=== PATIENT | male | born 1945 | race Caucasian/White ===

== ENCOUNTER → 2020-03-04 09:50 | Outpatient (BNV) | payer MEDICARE, OTHER, SELFPAY | PROVIDERS: PCP Physician Assistant; Visit Provider Internal Medicine | DX: C91.10 Chronic lymphocytic leukemia of B-cell type not having achieved remission (principal) | CPT/HCPCS: 99213; 99214; G2211 ==

== ENCOUNTER 2020-06-24 13:57 | Outpatient (REF) | payer MEDICARE, OTHER, SELFPAY ==
[2020-06-24 15:28] LABS: Alanine Aminotransferase 19 U/L (0-40); Alkaline Phosphatase 50 U/L (39-117); Anion Gap 10 (12-20); Aspartate Amino Transferase 25 U/L (5-37); Bilirubin Total 0.6 mg/dL (0.0-1.0); Blood Urea Nitrogen 15 mg/dL (9-16); Calcium 8.6 mg/dL (8.4-10.2); Carbon Dioxide 29 mmol/L (22-29); Chloride 104 mmol/L (96-108); Cholesterol 147 mg/dL; Estimated Glomerular Filt Rate > 60; Glucose Random 87 mg/dL (60-115); HDL Cholesterol 54 mg/dL; LDL Cholesterol Calculated 80 mg/dl; Potassium 4.4 mmol/L (3.3-5.1); Sodium 139 mmol/L (135-145); Total Protein 6.2 g/dL (6.5-8.0); Triglycerides 65 mg/dL
== END 2020-06-24 13:58 | disposition home or self-care (01) ==
LOC: HO.LAB 13:57
PROVIDERS: PCP Physician Assistant; Visit Provider Internal Medicine Cardiovascular Disease
DX: I10 Essential (primary) hypertension (principal)
CPT/HCPCS: 36415; 80053; 80061

== ENCOUNTER 2020-09-19 18:44 | Emergency (ER) | payer MEDICARE, OTHER, SELFPAY ==
--- NOTE | ~2020-09-19 | XR_ITS ---
EXAMINATION: RIGHT FOREARM AND RIGHT ELBOW. CLINICAL INFORMATION: Hit in the right arm with disc. Pain and laceration. COMPARISON: None TECHNIQUE: 3 views right elbow. 2 views right forearm FINDINGS: RIGHT FOREARM: There is no visible acute fracture or bony abnormality. The soft tissues are normal. RIGHT ELBOW: There is no visible acute fracture, dislocation or subluxation. The soft tissues are normal. XR/XR forearm RT 2V IMPRESSION: Unremarkable right forearm exam. Unremarkable right elbow exam.
--- NOTE | ~2020-09-19 | XR_ITS ---
EXAMINATION: RIGHT FOREARM AND RIGHT ELBOW. CLINICAL INFORMATION: Hit in the right arm with disc. Pain and laceration. COMPARISON: None TECHNIQUE: 3 views right elbow. 2 views right forearm FINDINGS: RIGHT FOREARM: There is no visible acute fracture or bony abnormality. The soft tissues are normal. RIGHT ELBOW: There is no visible acute fracture, dislocation or subluxation. The soft tissues are normal. XR/XR elbow RT min 3V IMPRESSION: Unremarkable right forearm exam. Unremarkable right elbow exam.
[2020-09-19 18:50] VITALS: BP 121/80; PULSE 65; RESP 16; TEMP 36.6; O2SAT 100; BMI 25.0
--- NOTE | 2020-09-19 19:54 | ED_ITS ---
HPI - Wound/Laceration General Chief Complaint: Wound/Laceration Stated Complaint: fish line in arm Time Seen by Provider: 09/19/20 19:30 Source: patient Mode of arrival: ambulatory Limitations: no limitations History of Present Illness HPI narrative: 75 y/o male with history of CLL, BPH, CAD on baby ASA, hypothyroidism, HTN presents to the ER with right forearm pain after he was hit with a discus today. He was playing a field, tripped over a tuft of grass when he was running and the discus grazed his right forehead and then hit his right inner forearm. He had an immediate bruise to his forearm and slight one to his upper right eye. No headache, dizziness, LOC or neck pain. He tightly wrapped his forearm and came to the ER for evaluation. He states his hand started to feel cold. No numbness or tingling. Onset (ago): hour(s) (2) Location: face Extremity Location: right: forearm Place: park Patient tetanus UTD: Yes Context: accidental Associated symptoms: pain Treatments prior to arrival: bandage Related Data Home Medications Medication Instructions Recorded Confirmed finasteride 5 mg tablet 5 mg PO DAILY 03/03/20 06/30/20 isosorbide mononitrate 30 mg 30 mg PO DAILY tab 03/03/20 06/30/20 tablet,extended release 24 hr lisinopril 2.5 mg tablet 2.5 mg PO DAILY 03/03/20 06/30/20 mexiletine 200 mg capsule 200 mg PO BID 03/03/20 06/30/20 ranolazine 500 mg tablet,extended 500 mg PO BID 03/03/20 06/30/20 release,12 hr tamsulosin 0.4 mg capsule 0.4 mg PO DAILY 03/03/20 06/30/20 alpha lipoic acid 200 mg PO 3XW 03/04/20 06/30/20 ascorbic acid (vitamin C) [Vitamin 1 g PO 3XW 03/04/20 06/30/20 C] aspirin 162 mg PO DAILY 03/04/20 06/30/20 cholecalciferol (vitamin D3) 50 mcg PO 3XW 03/04/20 06/30/20 [Vitamin D3] coenzyme Q10 [CoQ-10] 200 mg PO DAILY 03/04/20 06/30/20 ginkgo biloba 120 mg PO BID 03/04/20 06/30/20 hawthorn 100 mg PO DAILY 03/04/20 06/30/20 iron 10 mg PO 3XW 03/04/20 06/30/20 magnesium oxide,aspartate,citr 400 mg PO 3XW 03/04/20 06/30/20 rosuvastatin 20 mg tablet 20 mg PO BEDTIME 06/30/20 09/03/20 Previous Rx's Medication Instructions Recorded levothyroxine 112 mcg tablet 112 mcg PO QAM #90 tab 05/01/20 docusate sodium 100 mg capsule 100 mg PO DAILY 60 Days #60 cap 05/06/20 Allergies Allergy/AdvReac Type Severity Reaction Status Date / Time Penicillins [PENICILLINS] Allergy Mild HIVES Verified 06/30/20 11:26 Review of Systems 2 Review of Systems: Constitutional: No Fever, No Chills Eyes: + Eye Pain, No Swelling, No Redness Cardiovascular: No Chest Pain, No SOB Gastrointestinal: No Nausea, No Vomiting Musculoskeletal:+o joint pain, + Myalgias Skin: + Skin Lesions, No rash Neuro: No Weakness, No Numbness, No Dizziness, No Headache Heme/Lymph: + Bruising, No Lymphadenopathy PMFSH Past Medical History Medical History (Updated 09/19/20 @ 19:56 by RL Wall) CAD (coronary artery disease) CLL (chronic lymphocytic leukemia) Hx of cardiac arrest Hypercholesterolemia Hypothyroidism Skin cancer, basal cell Surgical History (Updated 09/03/20 @ 10:03 by Libra Wagner MD) History of bilateral knee arthroplasty Hx of colonoscopy Hx of thyroidectomy Family History Family History (Updated 09/03/20 @ 07:25 by Lora Sanchez) Mother Breast cancer Father Aneurysm Sister Pancreatic cancer Daughter Thyroid cancer Social History Social History (Updated 09/03/20 @ 09:54 by Lora Sanchez) Alcohol intake: current Alcohol intake frequency: 0-2 drinks per day Alcohol type: beer Smoking Status: Never smoker Advance Directives: No Advance Directives Information Provided: Yes Physical Exam Vital Signs: Vital Signs: Last Vital Signs Temp 97.8 F 09/19/20 18:50 Pulse 65 09/19/20 18:50 Resp 16 09/19/20 18:50 BP 121/80 09/19/20 18:50 Pulse Ox 100 09/19/20 18:50 Body Mass Index 25.0 Appearance: Alert. Oriented X3. No acute distress. HEENT: small ecchymosis to right upper orbit, mild tenderness. PERRLA, EOMI, no nystagmus CVS: Normal heart rate and rhythm. Pulses normal. Respiratory: No respiratory distress. Skin: Skin warm and dry. Normal skin color. Normal skin turgor. No rashes. Extremities: right ventral forearm with 4 cm superficial ecchymosis with de leon perficial abrasion. No active bleeding. NV intact distally. Neuro: Oriented X 3. No motor deficit. No sensory deficit. Course Course Course Narrative: 75 y/o male presenting with right forearm pain after he got hit with a discus. XR's are negative. Small bruise above right eye. No loss of consciousness. Not on blood thinners. Dressing applied to forearm. He was counseled on management of contusions and warning signs to return. He is stable for discharge. Discharge Plan Discharge Clinical Impression: Contusion Qualifiers: Encounter type: initial encounter Contusion area: forearm Laterality: right Qualified Code(s): S50.11XA - Contusion of right forearm, initial encounter Patient Disposition: Home, Self-Care Instructions: Contusion in Adults (ED) Additional Instructions: Your x-rays today were normal. Use ice to the area several times per day. Elevate when possible. Use bacitracin to the wound to help healing and prevent infection. Wear the DARRIN wrap as needed for comfort. Follow up with your doctor next week. Prescriptions: No Action levothyroxine 112 mcg tablet 112 mcg PO QAM Qty: 90 RF: 1 docusate sodium [Colace] 100 mg capsule 100 mg PO DAILY 60 Days Qty: 60 RF: 1 ginkgo biloba 120 mg Tablet 120 mg PO BID RF: 0 aspirin 162 mg Tablet,Delayed Release (Dr/Ec) 162 mg PO DAILY RF: 0 iron 18 mg Tablet 10 mg PO 3XW RF: 0 coenzyme Q10 [CoQ-10] 100 mg Capsule 200 mg PO DAILY RF: 0 ascorbic acid (vitamin C) [Vitamin C] 1,000 mg Tablet 1 g PO 3XW RF: 0 cholecalciferol (vitamin D3) [Vitamin D3] 50 mcg (2,000 unit) Tablet 50 mcg PO 3XW RF: 0 alpha lipoic acid 200 mg Tablet 200 mg PO 3XW RF: 0 hawthorn 250 mg Capsule 100 mg PO DAILY RF: 0 magnesium oxide,aspartate,citr 400 mg magnesium Capsule 400 mg PO 3XW RF: 0 finasteride 5 mg tablet 5 mg PO DAILY RF: 0 mexiletine 200 mg capsule 200 mg PO BID RF: 0 ranolazine 500 mg tablet extended release 12 hr 500 mg PO BID RF: 0 tamsulosin 0.4 mg capsule 0.4 mg PO DAILY RF: 0 lisinopril 2.5 mg tablet 2.5 mg PO DAILY RF: 0 isosorbide mononitrate 30 mg tablet extended release 24 hr 30 mg PO DAILY RF: 0 rosuvastatin 20 mg tablet 20 mg PO BEDTIME RF: 0
== END 2020-09-19 20:22 | disposition home or self-care (01) ==
PROVIDERS: Emergency Provider Emergency Medicine; PCP Physician Assistant
DX: S50.11XA Contusion of right forearm, initial encounter (principal); M79.631 Pain in right forearm; W01.0XXA Fall on same level from slipping, tripping and stumbling without subsequent striking against object, initial encounter; Y93.02 Activity, running; Y92.821 Forest as the place of occurrence of the external cause; Y99.9 Unspecified external cause status; Z79.899 Other long term (current) drug therapy
CPT/HCPCS: 73080; 73090; 99283

== ENCOUNTER 2020-11-14 10:12 | Emergency (ER) | payer MEDICARE, OTHER, SELFPAY ==
--- NOTE | ~2020-11-14 | XR_ITS ---
EXAMINATION: XR SHOULDER, LEFT CLINICAL INFORMATION: Pain. COMPARISON: None TECHNIQUE: Three views of the left shoulder. FINDINGS: There is mild reduction in the glenohumeral joint space with inferior periarticular spurring. The AC joint space is maintained.. There are 2 dense loose body seen in the subscapularis bursa measuring 2 cm and 1 cm. The soft tissues are normal. XR/XR shoulder LT min 2V IMPRESSION: Mild degenerative changes left glenohumeral joint space. 2 loose bodies in the subscapularis bursa.
--- NOTE | ~2020-11-14 | XR_ITS ---
EXAMINATION: LUMBAR SPINE AND PELVIS AND LEFT HIP X-RAY CLINICAL INFORMATION: Fall. Pain. COMPARISON: None TECHNIQUE: 3 views of the lumbar spine, one view of the pelvis and 2 views of the left hip FINDINGS: Lumbar spine: There is mild 5 mm anterior subluxation of L4 with respect L5. Bone alignment is otherwise normal. No fracture or dislocation is seen. Disc spaces are normal. There is lower lumbar spine facet arthritis. There is evidence of atherosclerotic disease. There is a pacemaker defibrillator device projecting over the heart. Pelvis and left hip: Bone alignment is normal. No fracture or dislocation is seen. There is left hip arthritis with joint space narrowing, osteophyte formation and some subchondral cyst formation. Bones of the pelvis are unremarkable. Soft tissues are unremarkable. XR/XR lumbar spine 2-3V IMPRESSION: Lumbar spine: No fracture or dislocation. Mild anterior subluxation of L4 with respect L5 probably related to facet arthritis. Pelvis and left hip x-ray: No fracture or dislocation. Left hip arthritis.
--- NOTE | ~2020-11-14 | XR_ITS ---
EXAMINATION: LUMBAR SPINE AND PELVIS AND LEFT HIP X-RAY CLINICAL INFORMATION: Fall. Pain. COMPARISON: None TECHNIQUE: 3 views of the lumbar spine, one view of the pelvis and 2 views of the left hip FINDINGS: Lumbar spine: There is mild 5 mm anterior subluxation of L4 with respect L5. Bone alignment is otherwise normal. No fracture or dislocation is seen. Disc spaces are normal. There is lower lumbar spine facet arthritis. There is evidence of atherosclerotic disease. There is a pacemaker defibrillator device projecting over the heart. Pelvis and left hip: Bone alignment is normal. No fracture or dislocation is seen. There is left hip arthritis with joint space narrowing, osteophyte formation and some subchondral cyst formation. Bones of the pelvis are unremarkable. Soft tissues are unremarkable. XR/XR hip LT w PEL1V IMPRESSION: Lumbar spine: No fracture or dislocation. Mild anterior subluxation of L4 with respect L5 probably related to facet arthritis. Pelvis and left hip x-ray: No fracture or dislocation. Left hip arthritis.
[2020-11-14 10:14] VITALS: BP 112/69; PULSE 65; RESP 16; TEMP 36.1; O2SAT 98; BMI 24.3
--- NOTE | 2020-11-14 12:37 | ED.FALL ---
HPI - Fall General Chief Complaint: Fall Stated Complaint: SHOULDER PAIN Time Seen by Provider: 11/14/20 10:54 Source: patient Mode of arrival: ambulatory Limitations: no limitations History of Present Illness HPI Narrative: 75-year-old male with a past medical history of coronary artery disease, CLL, high cholesterol, hypothyroidism here with complaints of fall last evening. Patient tells me that he slipped on 1 stair falling backwards hitting his left lower back and left shoulder. He denies head injury or loss of consciousness. He is not on any anticoagulation. He is ambulatory. Related Data Home Medications Medication Instructions Recorded Confirmed lisinopril 2.5 mg tablet 2.5 mg PO DAILY 03/03/20 10/28/20 mexiletine 200 mg capsule 200 mg PO BID 03/03/20 10/28/20 ranolazine 500 mg tablet,extended 500 mg PO BID 03/03/20 10/28/20 release,12 hr alpha lipoic acid 200 mg PO 3XW 03/04/20 10/28/20 ascorbic acid (vitamin C) [Vitamin 1 g PO 3XW 03/04/20 10/28/20 C] aspirin 162 mg PO DAILY 03/04/20 10/28/20 cholecalciferol (vitamin D3) 50 mcg PO 3XW 03/04/20 10/28/20 [Vitamin D3] coenzyme Q10 [CoQ-10] 200 mg PO DAILY 03/04/20 10/28/20 ginkgo biloba 120 mg PO BID 03/04/20 10/28/20 hawthorn 100 mg PO DAILY 03/04/20 10/28/20 iron 10 mg PO 3XW 03/04/20 10/28/20 magnesium oxide,aspartate,citr 400 mg PO 3XW 03/04/20 10/28/20 rosuvastatin 20 mg tablet 20 mg PO BEDTIME 06/30/20 10/28/20 Previous Rx's Medication Instructions Recorded levothyroxine 112 mcg tablet 112 mcg PO QAM #90 tab 05/01/20 tamsulosin 0.4 mg capsule 0.4 mg PO DAILY #90 cap 09/23/20 docusate sodium 100 mg capsule 100 mg PO DAILY 60 Days #60 cap 09/29/20 finasteride 5 mg tablet 5 mg PO DAILY #90 tab 10/28/20 isosorbide mononitrate 30 mg 30 mg PO DAILY 30 Days #30 tab 11/12/20 tablet,extended release 24 hr Allergies Allergy/AdvReac Type Severity Reaction Status Date / Time Penicillins [PENICILLINS] Allergy Mild HIVES Verified 10/28/20 13:54 Review of Systems Review of Systems: Yes all other systems are reviewed and are negative Constitutional: Constitutional: Reports no additional constitutional complaints, Denies body ache(s), Denies chills, Denies fever(s), Denies headache(s) and Denies weakness Eyes: Eyes: Reports no additional eye complaints and Denies change in vision ENT: Reports system reviewed and no additional complaints, except as documented, Denies dizziness, Denies headache(s), Denies nasal congestion, Denies nasal discharge and Denies neck pain Cardiovascular: Cardiovascular: Reports no additional cardiovascular complaints, Denies chest pain, Denies leg edema and Denies dyspnea Respiratory: Respiratory: Reports no additional respiratory complaints, Denies cough and Denies dyspnea Gastrointestinal: Gastrointestinal: Reports no additional gastrointestinal complaints, Denies abdominal pain, Denies diarrhea, Denies nausea and Denies vomiting Genitourinary: Genitourinary: Denies urinary incontinence Musculoskeletal: Musculoskeletal: Reports no additional musculoskeletal complaints, Reports back pain, Reports arthralgias, Denies joint swelling, Denies neck pain, Denies numbness and Denies tingling Integumentary/Breasts: Skin/Breast: Reports system reviewed and no additional complaints, except as docu and Denies rash Neurologic: Reports system reviewed and no additional complaints, except as documented, Denies Abnormal speech present, Denies dizziness, Denies headache(s), Denies numbness, Denies tingling and Denies weakness [facility] Past Medical History Attestation statement: The following information was validated with the patient. Source: old records reviewed and nursing notes reviewed Medical History CAD (coronary artery disease) CLL (chronic lymphocytic leukemia) Hx of cardiac arrest Hypercholesterolemia Hypothyroidism Skin cancer, basal cell Surgical History History of bilateral knee arthroplasty Hx of colonoscopy Hx of thyroidectomy Family History Family History Mother Breast cancer Father Aneurysm Sister Pancreatic cancer Daughter Thyroid cancer Social History Social History Housing: House Alcohol intake: current Alcohol intake frequency: 0-2 drinks per day Alcohol type: beer Patient Tobacco Use Status: Never used Tobacco Second Hand Smoke Exposure: No Advance Directives: Yes Advance Directives Information Provided: Yes Advance Directives on File: No service: No Current occupational status: retired Physical Exam Vital Signs: Vital Signs: Last Vital Signs Temp 96.9 F 11/14/20 10:14 Pulse 65 11/14/20 10:14 Resp 16 11/14/20 10:14 BP 112/69 11/14/20 10:14 Pulse Ox 98 11/14/20 10:14 Body Mass Index 24.3 Const: General: cooperative, healthy appearing, comfortable and no acute distress Orientation/consciousness: patient oriented x3 Limitations: no limitations HENMT: Head: Yes normal to inspection Ears: hearing grossly normal bilaterally General nose exam: Normal external nose present Face and sinus: Yes normal facial exam Mouth: Normal oral and palatal mucosa present Throat: Yes posterior oropharynx normal Eyes: General: appearance normal, both eyes and all related structures Pupils: Equal, round and reactive pupils present Neck: Other: no midline tenderness, step-offs or deformities. Full range of motion Neck: Yes normal visual inspection Chest: Chest palpation & inspection: normal inspection of the chest Resp: Effort & Inspection: normal respiratory effort Auscultation: clear to auscultation bilaterally Cardio: Rate: regular rate Rhythm: regular rhythm Peripheral pulses: Peripheral pulses 2+ throughout GI: Inspection: Yes normal to inspection Palpation (GI): Soft to palpation and nontender Auscultation: normal bowel sounds Back/Spine/Pelvis: Other: no lumbar midline tenderness. There is tenderness over the left SI joint and left lumbar soft tissue area as well as over the left posterior hip and pelvis. The patient has full range of motion. He is ambulatory in the room. No ecchymosis, swelling or deformity Thoracic/Lumbar Spine: thoracic and lumbar spine normal to inspection Skin: General skin exam: no rashes or lesions noted Neuro: General: patient oriented x3, no focal motor deficits and normal sensation to monofilament Cranial nerves: Yes CN's II-XII intact bilaterally, Yes Equal, round and reactive pupils present, Yes Bilaterally intact EOM present, Yes Nystagmus not present, Yes Normal facial strength present and Yes Midline tongue present Cognition (Neuro): normal cognition Speech: No Abnormal speech present Gait exam (Neuro): Normal gait present Motor exam (neuro): 5/5 motor strength present throughout Sensory Exam: Normal double simultaneous stimulation for sensation Coordination: [id number] test normal, [id number] test normal and tandem gait normal Extrem: Other: tenderness to left posterior shoulder with full range of motion and no obvious ecchymosis, deformity or swelling. General: Yes normal to inspection Course Course Course Narrative: Mechanical fall with several MS complaints. no head injury or loss of consciousness. Normal neurological exam. Hemodynamically stable. Patient not on anticoagulation. Will check imaging. - x-ray show no bony abnormality. Likely some degenerative changes in the left shoulder but no acute fracture. Reviewed findings with the patient. Again he is ambulatory without assistance. Recommended supportive care at home. Reviewed worrisome signs and symptoms of when to return to the emergency department. Comfortable discharge home. MDM - Fall Medical Records Attestation: I reviewed the patient's medical records. Lab Data Attestation: I reviewed the patient's lab results. Imaging Data shoulder x-ray: Attestation: I personally reviewed and interpreted this imaging study as follows: Radiologist's impression: EXAMINATION: XR SHOULDER, LEFT CLINICAL INFORMATION: Pain. COMPARISON: None TECHNIQUE: Three views of the left shoulder. FINDINGS: There is mild reduction in the glenohumeral joint space with inferior periarticular spurring. The AC joint space is maintained.. There are 2 dense loose body seen in the subscapularis bursa measuring 2 cm and 1 cm. The soft tissues are normal. XR/XR shoulder LT min 2V IMPRESSION: Mild degenerative changes left glenohumeral joint space. 2 loose bodies in the subscapularis bursa. hip/pelvis/lumbar xray: Attestation: I personally reviewed and interpreted this imaging study as follows: Radiologist's impression: t hip FINDINGS: Lumbar spine: There is mild 5 mm anterior subluxation of L4 with respect L5. Bone alignment is otherwise normal. No fracture or dislocation is seen. Disc spaces are normal. There is lower lumbar spine facet arthritis. There is evidence of atherosclerotic disease. There is a pacemaker defibrillator device projecting over the heart. Pelvis and left hip: Bone alignment is normal. No fracture or dislocation is seen. There is left hip arthritis with joint space narrowing, osteophyte formation and some subchondral cyst formation. Bones of the pelvis are unremarkable. Soft tissues are unremarkable. XR/XR lumbar spine 2-3V IMPRESSION: Lumbar spine: No fracture or dislocation. Mild anterior subluxation of L4 with respect L5 probably related to facet arthritis. Pelvis and left hip x-ray: No fracture or dislocation. Left hip arthritis. Discharge Plan Discharge Clinical Impression: Contusion of shoulder, Contusion of hip Patient Disposition: Home, Self-Care Instructions: Contusion in Adults (ED) Additional Instructions: ice at 1st then transition to heat gentle stretching Tylenol for pain follow-up with primary care if continuing to have pain after several days Prescriptions: No Action levothyroxine 112 mcg tablet 112 mcg PO QAM Qty: 90 RF: 1 tamsulosin 0.4 mg capsule 0.4 mg PO DAILY Qty: 90 RF: 0 docusate sodium [Colace] 100 mg capsule 100 mg PO DAILY 60 Days Qty: 60 RF: 3 finasteride 5 mg tablet 5 mg PO DAILY Qty: 90 RF: 0 isosorbide mononitrate 30 mg tablet extended release 24 hr 30 mg PO DAILY 30 Days Qty: 30 RF: 2 ginkgo biloba 120 mg Tablet 120 mg PO BID RF: 0 aspirin 162 mg Tablet,Delayed Release (Dr/Ec) 162 mg PO DAILY RF: 0 iron 18 mg Tablet 10 mg PO 3XW RF: 0 coenzyme Q10 [CoQ-10] 100 mg Capsule 200 mg PO DAILY RF: 0 ascorbic acid (vitamin C) [Vitamin C] 1,000 mg Tablet 1 g PO 3XW RF: 0 cholecalciferol (vitamin D3) [Vitamin D3] 50 mcg (2,000 unit) Tablet 50 mcg PO 3XW RF: 0 alpha lipoic acid 200 mg Tablet 200 mg PO 3XW RF: 0 hawthorn 250 mg Capsule 100 mg PO DAILY RF: 0 magnesium oxide,aspartate,citr 400 mg magnesium Capsule 400 mg PO 3XW RF: 0 mexiletine 200 mg capsule 200 mg PO BID RF: 0 ranolazine 500 mg tablet extended release 12 hr 500 mg PO BID RF: 0 lisinopril 2.5 mg tablet 2.5 mg PO DAILY RF: 0 rosuvastatin 20 mg tablet 20 mg PO BEDTIME RF: 0 Referrals: Eitan Ocampo PA-C [Primary Care Provider] - 2 days Interventions: ED Discharge Assessment Last Done: 11/14/20 12:30 Discharge Date/Time: 11/14/20 12:31
== END 2020-11-14 12:31 | disposition home or self-care (01) ==
PROVIDERS: Emergency Provider Emergency Medicine Emergency Medical Services; PCP Physician Assistant
DX: S40.012A Contusion of left shoulder, initial encounter (principal); S70.02XA Contusion of left hip, initial encounter; I25.10 Atherosclerotic heart disease of native coronary artery without angina pectoris; Z79.82 Long term (current) use of aspirin; W01.0XXA Fall on same level from slipping, tripping and stumbling without subsequent striking against object, initial encounter; Y93.9 Activity, unspecified; Y92.9 Unspecified place or not applicable; Y99.9 Unspecified external cause status; Z86.74 Personal history of sudden cardiac arrest
CPT/HCPCS: 72100; 73030; 73502; 99283

== ENCOUNTER 2021-01-30 08:18 | Outpatient (REF) | payer MEDICARE, OTHER, SELFPAY | END 2021-01-30 08:19 | disposition home or self-care (01) | LOC: HO.LAB 08:18 | PROVIDERS: PCP Physician Assistant; Visit Provider Physician Assistant | DX: Z20.822 Contact with and (suspected) exposure to COVID-19 (principal) | CPT/HCPCS: U0003; U0005 ==

== ENCOUNTER 2021-02-19 13:12 | Outpatient (REF) | payer MEDICARE, OTHER, SELFPAY ==
[2021-02-19 13:37] LABS: Hematocrit 38.8 % (42-52); Mean Corpuscular HGB Conc 33.5 g/dl (31.0-36.0); Mean Corpuscular Hemoglobin 31.6 pg (27.0-33.0); Mean Corpuscular Volume 94.2 fL (80-98); Platelet Count 152 X10*3/uL (160-400); Red Blood Count 4.12 X10*6/uL (4.60-5.80); Red Cell Distribution Width 12.4 % (11.0-16.0); White Blood Count 8.9 X10*3/uL (4.8-10.8)
[2021-02-19 13:55] LABS: Alanine Aminotransferase 13 U/L (0-40); Alkaline Phosphatase 45 U/L (39-117); Anion Gap 9 (12-20); Aspartate Amino Transferase 20 U/L (5-37); Bilirubin Total 0.6 mg/dL (0.0-1.0); Blood Urea Nitrogen 14 mg/dL (9-16); Calcium 9.1 mg/dL (8.4-10.2); Carbon Dioxide 29 mmol/L (22-29); Chloride 106 mmol/L (96-108); Cholesterol 135 mg/dL; Estimated Glomerular Filt Rate > 60; Glucose Fasting 93 mg/dL (60-99); HDL Cholesterol 57 mg/dL; LDL Cholesterol Calculated 71 mg/dl; Potassium 4.1 mmol/L (3.3-5.1); Sodium 140 mmol/L (135-145); Total Protein 6.1 g/dL (6.5-8.0); Triglycerides 35 mg/dL
[2021-02-19 14:15] LABS: TSH reflex Free T4 2.45 uIU/mL (0.32-4.0)
== END 2021-02-19 13:13 | disposition home or self-care (01) ==
LOC: HO.LAB 13:12
PROVIDERS: PCP Physician Assistant; Visit Provider Physician Assistant
DX: I10 Essential (primary) hypertension (principal)
CPT/HCPCS: 36415; 80053; 80061; 84443; 85027

== ENCOUNTER 2021-09-19 11:24 | Outpatient (REF) | payer MEDICARE, OTHER, SELFPAY ==
--- NOTE | ~2021-09-19 | XR_ITS ---
EXAMINATION: XR elbow RT min 3V CLINICAL INFORMATION: Elbow sprain COMPARISON: None TECHNIQUE: 4 views of the elbow XR/XR elbow RT min 3V FINDINGS/IMPRESSION: Soft tissue swelling is noted along the dorsal aspect of the elbow, without findings to suggest acute fracture or dislocation. Mild enthesopathy along the insertion of the triceps tendon.
[2021-09-19 13:30] LABS: Estimated Average Glucose 100 mg/dL; Hemoglobin A1c % 5.1 %
[2021-09-19 13:31] LABS: Hematocrit 37.8 % (42.0-52.0); Hemoglobin 12.6 g/dl (14.0-18.0); Mean Corpuscular HGB Conc 33.3 g/dl (31.0-36.0); Mean Corpuscular Hemoglobin 31.7 pg (27.0-33.0); Mean Corpuscular Volume 95.2 fL (80.0-98.0); Mean Platelet Volume 10.2 fL (9.4-12.4); Platelet Count 167 X10*3/uL (160-400); Red Blood Count 3.97 X10*6/uL (4.60-5.80); Red Cell Distribution Width 12.7 % (11.0-16.0); White Blood Count 8.7 X10*3/uL (4.8-10.8)
[2021-09-19 13:38] LABS: Creatinine Urine 86.34 mg/dL; Microalbumin Urine < 5.0 mg/L
[2021-09-19 13:39] LABS: Alanine Aminotransferase 17 U/L (0-40); Albumin Level 3.9 g/dL (3.5-5.0); Alkaline Phosphatase 45 U/L (39-117); Anion Gap 11 (12-20); Aspartate Amino Transferase 20 U/L (5-37); Bilirubin Total 0.6 mg/dL (0.0-1.0); Blood Urea Nitrogen 13 mg/dL (9-16); Calcium 9.2 mg/dL (8.4-10.2); Carbon Dioxide 25 mmol/L (22-29); Chloride 107 mmol/L (96-108); Cholesterol 128 mg/dL; Estimated Glomerular Filt Rate > 60; Glucose Fasting 101 mg/dL (60-99); HDL Cholesterol 58 mg/dL; LDL Cholesterol Calculated 63 mg/dl; Potassium 4.2 mmol/L (3.3-5.1); Sodium 139 mmol/L (135-145); Total Protein 6.2 g/dL (6.5-8.0); Triglycerides 36 mg/dL
[2021-09-19 13:58] LABS: Prostate Specific Antigen Scr 0.62 ng/mL (<0.05-4.0); TSH reflex Free T4 3.87 uIU/mL (0.32-4.0)
== END 2021-09-19 11:25 | disposition home or self-care (01) ==
LOC: HO.HMGCX 11:24
PROVIDERS: Absent Provider Physician Assistant; PCP Physician Assistant; Visit Provider Internal Medicine
DX: Z12.5 Encounter for screening for malignant neoplasm of prostate (principal); S53.401A Unspecified sprain of right elbow, initial encounter; I10 Essential (primary) hypertension; E03.9 Hypothyroidism, unspecified
CPT/HCPCS: 36415; 73080; 80053; 80061; 82043; 83036; 84153; 84443; 85027

== ENCOUNTER 2021-11-30 12:17 | Outpatient (REF) | payer MEDICARE, OTHER, SELFPAY ==
[2021-11-30 13:04] LABS: Urine Cytology See Pathology rpt
[2021-11-30 13:13] LABS: Appearance Urine CLEAR; Color Urine YELLOW; Glucose Urine UA NEG (NEG); Leukocyte Esterase Urine NEG (NEG); Nitrite Urine NEG (NEG); Urine Blood NEG (NEG); Urine Ketones NEG (NEG); Urine Protein NEG (NEG-TRACE)
[2021-11-30 13:29] LABS: Creatinine Urine 53.16 mg/dL; Microalbumin Urine < 5.0 mg/L
== END 2021-11-30 12:18 | disposition home or self-care (01) ==
LOC: HO.LAB 12:17
PROVIDERS: Visit Provider Physician Assistant
DX: I10 Essential (primary) hypertension (principal); R30.0 Dysuria
CPT/HCPCS: 81003; 82043; 88112

== ENCOUNTER 2022-01-12 13:47 | Outpatient (REF) | payer MEDICARE, OTHER, SELFPAY ==
[2022-01-14 05:37] LABS: Lyme Abs Screen <0.90 index
== END 2022-01-12 13:48 | disposition home or self-care (01) ==
LOC: HO.LAB 13:47
PROVIDERS: PCP Physician Assistant; Visit Provider Physician Assistant
DX: M25.50 Pain in unspecified joint (principal)
CPT/HCPCS: 36415; 86617; 86618

== ENCOUNTER 2022-01-27 14:46 | Outpatient (REF) | payer MEDICARE, OTHER, SELFPAY ==
--- NOTE | ~2022-01-27 | XR_ITS ---
EXAMINATION: XR HIP, RIGHT CLINICAL INFORMATION: Pain COMPARISON: Radiographs 11/14/2020 TECHNIQUE: Two views of the right hip. FINDINGS: No acute fracture or dislocation. Joint spaces are maintained. Calcified phleboliths in the pelvis. XR/XR hip RT min 2V IMPRESSION: Unremarkable right hip radiographs.
== END 2022-01-27 14:47 | disposition home or self-care (01) ==
LOC: HO.XRAY 14:46
PROVIDERS: PCP Physician Assistant; Visit Provider Physician Assistant
DX: M25.551 Pain in right hip (principal)
CPT/HCPCS: 73502

== ENCOUNTER → 2022-10-19 14:18 | Outpatient (REF) | payer MEDICARE, OTHER, SELFPAY ==
--- NOTE | 2022-10-19 14:24 | ECG_ITS ---
Test Reason : preop Blood Pressure : / mmHG Vent. Rate : 067 BPM Atrial Rate : 067 BPM P-R Int : 220 ms QRS Dur : 122 ms QT Int : 424 ms P-R-T Axes : 062 005 081 degrees QTc Int : 448 ms Atrial paced V sensed rhythm Non-specific intra-ventricular conduction delay Nonspecific T wave abnormality Abnormal ECG When compared with ECG of 27-JUN-2019 19:25, No significant changes seen Referred By: Lise Alvarado Electronically Signed By:Juan M Galvez
== END ==
LOC: HO.CARD 14:18
PROVIDERS: PCP Physician Assistant; Visit Provider Nurse Practitioner Family
DX: Z01.818 Encounter for other preprocedural examination (principal)
CPT/HCPCS: 93005

== ENCOUNTER 2022-11-08 17:56 | Emergency (ER) | payer MEDICARE, OTHER, SELFPAY ==
--- NOTE | ~2022-11-08 | XR_ITS ---
EXAMINATION: XR CHEST CLINICAL INFORMATION: Chest pain COMPARISON: Previous chest x-ray most recent June 2019 TECHNIQUE: 2 views of the chest were obtained. FINDINGS: The cardiac silhouette does not appear enlarged. Left subclavian chamber pacemaker AICD device. The thoracic aorta is tortuous. Hilar and mediastinal contours are otherwise unremarkable. The lungs are clear. No pleural effusion or pneumothorax. Mild degenerative changes of the spine. XR/XR chest 2V IMPRESSION: No evidence for acute disease in the chest.
--- NOTE | 2022-11-08 17:58 | ECG_ITS ---
Test Reason : arrythmia Blood Pressure : / mmHG Vent. Rate : 065 BPM Atrial Rate : 065 BPM P-R Int : 250 ms QRS Dur : 112 ms QT Int : 446 ms P-R-T Axes : 000 -10 086 degrees QTc Int : 463 ms Atrial-paced rhythm with prolonged AV conduction Incomplete right bundle branch block Nonspecific T wave abnormality Prolonged QT Abnormal ECG When compared with ECG of 19-OCT-2022 14:24, No significant changes seen Referred By: Lise Welch Electronically Signed By:Juan M Galvez
[2022-11-08 18:15] VITALS: BP 143/93; PULSE 64; RESP 16; TEMP 36.4; O2SAT 97; BMI 25.2
--- NOTE | 2022-11-08 18:15 | ED_ITS ---
HPI - General Adult General Chief complaint: General Medical Stated complaint: pacemaker issues/ ekg Time Seen by Provider: 11/08/22 21:12 Source: patient Mode of arrival: ambulatory Limitations: no limitations History of Present Illness HPI narrative: Patient is 77 years old with history of CLL, BPH, hypothyroidism, hypertension and coronary artery disease history of [place] in the past has AICD [employer] specific, placed for ventricular fibrillation and cardiac arrest while running in 12/2016 Battery supposed to last till 2023 has aannual checkup comes here as earlier today at 11:00 when he was asymptomatic checks his blood pressure monitor shows heart rate of 55. Patient asymptomatic call the front end manager office this at to see him this week patient does have a monitor at home did not get any alert no shock was given on arrival patient's heart rate is in the 80s with stable blood pressure Related Data Home Medications Medication Instructions Recorded Confirmed mexiletine 200 mg capsule 200 mg PO BID 03/03/20 09/07/22 ranolazine 500 mg tablet,extended 500 mg PO BID 03/03/20 09/07/22 release,12 hr alpha lipoic acid 200 mg tablet 200 mg PO 3XW 03/04/20 09/07/22 ascorbic acid (vitamin C) 1,000 mg 1 g PO 3XW 03/04/20 09/07/22 tablet (Vitamin C) aspirin 162 mg tablet,delayed 162 mg PO DAILY 03/04/20 09/07/22 release cholecalciferol (vitamin D3) 50 50 mcg PO 3XW 03/04/20 09/07/22 mcg (2,000 unit) tablet (Vitamin D3) coenzyme Q10 100 mg capsule 200 mg PO DAILY 03/04/20 09/07/22 (CoQ-10) ginkgo biloba 120 mg tablet 120 mg PO BID 03/04/20 09/07/22 hawthorn 250 mg capsule 100 mg PO DAILY 03/04/20 09/07/22 iron 18 mg tablet 10 mg PO 3XW 03/04/20 09/07/22 magnesium oxide,aspartate,citr 400 mg PO 3XW 03/04/20 09/07/22 Previous Rx's Medication Instructions Recorded isosorbide mononitrate 30 mg 15 mg PO DAILY #90 tabs 05/21/22 tablet,extended release 24 hr levothyroxine 112 mcg tablet 112 mcg PO QAM #90 tabs 06/29/22 rosuvastatin 20 mg tablet 20 mg PO BEDTIME 90 days #90 tabs 07/08/22 finasteride 5 mg tablet 5 mg PO DAILY #90 tabs 07/19/22 nitroglycerin 0.4 mg sublingual 0.4 mg sublingual Q5M PRN chest 08/10/22 tablet pain 15 days #30 tabs tamsulosin 0.4 mg capsule 0.4 mg PO DAILY #90 caps 09/14/22 blood pressure test kit-medium #1 ea 10/19/22 docusate sodium 100 mg capsule 100 mg PO DAILY 60 days #60 caps 11/02/22 (Colace) lactulose 10 gram/15 mL (15 mL) 10 g (15 mL) PO DAILY PRN laxative 11/02/22 oral solution effect 30 days #600 mL lisinopril 2.5 mg tablet 2.5 mg PO DAILY #30 tabs 11/05/22 Allergies Allergy/AdvReac Type Severity Reaction Status Date / Time Penicillins [PENICILLINS] Allergy Mild HIVES Verified 11/08/22 18:22 Review of Systems Review of Systems: Yes all other systems are reviewed and are negative [facility] Past Medical History Medical History CAD (coronary artery disease) CLL (chronic lymphocytic leukemia) Hx of cardiac arrest Hypercholesterolemia Hypothyroidism Skin cancer, basal cell Surgical History History of bilateral knee arthroplasty Hx of colonoscopy Hx of thyroidectomy Family History Family History Mother Breast cancer Father Aneurysm Sister Pancreatic cancer Daughter Thyroid cancer Social History Social History Household Members: Family Housing: House Alcohol intake: current Alcohol intake frequency: a few times a week Alcohol type: beer Patient Tobacco Use Status: Never used Tobacco Smoked in Last 30 Days: No e-Cigarette/Vaping Use: Never Used Second Hand Smoke Exposure: No Use of substances other than those prescribed or required for medical reasons: No Advance Directives: No Advance Directives Information Provided: No service: No Current occupational status: retired Current occupational exposures/hazards: No Cognitive needs: No Hearing needs: Yes Vision needs: Yes Physical Exam ED Vital Signs: Vital Signs - 24 hr 11/08/22 18:15 11/08/22 18:42 11/08/22 20:30 Temperature 97.6 F 97.9 F Pulse Rate 64 65 63 Respiratory Rate 16 18 17 Blood Pressure 143/93 H 156/86 H 150/94 H Pulse Oximetry 97 99 97 Oxygen Delivery Method Room Air Room Air Room Air 11/08/22 22:57 Temperature Pulse Rate 78 Respiratory Rate 12 Blood Pressure 137/85 Pulse Oximetry 98 Oxygen Delivery Method Room Air BMI result Body Mass Index 25.2 Appearance: Alert. Oriented X3. No acute distress. Eyes: PERRLA, No Nystagmus ENT: Pharynx normal. Oral Mucosa moist Neck: Normal inspection. Neck supple. CVS: Irregularly irregular pulses. No murmur/or rub Respiratory: No respiratory distress. Equal air entry bilateral, no wheezing/rales/rhonchi Abdomen: Soft and nontender. Bowel sounds are present, no mass palpable, no CVA tenderness Skin: Skin warm and dry. Normal skin color. Normal skin turgor. Extremities: No lower extremity edema. No calf tenderness Neuro: Oriented X 3. No motor deficit. No sensory deficit.No cerebellar signs , cranial nerves II-XII intact Course Course Course Narrative: RME - 77 y/o male with history of CAD, HTN, hypothyroidism, hx Vfib arrest s/p [employer] AICD/PPM placed in December 2016 at [facility] who presents to ER for evaluation of possible malfunctioning pacemaker. His HR was 55 over the weekend. He was having mild chest pains, that are usual for him. Plan: EKG, labs, interrogate pacemaker Medical Decision Making Medical Decision Making [facility] Narrative: Case discussed with front end manager Dr. England advised patient to follow-up with his front end manager during stay in the ER patient vitals are stable heart rates above 65 Lab Data [facility] Lab Attestation statement: I reviewed the patient's lab results. 11/08/22 18:57 11/08/22 20:06 Labs: Lab Results 11/08/22 11/08/22 11/08/22 Range/Units 18:57 18:57 20:06 WBC 9.8 (4.8-10.8) X10*3/uL RBC 4.19 L (4.60-5.80) X10*6/uL Hgb 13.5 L (14.0-18.0) g/dl Hct 39.7 L (42.0-52.0) % MCV 94.7 (80.0-98.0) fL MCH 32.2 (27.0-33.0) pg MCHC 34.0 (31.0-36.0) g/dl RDW 12.5 (11.0-16.0) % Plt Count 153 L (160-400) X10*3/uL MPV 9.8 (9.4-12.4) fL Immature Gran % (Auto) 0.1 (0.0-0.4) % Neut % (Auto) 30.6 L (45-73) % Lymph % (Auto) 61.4 H (20-40) % [place] % (Auto) 5.7 (2-11) % Eos % (Auto) 1.6 (0-4) % Baso % (Auto) 0.6 (0-2) % Lymph # (Auto) 6.0 H (1.2-4.9) X10*3/uL [place] # (Auto) 0.6 (0.1-1.2) X10*3/uL Eos # (Auto) 0.2 (0.0-0.4) X10*3/uL Baso # (Auto) 0.1 (0.0-0.2) X10*3/uL Abs Immat Gran (auto) 0.01 (0.00-0.03) X10*3/uL Absolute Neuts (auto) 3.0 (2.0-8.3) x10*3/uL Absolute Nucleated RBC 0.000 (0.0-0.012) X10*3/uL Nucleated RBC % (auto) 0.0 (0.0-0.2) /100WBC Smear Tech's Comments VERIFIED Sodium 139 (135-145) mmol/L Potassium 4.7 (3.3-5.1) mmol/L Chloride 109 H (96-108) mmol/L Carbon Dioxide 22 (22-29) mmol/L Anion Gap 13 (12-20) BUN 10 (9-16) mg/dL Creatinine 0.79 (0.5-1.4) mg/dL Estim Creat Clear Calc 72.0 Estimated GFR > 60 Random Glucose 89 (60-115) mg/dL Calcium 9.0 (8.4-10.2) mg/dL Magnesium 2.3 (1.6-2.6) mg/dL Total Bilirubin 0.6 (0.0-1.0) mg/dL Direct Bilirubin 0.1 (0.0-0.5) mg/dL AST 28 (5-37) U/L ALT 15 (0-40) U/L Alkaline Phosphatase 41 (39-117) U/L Troponin I High Sens < 2.7 (<3.5-35.0) ng/L Total Protein 6.3 L (6.5-8.0) g/dL Albumin 3.9 (3.5-5.0) g/dL Independent Interpretation I performed an independent interpretation of an: EKG Interpretation: Pacemaker beats heart rate 65 beats per minute nonspecific ST T wave changes no acute ischemia Discharge Plan Discharge Clinical Impression: AICD problem Patient Disposition: Home, Self-Care Instructions: Pacemaker (DC) Additional Instructions: Follow-up with your front end manager/PCP if any concerns Report to ER if any shock from your AICD/syncope episode Prescriptions: No Action isosorbide mononitrate 30 mg tablet extended release 24 hr 15 mg PO DAILY Qty: 90 0RF Rx Instructions: 30mg 2-3 times/wk, 15mg 4-5 times/wk levothyroxine 112 mcg tablet 112 mcg PO QAM Qty: 90 1RF rosuvastatin 20 mg tablet 20 mg PO BEDTIME 90 Days Qty: 90 2RF finasteride 5 mg tablet 5 mg PO DAILY Qty: 90 1RF nitroglycerin 0.4 mg tablet, sublingual 0.4 mg sublingual Q5M PRN (Reason: chest pain) 15 Days Qty: 30 0RF Rx Instructions: do not exceed 3 doses per episode tamsulosin 0.4 mg capsule 0.4 mg PO DAILY Qty: 90 2RF docusate sodium [Colace] 100 mg capsule 100 mg PO DAILY 60 Days Qty: 60 3RF lactulose 10 gram/15 mL (15 mL) solution 10 g PO DAILY PRN (Reason: laxative effect) 30 Days Qty: 600 3RF lisinopril 2.5 mg tablet 2.5 mg PO DAILY Qty: 30 0RF ginkgo biloba 120 mg Tablet 120 mg PO BID aspirin 162 mg Tablet,Delayed Release (Dr/Ec) 162 mg PO DAILY iron 18 mg Tablet 10 mg PO 3XW coenzyme Q10 [CoQ-10] 100 mg Capsule 200 mg PO DAILY ascorbic acid (vitamin C) [Vitamin C] 1,000 mg Tablet 1 g PO 3XW cholecalciferol (vitamin D3) [Vitamin D3] 50 mcg (2,000 unit) Tablet 50 mcg PO 3XW alpha lipoic acid 200 mg Tablet 200 mg PO 3XW hawthorn 250 mg Capsule 100 mg PO DAILY magnesium oxide,aspartate,citr 400 mg magnesium Capsule 400 mg PO 3XW mexiletine 200 mg capsule 200 mg PO BID ranolazine 500 mg tablet extended release 12 hr 500 mg PO BID (DME) blood pressure test kit-medium Kit See Rx Instructions .Route Qty: 1 0RF Rx Instructions: As directed Interventions: ED Discharge Assessment Last Done: 11/08/22 22:57 Discharge Date/Time: 11/08/22 22:58
[2022-11-08 18:42] VITALS: BP 156/86; PULSE 65; RESP 18; TEMP 36.6; O2SAT 99
--- NOTE | 2022-11-08 18:44 | PC.NURSE ---
Alert and oriented, arrived from home reporting that his heart rate has been low over the last few days. Denies chest pain or sob. NSR on monitor, pulse 65. VSS
[2022-11-08 19:07] LABS: Basophils Absolute Auto 0.1 X10*3/uL (0.0-0.2); Basophils Percent Auto 0.6 % (0-2); Eosinophils Absolute Auto 0.2 X10*3/uL (0.0-0.4); Eosinophils Percent Auto 1.6 % (0-4); Hematocrit 39.7 % (42.0-52.0); Hemoglobin 13.5 g/dl (14.0-18.0); Imm Gran Abs Auto 0.01 X10*3/uL (0.00-0.03); Imm Gran Pct Auto 0.1 % (0.0-0.4); Lymphocytes Percent Auto 61.4 % (20-40); MANUAL DIFF FLAG SCAN; Mean Corpuscular Hemoglobin 32.2 pg (27.0-33.0); Mean Corpuscular Volume 94.7 fL (80.0-98.0); Mean Platelet Volume 9.8 fL (9.4-12.4); Monocytes Absolute Auto 0.6 X10*3/uL (0.1-1.2); Monocytes Percent Auto 5.7 % (2-11); Neutrophils Percent Auto 30.6 % (45-73); Platelet Count 153 X10*3/uL (160-400); Red Blood Count 4.19 X10*6/uL (4.60-5.80); Red Cell Distribution Width 12.5 % (11.0-16.0); SCAN SMEAR FLAG 1; White Blood Count 9.8 X10*3/uL (4.8-10.8)
[2022-11-08 19:38] LABS: Troponin-I High Sensitivity < 2.7 ng/L (<3.5-35.0)
[2022-11-08 19:47] LABS: SLIDE REVIEW VERIFIED
[2022-11-08 20:24] LABS: Anion Gap 13 (12-20)
[2022-11-08 20:30] VITALS: BP 150/94; PULSE 63; RESP 17; O2SAT 97
[2022-11-08 20:33] LABS: Alanine Aminotransferase 15 U/L (0-40); Albumin Level 3.9 g/dL (3.5-5.0); Alkaline Phosphatase 41 U/L (39-117); Aspartate Amino Transferase 28 U/L (5-37); Bilirubin Direct 0.1 mg/dL (0.0-0.5); Bilirubin Total 0.6 mg/dL (0.0-1.0); Blood Urea Nitrogen 10 mg/dL (9-16); Carbon Dioxide 22 mmol/L (22-29); Chloride 109 mmol/L (96-108); Estimated Glomerular Filt Rate > 60; Glucose Random 89 mg/dL (60-115); Magnesium 2.3 mg/dL (1.6-2.6); Potassium 4.7 mmol/L (3.3-5.1); Sodium 139 mmol/L (135-145); Total Protein 6.3 g/dL (6.5-8.0)
[2022-11-08 22:57] VITALS: BP 137/85; PULSE 78; RESP 12; O2SAT 98
== END 2022-11-08 22:58 | disposition home or self-care (01) ==
PROVIDERS: Physician Assistant; Emergency Provider Internal Medicine; PCP Physician Assistant
DX: Z03.89 Encounter for observation for other suspected diseases and conditions ruled out (principal); Z95.0 Presence of cardiac pacemaker; I10 Essential (primary) hypertension
CPT/HCPCS: 36415; 71046; 80048; 80076; 83735; 84484; 85025; 93005; 99283; 99284

== ENCOUNTER 2022-11-26 19:14 | Emergency (ER) | payer MEDICARE, OTHER, SELFPAY ==
[2022-11-26 19:37] VITALS: BP 116/73; PULSE 65; RESP 19; TEMP 36.8; O2SAT 97; BMI 25.1
--- NOTE | 2022-11-26 19:38 | ED_ITS ---
HPI - Skin/Abscess/Foreign Bdy General Chief complaint: Wound/Laceration Stated complaint: finger lac Related Data Home Medications Medication Instructions Recorded Confirmed mexiletine 200 mg capsule 200 mg PO BID 03/03/20 11/27/22 ranolazine 500 mg tablet,extended 500 mg PO BID 03/03/20 11/27/22 release,12 hr alpha lipoic acid 200 mg tablet 200 mg PO 3XW 03/04/20 11/27/22 ascorbic acid (vitamin C) 1,000 mg 1 g PO 3XW 03/04/20 11/27/22 tablet (Vitamin C) aspirin 162 mg tablet,delayed 162 mg PO DAILY 03/04/20 11/27/22 release cholecalciferol (vitamin D3) 50 50 mcg PO 3XW 03/04/20 11/27/22 mcg (2,000 unit) tablet (Vitamin D3) coenzyme Q10 100 mg capsule 200 mg PO DAILY 03/04/20 11/27/22 (CoQ-10) ginkgo biloba 120 mg tablet 120 mg PO BID 03/04/20 11/27/22 hawthorn 250 mg capsule 100 mg PO DAILY 03/04/20 11/27/22 iron 18 mg tablet 10 mg PO 3XW 03/04/20 11/27/22 magnesium oxide,aspartate,citr 400 mg PO 3XW 03/04/20 11/27/22 Previous Rx's Medication Instructions Recorded levothyroxine 112 mcg tablet 112 mcg PO QAM #90 tabs 06/29/22 rosuvastatin 20 mg tablet 20 mg PO BEDTIME 90 days #90 tabs 07/08/22 finasteride 5 mg tablet 5 mg PO DAILY #90 tabs 07/19/22 tamsulosin 0.4 mg capsule 0.4 mg PO DAILY #90 caps 09/14/22 blood pressure test kit-medium #1 ea 10/19/22 docusate sodium 100 mg capsule 100 mg PO DAILY 60 days #60 caps 11/02/22 (Colace) lactulose 10 gram/15 mL (15 mL) 10 g (15 mL) PO DAILY PRN laxative 11/02/22 oral solution effect 30 days #600 mL nitroglycerin 0.4 mg sublingual 0.4 mg sublingual Q5M PRN chest 11/14/22 tablet pain 15 days #30 tabs isosorbide mononitrate 30 mg 15 mg PO DAILY 90 days #45 tabs 11/27/22 tablet,extended release 24 hr lisinopril 2.5 mg tablet 2.5 mg PO DAILY #30 tabs 12/02/22 Allergies Allergy/AdvReac Type Severity Reaction Status Date / Time Penicillins [PENICILLINS] Allergy Mild HIVES Verified 11/27/22 14:33 [facility] Past Medical History Medical History CAD (coronary artery disease) CLL (chronic lymphocytic leukemia) Hx of cardiac arrest Hypercholesterolemia Hypothyroidism Skin cancer, basal cell Surgical History History of bilateral knee arthroplasty Hx of colonoscopy Hx of thyroidectomy Family History Family History Mother Breast cancer Father Aneurysm Sister Pancreatic cancer Daughter Thyroid cancer Social History Social History Household Members: Family Housing: House Alcohol intake: current Alcohol intake frequency: a few times a week Alcohol type: beer Patient Tobacco Use Status: Never used Tobacco e-Cigarette/Vaping Use: Never Used Second Hand Smoke Exposure: No service: No Current occupational status: retired Current occupational exposures/hazards: No Cognitive needs: No Hearing needs: Yes Vision needs: Yes Physical Exam Vital Signs: Vital Signs: Last Vital Signs Temp 98.3 F 11/26/22 19:37 Pulse 65 11/26/22 19:37 Resp 19 11/26/22 19:37 BP 116/73 11/26/22 19:37 Pulse Ox 97 11/26/22 19:37 O2 Del Method Room Air 11/26/22 19:37 BMI result Body Mass Index 25.1 Course Course Course Narrative: RME: 77-year-old male with a past medical history of bradycardia, hypertension, hypothyroid, CLL, CAD, presenting to the ED complaining of laceration to left index finger s/p using garden jacob [employer]. Last tetanus unknown [place] laceration noted to left distal index finger, ? Involving under nail. NV intact. Bleeding controlled Will need suture repair Tdap, lidocaine ordered Full HPI, ROS and PE to be performed by primary ED provider. Discharge Plan Discharge Clinical Impression: Laceration of finger Patient Disposition: Elopement Prescriptions: No Action levothyroxine 112 mcg tablet 112 mcg PO QAM Qty: 90 1RF rosuvastatin 20 mg tablet 20 mg PO BEDTIME 90 Days Qty: 90 2RF finasteride 5 mg tablet 5 mg PO DAILY Qty: 90 1RF tamsulosin 0.4 mg capsule 0.4 mg PO DAILY Qty: 90 2RF docusate sodium [Colace] 100 mg capsule 100 mg PO DAILY 60 Days Qty: 60 3RF lactulose 10 gram/15 mL (15 mL) solution 10 g PO DAILY PRN (Reason: laxative effect) 30 Days Qty: 600 3RF nitroglycerin 0.4 mg tablet, sublingual 0.4 mg sublingual Q5M PRN (Reason: chest pain) 15 Days Qty: 30 0RF Rx Instructions: do not exceed 3 doses per episode lisinopril 2.5 mg tablet 2.5 mg PO DAILY Qty: 30 0RF ginkgo biloba 120 mg Tablet 120 mg PO BID aspirin 162 mg Tablet,Delayed Release (Dr/Ec) 162 mg PO DAILY iron 18 mg Tablet 10 mg PO 3XW coenzyme Q10 [CoQ-10] 100 mg Capsule 200 mg PO DAILY ascorbic acid (vitamin C) [Vitamin C] 1,000 mg Tablet 1 g PO 3XW cholecalciferol (vitamin D3) [Vitamin D3] 50 mcg (2,000 unit) Tablet 50 mcg PO 3XW alpha lipoic acid 200 mg Tablet 200 mg PO 3XW hawthorn 250 mg Capsule 100 mg PO DAILY magnesium oxide,aspartate,citr 400 mg magnesium Capsule 400 mg PO 3XW mexiletine 200 mg capsule 200 mg PO BID ranolazine 500 mg tablet extended release 12 hr 500 mg PO BID (DME) blood pressure test kit-medium Kit See Rx Instructions .Route Qty: 1 0RF Rx Instructions: As directed isosorbide mononitrate 30 mg tablet extended release 24 hr 15 mg PO DAILY 90 Days Qty: 45 2RF Interventions: ED Discharge Assessment Last Done: 11/26/22 22:28 Discharge Date/Time: 11/26/22 22:51
== END 2022-11-26 22:51 | disposition left against medical advice (07) ==
LOC: HO.ED 22:34
PROVIDERS: Emergency Provider Emergency Medicine; PCP Physician Assistant
DX: S61.211A Laceration without foreign body of left index finger without damage to nail, initial encounter (principal); R00.1 Bradycardia, unspecified; I25.10 Atherosclerotic heart disease of native coronary artery without angina pectoris; W45.8XXA Other foreign body or object entering through skin, initial encounter; Y93.9 Activity, unspecified; Y92.9 Unspecified place or not applicable; Y99.9 Unspecified external cause status; Z79.899 Other long term (current) drug therapy
CPT/HCPCS: 12001; 99282

== ENCOUNTER 2022-11-27 14:09 | Outpatient (AMB) | payer MEDICARE, OTHER, SELFPAY ==
--- NOTE | 2022-11-27 14:11 | AM.OFFWIN_ITS ---
Intake Vital Signs 11/27/22 14:13 Height 5 ft 7 in BP 110/64 Blood Pressure Location Rt brachial Position Sitting Pulse 66 Pulse Source Pulse Oximeter Temp 98.0 F Temp Source Oral Pulse Oximetry (%) 97 Oxygen Delivery Method Room Air Intake Visit Reasons: EP RT index finger cut, stitches?? Intake Note: pt is here for c/o cut on left index finger, cut with garden clippers Patient Tobacco Use Status: Never used Tobacco Allergies Penicillins [PENICILLINS] Allergy (Mild, Verified 11/27/22 14:33) HIVES Medication List - Last Reconciled 11/27/22 by Eitan Ocampo PA-C alpha lipoic acid 200 mg PO 3XW ascorbic acid (vitamin C) (Vitamin C) 1 g PO 3XW aspirin 162 mg PO DAILY blood pressure test kit-medium As directed cholecalciferol (vitamin D3) (Vitamin D3) 50 mcg PO 3XW coenzyme Q10 (CoQ-10) 200 mg PO DAILY docusate sodium (Colace) 100 mg PO DAILY 60 days finasteride 5 mg PO DAILY ginkgo biloba 120 mg PO BID hawthorn 100 mg PO DAILY iron 10 mg PO 3XW isosorbide mononitrate ER 15 mg (1/2 x 30 mg) PO DAILY 90 days lactulose 10 grams (15 mL) PO DAILY PRN 30 days levothyroxine 112 mcg PO QAM lisinopril 2.5 mg PO DAILY magnesium oxide,aspartate,citr 400 mg PO 3XW mexiletine 200 mg PO BID nitroglycerin 0.4 mg sublingual Q5M PRN 15 days ranolazine ER 500 mg PO BID rosuvastatin 20 mg PO BEDTIME 90 days tamsulosin 0.4 mg PO DAILY Do you need a note to return to daycare/school/sports/work: No HPI EP RT index finger cut, stitches?? HPI Details Patient is a 77-year-old male here today for a laceration of his right index finger. He reports he was doing some gardening and accidentally cut his right index finger. Was seen at the [place] ER though only seen in triage given bandages. Hemorrhaging has been controlled with dry bandages. [facility] Medical History CAD (coronary artery disease) CLL (chronic lymphocytic leukemia) Hx of cardiac arrest Hypercholesterolemia Hypothyroidism Skin cancer, basal cell Surgical History History of bilateral knee arthroplasty Hx of colonoscopy Hx of thyroidectomy Family History Mother Breast cancer Father Aneurysm Sister Pancreatic cancer Daughter Thyroid cancer Social History Household Members: Family Housing: House Alcohol intake: current Alcohol intake frequency: a few times a week Alcohol type: beer Patient Tobacco Use Status: Never used Tobacco e-Cigarette/Vaping Use: Never Used Second Hand Smoke Exposure: No service: No Current occupational status: retired Current occupational exposures/hazards: No Cognitive needs: No Hearing needs: Yes Vision needs: Yes Review of Systems Const Denies headache(s) Eyes Denies loss of vision ENT Denies vertigo, Denies dizziness, Denies headache(s) and Denies sore throat Card Denies chest pain, Denies leg edema and Denies lightheadedness Resp Denies cough, Denies hemoptysis and Denies wheezing GI Denies abdominal pain, Denies melena, Denies constipation, Denies diarrhea and Denies vomiting Denies dysuria, Denies urinary frequency and Denies urinary urgency Musc Denies arthralgias, Denies joint swelling, Denies numbness and Denies tingling Neuro Denies Abnormal speech present, Denies behavioral changes, Denies vertigo, Denies dizziness, Denies headache(s), Denies loss of vision, Denies memory loss, Denies numbness and Denies tingling Psych Denies anxiety, Denies behavioral changes, Denies depression, Denies memory loss and Denies panic attacks Lorenzo/Lymph Denies easy bleeding and Denies easy bruising Aller/Immun Denies wheezing Physical Exam Vital Signs: Last Vital Signs Temp 98.0 F 11/27/22 14:13 Pulse 66 11/27/22 14:13 BP 110/64 11/27/22 14:13 Pulse Ox 97 11/27/22 14:13 Oxygen Delivery Method Room Air 11/27/22 14:13 Const General: healthy appearing, no acute distress, alert and awake Nutritional Appearance: well nourished Orientation/consciousness: oriented to person, oriented to place and oriented to time HEENT Ears: TM's normal bilaterally General nose exam: Normal nasal mucous membranes and turbinates present Eyes Conjunctivae: conjunctivae normal Sclerae: sclerae normal Pupils: Equal, round and reactive pupils present Neck Neck: Yes no lymphadenopathy and Yes no JVD Thyroid: Thyroid normal Carotids: no bruits Resp Effort & Inspection: normal respiratory effort and not tachypneic Auscultation: no crackles, no rales, no rhonchi and no wheezes Cardio Rate: regular rate Rhythm: regular rhythm Heart sounds: no murmurs and normal S1 and S2 GI Palpation (GI): Soft to palpation, nontender, no hepatomegaly and no splenomegaly Auscultation: normal bowel sounds Skin General skin exam: no rashes or lesions noted and dry skin Neuro General: oriented to person, oriented to place and oriented to time Cranial nerves: Yes Equal, round and reactive pupils present Speech: No Abnormal speech present Gait exam (Neuro): Normal gait present Motor exam (neuro): no tremor noted Extrem Right upper extremity: full ROM Left upper extremity: full ROM Hand/finger images: 1. SMALL C-SHAPED LACERATION RIGHT INDEX FINGER, ALREADY WELL APPROXIMATED, NO ACTIVE HEMORRHAGING Right lower extremity: full ROM; no edema Left lower extremity: full ROM; no edema Psych Mental Status: mental status grossly normal Speech and movement: Normal speech and movement present Affect: normal affect Attitude: cooperative Thought process: Normal thought process present Assessment & Plan Assessment & Plan (1) Laceration of right index finger w/o foreign body w/o damage to nail: Code(s): S61.210A - Laceration without foreign body of right index finger without damage to nail, initial encounter Qualifiers: Encounter type: initial encounter Qualified Code(s): S61.210A - Laceration without foreign body of right index finger without damage to nail, initial encounter Plan: Small laceration at the tip of the rightindex finger, wound already approximated and bleeding stopped. No need for sutures at this time. Will use dry bandages and keep injury dry and clean. Already up-to-date with tetanus vaccine Medications: Changed From isosorbide mononitrate ER 30mg 2-3 times/wk, 15mg 4-5 times/wk 15 mg (1/2 x 30 mg) PO DAILY 90 tabs 0RF I25.10 - Atherosclerotic heart disease of [place] coronary artery without angina pectoris To isosorbide mononitrate ER 15 mg (1/2 x 30 mg) PO DAILY 45 tabs 2RF 90 days I25.10 - Atherosclerotic heart disease of [place] coronary artery without angina pectoris Coding Level of Care Code Est Pt Level 3 (44449) Diagnoses Laceration of right index finger w/o foreign body w/o damage to nail S61.210A Encounter type: initial encounter
[2022-11-27 14:13] VITALS: BP 110/64; PULSE 66; TEMP 36.7; O2SAT 97
== END 2022-11-27 14:50 | disposition home or self-care (01) ==
PROVIDERS: PCP Physician Assistant; Visit Provider Physician Assistant
DX: S61.210A Laceration without foreign body of right index finger without damage to nail, initial encounter (principal)
CPT/HCPCS: 99213

== ENCOUNTER 2023-01-18 14:03 | Outpatient (AMB) | payer MEDICARE, OTHER, SELFPAY ==
[2023-01-18 14:04] VITALS: BP 88/58; PULSE 48; O2SAT 95; BMI 25.2
--- NOTE | 2023-01-18 14:04 | A.OFFVIS_ITS ---
Intake Vital Signs 01/18/23 14:04 01/18/23 14:27 Height 5 ft 7 in Weight 161 lb BMI 25.2 BP 88/58 L 98/58 L Blood Pressure Location Lt brachial Lt brachial Position Sitting Sitting Pulse 48 L 62 Pulse Source Pulse Oximeter Palpation Temp Source Skin Pulse Oximetry (%) 95 Oxygen Delivery Method Room Air Intake Visit Reasons: [facility] G0439 Discuss/Bill ACP Intake Note: Patient is here for an Annual Wellness Visit. [place] [employer] Required: No Allergies Penicillins [PENICILLINS] Allergy (Mild, Verified 01/18/23 14:16) HIVES Medication List - Last Reconciled 01/18/23 by AUTUMN Vazquez alpha lipoic acid 200 mg PO 3XW ascorbic acid (vitamin C) (Vitamin C) 1 g PO 3XW aspirin 162 mg PO DAILY blood pressure test kit-medium As directed cholecalciferol (vitamin D3) (Vitamin D3) 50 mcg PO 3XW coenzyme Q10 (CoQ-10) 200 mg PO DAILY docusate sodium (Colace) 100 mg PO DAILY 60 days finasteride 5 mg PO DAILY ginkgo biloba 120 mg PO BID hawthorn 100 mg PO DAILY iron 10 mg PO 3XW isosorbide mononitrate ER 15 mg (1/2 x 30 mg) PO DAILY 90 days lactulose 10 grams (15 mL) PO DAILY PRN 30 days levothyroxine 112 mcg PO QAM lisinopril 2.5 mg PO DAILY magnesium oxide,aspartate,citr 400 mg PO 3XW mexiletine 200 mg PO BID nitroglycerin 0.4 mg sublingual Q5M PRN 15 days ranolazine ER 500 mg PO BID rosuvastatin 20 mg PO BEDTIME 90 days tamsulosin 0.4 mg PO DAILY HPI [facility] G0439 Discuss/Bill ACP HPI Details Patient is a 77-year-old male who presents today for subsequent wellness visit. Patient of RL Ocampo. Patient is up-to-date with his health preventative screenings and immunizations. Colonoscopy 10/[address] Chand - no biopsy records-will request. [place] of care was reviewed with the patient and he was provided with a screening schedule. MOLST form is on file and patient was provided with a healthcare proxy form. [facility] Medical History (Updated 01/18/23 @ 15:43 by AUTUMN Vazquez) CAD (coronary artery disease) CLL (chronic lymphocytic leukemia) Hx of cardiac arrest Hypercholesterolemia Hypothyroidism Laceration of right index finger w/o foreign body w/o damage to nail Medicare annual wellness visit, initial Medicare annual wellness visit, initial Skin cancer, basal cell Surgical History (Updated 01/18/23 @ 15:48 by AUTUMN Vazquez) History of bilateral knee arthroplasty Hx of colonoscopy Hx of thyroidectomy Family History Mother Breast cancer Father Aneurysm Sister Pancreatic cancer Daughter Thyroid cancer Social History Household Members: Family Housing: House Alcohol intake: current Alcohol intake frequency: a few times a week Alcohol type: beer Patient Tobacco Use Status: Never used Tobacco e-Cigarette/Vaping Use: Never Used Second Hand Smoke Exposure: No service: No Current occupational status: retired Current occupational exposures/hazards: No Cognitive needs: No Hearing needs: Yes Vision needs: Yes Questionnaire Medicare Wellness Checkup [age] What gender do you identify with?: male During the past 4 weeks, how much have you been bothered by emotional problems such as feeling anxious, depressed, irritable, sad or downhearted, and blue?: slightly During the past 4 weeks, has your physical & emotional health limited your social activities with family, friends, neighbors, or groups?: not at all During the past 4 weeks, how much bodily pain have you generally had?: no pain During the past 4 weeks, was someone available to help you if you needed & wanted help?: yes, some During the past 4 weeks, what was the hardest physical activity you could do for at least 2 minutes?: moderate Can you get to places out of walking distance without help? (For eg., can you travel alone on buses, taxis or drive your car?): Yes Can you go shopping for groceries or clothes without someone's help?: Yes Can you prepare your own meals?: Yes Can you do your housework without help?: Yes Because of any health problems, do you need the help of another person with your personal care needs such as eating, bathing, dressing or getting around the house?: No Can you handle your own money without help?: Yes During the past 4 weeks, how would you rate your health in general?: very good During the past 4 weeks how have things been going for you?: pretty well Are you having difficulties driving your car?: no Do you always fasten your seat belt when you are in a car?: yes, usually During past 4 weeks, have you been bothered by the following: never: Falling or dizzy when standing up, Sexual problems?, Trouble eating well?, Teeth or denture problems?, Problems using the telephone? and Tiredness or fatigue? Have you fallen 2 or more times in the past year?: Yes Are you afraid of falling?: No Are you a smoker?: no During the past 4 weeks, how many drinks of wine, beer, or other alcoholic beverages did you have?: 2-5 drinks per week Do you exercise for about 20 minutes 3 or more times a week?: yes, most of the time Have you been given information to help with the following?: no: Hazards in your house that might hurt you? and no: Keeping track of your medications? How often do you have trouble taking medicines the way you have been told to take them?: I do not have to take medicine How confident are you that you can control & manage most of your health pr oblems?: very confident What is your race?: White Mini Mental State Exam (MMSE) Orientation What is the (year) (season) (date) (day) (month)?: year, season, date, day and month Score Score: 5 Activity of Daily Living Bathing - sponge bath, tub bath or shower: receives no assistance (gets in/out by self, if usual bathing means Dressing - getting clothes from closets & drawers, including inner/outer garments & fasteners.: gets clothes & gets completely dressed without help Toileting - going to the 'toilet room' for urine/bowel elimination & cleaning self/arranging clothes: goes to toilet room, cleans self, arranges clothes without help Transfer: moves in & out of bed and chair without help (may use support object) Continence: controls urination/bowel movements completely by self Feeding: feeds self without help Total Score: 0 Information obtained from: patient Using telephone: independent Traveling: independent Shopping: independent Preparing meals: independent Housework: independent Taking medicine: independent Managing money: independent PHQ-9 Over the last 2 weeks, how often have you been bothered by any of the following problems? 1. Little interest or pleasure in doing things: not at all 2. Feeling down, depressed, or hopeless: not at all 3. Trouble falling or staying asleep, or sleeping too much: not at all 4. Feeling tired or having little energy: not at all 5. Poor appetite or overeating: not at all 6. Feeling bad about yourself - or that you are a failure or have let yourself or your family down: not at all 7. Trouble concentrating on things, such as reading the newspaper or watching television: not at all 8. Moving or speaking so slowly that other people could have noticed. Or the opposite - being so fidgety or restless that you have been moving around a lot more than usual: several days 9. Thoughts that you would be better off or of hurting yourself in some way: not at all Total score: 1 Depression Screening Interpretation: Negative [id number] - PHQ-9 Billing: Yes Source: Developed by Drs. Ted Davis, Isabella Hill, Mk Rawls and colleagues, with an educational david from [employer]. Physical Exam Vital Signs: Last Vital Signs Pulse 62 01/18/23 14:27 BP 98/58 L 01/18/23 14:27 Pulse Ox 95 01/18/23 14:04 Oxygen Delivery Method Room Air 01/18/23 14:04 BMI result Body Mass Index 25.2 Const General: cooperative and no acute distress Orientation/consciousness: patient oriented x3 HEENT Other: Whisper test: fail Neuro Other: Balance: Normal Get up and walk: unable to [place]berg: negative Tandem gait: unable to General: patient oriented x3 Assessment & Plan Assessment & Plan (1) Medicare annual wellness visit, subsequent: Code(s): Z00.00 - Encounter for general adult medical examination without abnormal findings (2) HTN (hypertension): Code(s): I10 - Essential (primary) hypertension Qualifiers: Hypertension type: essential hypertension Qualified Code(s): I10 - Essential (primary) hypertension Plan: Goal BP equal or less than 140/90 Blood pressure low in the office today, patient denies acute symptoms Patient is to hold lisinopril if systolic blood pressure less than 110 (3) Hypothyroidism: Code(s): E03.9 - Hypothyroidism, unspecified Qualifiers: Hypothyroidism type: unspecified Qualified Code(s): E03.9 - Hypothyroidism, unspecified Plan: Continue levothyroxine (4) CAD (coronary artery disease): Code(s): I25.10 - Atherosclerotic heart disease of [place] coronary artery without angina pectoris Qualifiers: Coronary Disease-Associated Artery/Lesion type: [place] artery [place] vs. transplanted heart: st[place]bins heart Associated angina: with stable angina Qualified Code(s): I25.118 - Atherosclerotic heart disease of [place] coronary artery with other forms of angina pectoris Plan: Continue to follow-up with cardiology (5) BPH (benign prostatic hyperplasia): Code(s): N40.0 - Benign prostatic hyperplasia without lower urinary tract symptoms Qualifiers: Lower urinary tract symptom presence: symptoms absent Qualified Code(s): N40.0 - Benign prostatic hyperplasia without lower urinary tract symptoms Plan: Continue current treatment Continue to follow-up with urology Dr. Hammonds (6) CLL (chronic lymphocytic leukemia): Code(s): C91.10 - Chronic lymphocytic leukemia of B-cell type not having achieved remission Plan: Continue to follow-up with Dr. Wanger (7) Paroxysmal atrial fibrillation: Code(s): I48.0 - Paroxysmal atrial fibrillation Plan: Continue to follow-up with cardiology Quality Reporting (2019) Depression/Bipolar (159/160/161/177) PHQ-9: Total score: 1 Coding Level of Care Code Medicare Subsequent (G0439) Diagnoses Medicare annual wellness visit, subsequent Z00.00 HTN (hypertension) I10 Hypertension type: essential hypertension Hypothyroidism E03.9 Hypothyroidism type: unspecified CAD (coronary artery disease) I25.118 Coronary Disease-Associated Artery/Lesion type: [place] artery [place] vs. 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
[2023-01-18 14:27] VITALS: BP 98/58; PULSE 62
== END 2023-01-18 14:35 | disposition home or self-care (01) ==
PROVIDERS: PCP Physician Assistant; Visit Provider Nurse Practitioner Family
DX: Z00.00 Encounter for general adult medical examination without abnormal findings (principal); I10 Essential (primary) hypertension; E03.9 Hypothyroidism, unspecified; I25.118 Atherosclerotic heart disease of native coronary artery with other forms of angina pectoris; C91.10 Chronic lymphocytic leukemia of B-cell type not having achieved remission; I48.0 Paroxysmal atrial fibrillation; N40.0 Benign prostatic hyperplasia without lower urinary tract symptoms
CPT/HCPCS: 1123F; G0439

== ENCOUNTER 2023-05-23 14:16 | Outpatient (AMB) | payer MEDICARE, OTHER, SELFPAY ==
[2023-05-23 14:17] VITALS: BP 98/58; PULSE 62; RESP 17; BMI 26.5
--- NOTE | 2023-05-23 14:17 | A.OFFPC_ITS ---
Vital Signs 05/23/23 14:17 05/23/23 14:52 Height 5 ft 7 in Weight 169 lb 6 oz BMI 26.5 BP 98/58 L 90/60 Blood Pressure Location Lt brachial Position Sitting Respiration 17 Pulse 62 Pulse Source Palpation Intake Visit Reasons: HTN Erp Engineer Required: No Accompanied by: Self / Same As Patient Allergies Penicillins [PENICILLINS] Allergy (Mild, Verified 05/23/23 14:45) HIVES Medication List - Last Reconciled 05/23/23 by Eitan Ocampo PA-C alpha lipoic acid 200 mg PO 3XW ascorbic acid (vitamin C) (Vitamin C) 1 g PO 3XW aspirin 162 mg PO DAILY blood pressure test kit-medium As directed cholecalciferol (vitamin D3) (Vitamin D3) 50 mcg PO 3XW coenzyme Q10 (CoQ-10) 200 mg PO DAILY docusate sodium (Colace) 100 mg PO ONCE PRN finasteride 5 mg PO DAILY ginkgo biloba 120 mg PO BID haw[place]orn 100 mg PO DAILY iron 10 mg PO 3XW isosorbide mononitrate ER 15 mg (1/2 x 30 mg) PO DAILY 90 days lactulose 10 grams (15 mL) PO DAILY PRN 30 days levothyroxine 112 mcg PO QAM lisinopril 2.5 mg PO DAILY magnesium oxide,aspartate,citr 400 mg PO 3XW mexiletine 200 mg PO BID nitroglycerin 0.4 mg sublingual Q5M PRN 15 days ranolazine ER 500 mg PO BID rosuvastatin 20 mg PO BEDTIME 90 days tamsulosin 0.4 mg PO DAILY vitamin B complex ER (Complex B-100 tablet,extended release) 1 tab PO DAILY Tobacco use date assessed: 10/19/22 Fall risk assessment: No Falls in past year Last assessed Fall Risk: 05/23/23 Dental Screening Dental Screen Date: 05/23/23 Did you have a dental visit in the last 12 months?: Yes Did you have a dental problem in the last 6 months where you did not have access to dental care?: No Was dental information given to patient?: Patient has dentist HPI HTN HPI Details Mckinley is a 78 year-old male here today for a follow-up visit. Patient's past medical history significant for hypertension, coronary artery disease, hyperlipidemia, chronic lymphocytic leukemia. ?concerns--> blood pressure- reports that home blood pressures have been 110s to 120 systolic. Today in office blood pressures running low 90/60. Fortunately patient asymptomatic without any dizziness, presyncopal episodes ect.. PLAN: Will hold lisinopril 2.5 mg. Will have patient back for nurse visit to evaluate blood pressure with his home cuff ? .. ? Chronic medical conditions--> ?? Lukemia : IS followed by hematology.has been dx with CLL and will be followed by Oncology. He had some concerns about weight loss the reports his diet has changed since his daughter has left his home whom usually grouped elaborate meals. ? ... ? CAD -patient recently seen his solutions architect consultant Dr. Chin.? Most recent lipid panel much improved and LDL at optimal goal.? He reports most recent visit with his solutions architect consultant recommendations have been made for nuclear stress test. He is apprehensive on any nuclear test and still considering. Laboratory Tests 03/14/23 11:49 Hgb 13.2 L PFSH Medical History Laceration of right index finger w/o foreign body w/o damage to nail Medicare annual wellness visit, initial Medicare annual wellness visit, initial Skin cancer, basal cell Hypothyroidism Hypercholesterolemia Hx of cardiac arrest CAD (coronary artery disease) CLL (chronic lymphocytic leukemia) Surgical History Hx of colonoscopy History of bilateral knee arthroplasty Hx of thyroidectomy Family History Mother Breast cancer Father Aneurysm Sister Pancreatic cancer Daughter Thyroid cancer Social History Household Members: Family Housing: House Alcohol intake: current Alcohol intake frequency: a few times a week Alcohol type: beer Patient Tobacco Use Status: Never used Tobacco e-Cigarette/Vaping Use: Never Used Second Hand Smoke Exposure: No service: No Current occupational status: retired Current occupational exposures/hazards: No Cognitive needs: No Hearing needs: Yes Vision needs: Yes Questionnaire PHQ-9 Over the last 2 weeks, how often have you been bothered by any of the following problems? 1. Little interest or pleasure in doing things: not at all 2. Feeling down, depressed, or hopeless: not at all 3. Trouble falling or staying asleep, or sleeping too much: not at all 4. Feeling tired or having little energy: not at all 5. Poor appetite or overeating: not at all 6. Feeling bad about yourself - or that you are a failure or have let yourself or your family down: not at all 7. Trouble concentrating on things, such as reading the newspaper or watching television: not at all 8. Moving or speaking so slowly that other people could have noticed. Or the opposite - being so fidgety or restless that you have been moving around a lot more than usual: not at all 9. Thoughts that you would be better off or of hurting yourself in some way: not at all Total score: 0 Depression Screening Interpretation: Negative Depression Screening Done: Yes 81335 - PHQ-9 Billing: Yes Source: Developed by Drs. Ted Davis, Isabella Hill, Mk Rawls and colleagues, with an educational david from [employer]. Thrive Questionnaire Date Thrive assessed: 05/23/23 I am a: Patient What is your living situation today?: I have a steady place to live Within the past 12 months, did the food you bought not last and you didn't have the money to get more?: Never true Within the past 12 months, did you worry whether your food would run out before you got money to buy more?: Never true Do you have trouble paying for medicines?: No Do you have trouble getting transportation to medical appointments?: No Do you have trouble paying your heating and electricity bill?: No Do you have trouble taking care of your child, family member or friend?: No Do you have trouble with day-to-day activities such as bathing, preparing meals, shopping, managing finances, etc.?: No Are you currently unemployed and looking for a job?: No Are you interested in more education?: No Please select the resources that you would like help with: None Currently or been in a relationship where the following occur: no concerns repor ann AUDIT C Alcohol Use Questionnaire (AUDIT-C) 1. How often do you have a drink containing alcohol?: Never 3. How often do you have six or more drinks on one occasion?: Never Total Score: 0 KANNAN-7 AMB Questionnaire KANNAN-7 Date KANNAN - 7 assessed: 05/23/23 Feeling nervous, anxious, or on edge: 0 = Not at all Not being able to stop or control worryin = Not at all Worrying too much about different things: 0 = Not at all Trouble relaxin = Not at all Being so restless that it is hard to sit still: 0 = Not at all Becoming easily annoyed or irritable: 0 = Not at all Feeling afraid as if something awful might happen: 0 = Not at all Total KANNAN-7 score (0-4 normal; 5-9 mild; 10-14 moderate; 15-21 severe): 0 Source: Developed by Drs. Ted Davis, Isabella Hill, Mk Rawls and colleagues, with an educational david from [employer]. KANNAN-7 Assessment Billing KANNAN-7 Assessment Tool: KANNAN-7 Assessment 55768 Review of Systems Const Denies headache(s) Eyes Denies loss of vision ENT Denies vertigo, Denies dizziness, Denies headache(s) and Denies sore throat Card Denies chest pain, Denies leg edema and Denies lightheadedness Resp Denies cough, Denies hemoptysis and Denies wheezing GI Denies abdominal pain, Denies melena, Denies constipation, Denies diarrhea and Denies vomiting Denies dysuria, Denies urinary frequency and Denies urinary urgency Musc Denies arthralgias, Denies joint swelling, Denies numbness and Denies tingling Neuro Denies Abnormal speech present, Denies behavioral changes, Denies vertigo, Denies dizziness, Denies headache(s), Denies loss of vision, Denies memory loss, Denies numbness and Denies tingling Psych Denies anxiety, Denies behavioral changes, Denies depression, Denies memory loss and Denies panic attacks Lorenzo/Lymph Denies easy bleeding and Denies easy bruising Aller/Immun Denies wheezing Physical exam (Primary Care) Vital Signs: Last Vital Signs Pulse 62 05/23/23 14:17 Resp 17 05/23/23 14:17 BP 90/60 05/23/23 14:52 BMI result Body Mass Index 26.5 Tobacco/Smoking Status: Tobacco use Status Tobacco use date assessed 10/19/22 05/23/23 14:18 Patient Tobacco Use Status Never used Tobacco 05/23/23 14:18 e-Cigarette/Vaping Use Never Used 05/23/23 14:18 PHQ-9: PHQ-9 Score PHQ-9: Total score 0 05/23/23 14:44 Depression Screening Interpretation: Negative Thrive Assessment: Date of Thrive Assessment Date Thrive assessed 05/23/23 05/23/23 14:18 Currently or been in a relationship where the following occur: no concerns reported Const General: healthy appearing, no acute distress, alert and awake Nutritional Appearance: well nourished Orientation/consciousness: oriented to person, oriented to place and oriented to time HENMT Ears: TM's normal bilaterally General nose exam: Normal nasal mucous membranes and turbinates present Eyes Conjunctivae: conjunctivae normal Sclerae: sclerae normal Pupils: Equal, round and reactive pupils present Neck Neck: Yes no lymphadenopathy and Yes no JVD Thyroid: Thyroid normal Carotids: no bruits Resp Effort & Inspection: normal respiratory effort and not tachypneic Auscultation: no crackles, no rales, no rhonchi and no wheezes Cardio Rate: regular rate Rhythm: regular rhythm Heart sounds: no murmurs and normal S1 and S2 GI Palpation (GI): Soft to palpation, nontender, no hepatomegaly and no splenomegaly Auscultation: normal bowel sounds Skin General skin exam: no rashes or lesions noted and dry skin Neuro General: oriented to person, oriented to place and oriented to time Cranial nerves: Yes Equal, round and reactive pupils present Speech: No Abnormal speech present Gait exam (Neuro): Normal gait present Motor exam (neuro): no tremor noted Extrem Right upper extremity: full ROM Left upper extremity: full ROM Right lower extremity: full ROM; no edema Left lower extremity: full ROM; no edema Psych Mental Status: mental status grossly normal Speech and movement: Normal speech and movement present Affect: normal affect Attitude: cooperative Thought process: Normal thought process present Assessment and Plan Assessment & Plan (1) HTN (hypertension): Code(s): I10 - Essential (primary) hypertension Qualifiers: Hypertension type: essential hypertension Qualified Code(s): I10 - Essential (primary) hypertension Plan: Blood pressure low today in office. Will hold his lisinopril 2.5 for now and continue monitoring blood pressure at home. Will have him back in the office to do nurse visit to evaluate blood pressure with his home cuff. goal blood pressure to be below 140/90 (2) CAD (coronary artery disease): Code(s): I25.10 - Atherosclerotic heart disease of [place] coronary artery without angina pectoris Qualifiers: Associated angina: with stable angina Coronary Disease-Associated Artery/Lesion type: [place] artery [place] vs. transplanted heart: [place] heart Qualified Code(s): I25.118 - Atherosclerotic heart disease of [place] coronary artery with other forms of angina pectoris Plan: Followed by Cardiology. Patient continues on statin therapy without reported side effect. Continues on aspirin therapy. Goal LDL to be optimally below 70 (3) Paroxysmal atrial fibrillation: Code(s): I48.0 - Paroxysmal atrial fibrillation Plan: Noted to have paroxysmal AFib in the past. Patient followed by Cardiology. Currently in normal sinus rhythm. Patient continues on aspirin. (4) CLL (chronic lymphocytic leukemia): Code(s): C91.10 - Chronic lymphocytic leukemia of B-cell type not having achieved remission Plan: Patient followed by Hematology. CLL Currently under surveillance. Orders: Orders Lipid Panel 05/23/23 I25.118 - Atherosclerotic heart disease of [place] coronary artery with other forms of angina pectoris Comprehensive [place]. Panel Fast 05/23/23 I10 - Essential (primary) hypertension Prostate Specific Antigen Scr 05/23/23 I10 - Essential (primary) hypertension, Z12.5 - Encounter for screening for malignant neoplasm of prostate Microalbumin, Random (w Creat) 05/23/23 I10 - Essential (primary) hypertension Complete Blood Count no Diff 05/23/23 C91.10 - Chronic lymphocytic leukemia of B-cell type not having achieved remission Medications: Changed From docusate sodium (Colace) 100 mg PO DAILY 60 days 60 caps 3RF K59.00 - Constipation, unspecified To docusate sodium (Colace) 100 mg PO ONCE PRN K59.00 - Constipation, unspecified Refilled isosorbide mononitrate ER 15 mg (1/2 x 30 mg) PO DAILY 90 days 45 tabs 2RF I25.10 - Atherosclerotic heart disease of [place] coronary artery without angina pectoris On Hold lisinopril Hold Comment: Doctor's Order 2.5 mg PO DAILY 30 tabs 6RF I10 - Essential (primary) hypertension Coding Level of Care Code Est Pt Level 4 (36862) Diagnoses Essential hypertension I10 Hypertension type: essential hypertension Coronary artery disease of [place] artery [place] heart with stable angina pectoris I25.118 Associated angina: with stable angina Coronary Disease-Associated Artery/Lesion type: [place] artery [place] vs. transplanted heart: [place] heart Paroxysmal atrial fibrillation I48.0 CLL (chronic lymphocytic leukemia) C91.10 Additional Codes KANNAN-7 Assessment Billing - KANNAN-7 Assessment Tool: KANNAN-7 Assessment 51304 ([id number])
[2023-05-23 14:52] VITALS: BP 90/60
== END 2023-05-23 15:06 | disposition home or self-care (01) ==
PROVIDERS: PCP Physician Assistant; Visit Provider Physician Assistant
DX: I10 Essential (primary) hypertension (principal); I25.118 Atherosclerotic heart disease of native coronary artery with other forms of angina pectoris; I48.0 Paroxysmal atrial fibrillation; C91.10 Chronic lymphocytic leukemia of B-cell type not having achieved remission
CPT/HCPCS: 99214

== ENCOUNTER 2023-06-15 11:50 | Outpatient (AMB) | payer MEDICARE, OTHER, SELFPAY ==
[2023-06-15 12:30] VITALS: BP 120/74; PULSE 72; TEMP 36.3; O2SAT 98; BMI 26.8
--- NOTE | 2023-06-15 12:30 | MHC.OFFWIV ---
Intake Vital Signs 06/15/23 12:30 Height 5 ft 7 in Weight 171 lb BMI 26.8 BP 120/74 Blood Pressure Location Rt brachial Position Sitting Pulse 72 Pulse Source Pulse Oximeter Temp 97.4 F Temp Source Temporal Artery Scan Pulse Oximetry (%) 98 Oxygen Delivery Method Room Air Intake Visit Reasons: EP LFT arm scrape not healing Intake Note: Pt is here c/o left arm scrape 16 days ago. Pt states it has not healed. Patient Tobacco Use Status: Never used Tobacco Allergies Penicillins [PENICILLINS] Allergy (Mild, Verified 06/15/23 12:31) HIVES Do you need a note to return to daycare/school/sports/work: No HPI HPI Comments History of Present Illness Details This is a 78-year-old male with a past medical history of BPH and coronary artery disease presenting for evaluation of a nonhealing wound on his left upper extremity. Patient states that 16 days ago when he had COVID-19 he felt weak and fell on his carpet. Patient denies any head injury or loss of consciousness but states that he had a laceration to his left upper extremity. Patient has kept it clean with soap and water and use antibiotic ointment daily. Patient has not used anything over the past 2 days and is concerned that he may have diabetes because the lesion has not healed completely. Patient denies having any history of hyperglycemia and denies any polyuria or polydipsia. [facility] Medical History Laceration of right index finger w/o foreign body w/o damage to nail Medicare annual wellness visit, initial Medicare annual wellness visit, initial Skin cancer, basal cell Hypothyroidism Hypercholesterolemia Hx of cardiac arrest CAD (coronary artery disease) CLL (chronic lymphocytic leukemia) Surgical History Hx of colonoscopy History of bilateral knee arthroplasty Hx of thyroidectomy Family History Mother Breast cancer Father Aneurysm Sister Pancreatic cancer Daughter Thyroid cancer Social History Household Members: Family Housing: House Alcohol intake: current Alcohol intake frequency: a few times a week Alcohol type: beer Patient Tobacco Use Status: Never used Tobacco e-Cigarette/Vaping Use: Never Used Second Hand Smoke Exposure: No service: No Current occupational status: retired Current occupational exposures/hazards: No Cognitive needs: No Hearing needs: Yes Vision needs: Yes Review of Systems Const All systems reviewed & are unremarkable except as noted in HPI and below Reports no additional complaints Eyes Reports no additional complaints ENT Reports no additional complaints Card Reports no additional complaints Resp Reports no additional complaints Skin/Breast Reports system reviewed and no additional complaints, except as documented, Reports change in pigmentation and Reports wounds Psych Reports no additional complaints Physical Exam Vital Signs: Last Vital Signs Temp 97.4 F 06/15/23 12:30 Pulse 72 06/15/23 12:30 BP 120/74 06/15/23 12:30 Pulse Ox 98 06/15/23 12:30 Oxygen Delivery Method Room Air 06/15/23 12:30 BMI result Body Mass Index 26.8 Const General: cooperative, healthy appearing, comfortable, no acute distress and well developed Nutritional Appearance: average body habitus Orientation/consciousness: patient oriented x3 Limitations: no limitations Skin Other: there is a 2.5cm x 1.5cm abrasion located on the distal humerus, radial aspect. Lesion is erythematous with epitheliazation, no surrounding erythema or tenderness, no drainage and no evidence of a secondary cellulitis. Neuro General: patient oriented x3 Psych Appearance: grossly normal Mental Status: mental status grossly normal Insight: Good insight present (Psych) Judgement: Good judgement present (Psych) Results Reviewed Results Reviewed: Glucose 101 Assessment & Plan Assessment & Plan (1) Abrasion of arm, left: Comment: No evidence of a secondary cellulitis upon examination and blood glucose is 101; patient is reassured and instructed to keep the patient clean with soap and water daily. Code(s): S40.812A - Abrasion of left upper arm, initial encounter Qualifiers: Encounter type: initial encounter Qualified Code(s): S40.812A - Abrasion of left upper arm, initial encounter Plan: Soap and water daily; no need to keep bandaged any longer. Lesion is healing well. Coding Level of Care Code Est Pt Level 3 (93062) Diagnoses Abrasion of left upper extremity, initial encounter S40.812A Encounter type: initial encounter Time Spent (min) 20
== END 2023-06-15 13:18 | disposition home or self-care (01) ==
PROVIDERS: PCP Physician Assistant; Visit Provider Physician Assistant
DX: S40.812A Abrasion of left upper arm, initial encounter (principal)
CPT/HCPCS: 99213

== ENCOUNTER 2023-07-17 10:25 | Emergency (ER) | payer MEDICARE, OTHER, SELFPAY ==
[2023-07-17 10:36] VITALS: BP 100/61; BP 73/49; PULSE 64; PULSE 65; RESP 16; TEMP 36.6; O2SAT 98; BMI 27.4
--- NOTE | 2023-07-17 10:38 | ECG_ITS ---
Test Reason : DIZINESS Blood Pressure : / mmHG Vent. Rate : 065 BPM Atrial Rate : 065 BPM P-R Int : 256 ms QRS Dur : 108 ms QT Int : 448 ms P-R-T Axes : 065 -29 090 degrees QTc Int : 465 ms Atrial-paced rhythm with prolonged AV conduction Inferior infarct , age undetermined Abnormal ECG When compared with ECG of 08-NOV-2022 18:45, No significant change was found Referred By: Micki Sen Electronically Signed By:Juan M Galvez
[2023-07-17 10:48] LABS: MANUAL DIFF FLAG NO
--- NOTE | 2023-07-17 10:50 | ED_ITS ---
HPI - Dizziness General Chief Complaint: Dizziness Stated Complaint: BLURRY VISION DIZZY HX PACEMAKER Time Seen by Provider: 07/17/23 10:37 Source: patient Mode of arrival: EMS History of Present Illness HPI Narrative: 78-year-old male is brought in by EMS from [facility] and states that he was in the middle of singing when he began experiencing visual changes of thickening snow flakes and denies any associated diaphoresis/being cold/nausea/shortness of breath or chest pain. He did not fall and instead sat down and was concerned and took a nitroglycerin. Patient denies any further symptoms at this time and states that he feels better but also reports that he had bilateral lower extremity cramping last night that completely resolved. Related Data Home Medications Medication Instructions Recorded Confirmed mexiletine 200 mg capsule 200 mg PO BID 03/03/20 05/23/23 ranolazine 500 mg tablet,extended 500 mg PO BID 03/03/20 05/23/23 release,12 hr alpha lipoic acid 200 mg tablet 200 mg PO 3XW 03/04/20 05/23/23 ascorbic acid (vitamin C) 1,000 mg 1 g PO 3XW 03/04/20 05/23/23 tablet (Vitamin C) aspirin 162 mg tablet,delayed 162 mg PO DAILY 03/04/20 05/23/23 release cholecalciferol (vitamin D3) 50 50 mcg PO 3XW 03/04/20 05/23/23 mcg (2,000 unit) tablet (Vitamin D3) coenzyme Q10 100 mg capsule 200 mg PO DAILY 03/04/20 05/23/23 (CoQ-10) ginkgo biloba 120 mg tablet 120 mg PO BID 03/04/20 05/23/23 hawthorn 250 mg capsule 100 mg PO DAILY 03/04/20 05/23/23 iron 18 mg tablet 10 mg PO 3XW 03/04/20 05/23/23 magnesium oxide,aspartate,citr 400 mg PO 3XW 03/04/20 05/23/23 docusate sodium 100 mg capsule 100 mg PO ONCE PRN 05/23/23 05/23/23 (Colace) vitamin B complex (Complex B-100 1 tab PO DAILY 05/23/23 05/23/23 tablet,extended release) Previous Rx's Medication Instructions Recorded levothyroxine 112 mcg tablet 112 mcg PO QAM #90 tabs 06/29/22 nitroglycerin 0.4 mg sublingual 0.4 mg sublingual Q5M PRN chest 11/14/22 tablet pain 15 days #30 tabs finasteride 5 mg tablet 5 mg PO DAILY #90 tabs 02/23/23 lisinopril 2.5 mg tablet 2.5 mg PO DAILY #30 tabs 02/23/23 rosuvastatin 20 mg tablet 20 mg PO BEDTIME 90 days #90 tabs 02/23/23 blood pressure test kit-medium #1 ea 04/18/23 lactulose 10 gram/15 mL (15 mL) 10 g (15 mL) PO DAILY PRN laxative 04/29/23 oral solution effect 30 days #600 mL isosorbide mononitrate 30 mg 15 mg (1/2 x 30 mg) PO DAILY 90 05/23/23 tablet,extended release 24 hr days #45 tabs tamsulosin 0.4 mg capsule 0.4 mg PO DAILY #90 caps 06/01/23 Allergies Allergy/AdvReac Type Severity Reaction Status Date / Time Penicillins [PENICILLINS] Allergy Mild HIVES Verified 07/17/23 10:35 Review of Systems 2 Review of Systems: Pertinent positives and negatives as stated in the HPI [facility] Past Medical History Source: nursing notes reviewed Medical History Laceration of right index finger w/o foreign body w/o damage to nail Medicare annual wellness visit, initial Medicare annual wellness visit, initial Skin cancer, basal cell Hypothyroidism Hypercholesterolemia Hx of cardiac arrest CAD (coronary artery disease) CLL (chronic lymphocytic leukemia) Surgical History Hx of colonoscopy History of bilateral knee arthroplasty Hx of thyroidectomy Family History Family History Mother Breast cancer Father Aneurysm Sister Pancreatic cancer Daughter Thyroid cancer Social History Social History Household Members: Family Housing: House Alcohol intake: current Alcohol intake frequency: a few times a week Alcohol type: beer Patient Tobacco Use Status: Never used Tobacco Smoked in Last 30 Days: No e-Cigarette/Vaping Use: Never Used Second Hand Smoke Exposure: No Use of substances other than those prescribed or required for medical reasons: No Advance Directives: Yes Advance Directives Information Provided: No Advance Directives on File: No service: No Current occupational status: retired Current occupational exposures/hazards: No Cognitive needs: No Hearing needs: Yes Vision needs: Yes Physical Exam 2 Vital Signs: Vital Signs: Last Vital Signs Temp 97.8 F 07/17/23 11:34 Pulse 65 07/17/23 11:34 Resp 14 07/17/23 11:34 BP 96/57 L 07/17/23 11:34 Pulse Ox 100 07/17/23 11:34 O2 Del Method Room Air 07/17/23 11:34 BMI result Body Mass Index 27.4 VITAL SIGNS: Reviewed. GENERAL: Well developed, well nourished, in no acute distress. HEAD: Normocephalic/atraumatic EYES: PERRLA, EOMI EARS: Ext canals without abnormality NOSE: Nares patent bilateral OROPHARYNX: no oral lesions noted, posterior pharynx clear NECK: Supple, no adenopathy LUNGS: Normal breath sounds. No adventitious sounds or accessory muscle use. SpO2<98> CARDIOVASCULAR: Regular rate and rhythm without noted murmurs, no JVD or lower extremity edema. ABDOMEN: Soft, non-tender, non-distended with bowel sounds. MUSCULOSKELETAL: No tenderness, deformities, or effusions noted on gross inspection. EXTREMITIES: No cyanosis, clubbing or edema. SKIN: Inspection of the skin reveals no rashes NEUROLOGIC: Alert and oriented x 4. Strength and sensation to light touch were grossly intact x 4, no facial asymmetry, no pronator drift, cranial nerves 2-12 are grossly intact. Medical Decision Making Medical Decision Making MDM Narrative: 78-year-old male with history and clinical presentation most consistent with vasovagal near syncope and then took nitro which dropped his pressure, blood pressure is stable at this time and patient is otherwise asymptomatic. Will proceed with lab work/EKG, patient is not on chronic anticoagulation and has no focal deficits at this time. I reviewed all investigations and hematologic indices demonstrate and non infectious leukocytosis without left shift, there is a stable normocytic anemia and no thrombocytopenia. PT slightly elevated otherwise INR is within normal limits. Chemistry indices do not demonstrate an GLEN or electrolyte/liver enzyme derangements. Serial troponins are detectable but not elevated and there are no acute EKG changes and patient has no complaints of chest pain. Urinalysis negative for UTI. My interpretation is that patient experienced a vasovagal near syncope potentially secondary to singing without taking deep breaths as is his usual practice. 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 He is otherwise asymptomatic for chest pain and will be discharged to home with instructions to follow-up with his primary care doctor.. Differential Diagnosis Differential Diagnoses: The differential diagnosis associated with the presentation includes Please see the discussion above Admission/Observation Consideration of admission/observation: Escalation of care including admission/observation considered Please see the discussion above Lab Data MDM Lab Attestation statement: I reviewed the patient's lab results. Please see the discussion above 07/17/23 10:44 07/17/23 10:44 Labs: Lab Results 07/17/23 07/17/23 07/17/23 Range/Units 10:44 11:51 12:07 WBC 11.4 H (4.8-10.8) X10*3/uL RBC 3.77 L (4.60-5.80) X10*6/uL Hgb 12.2 L (14.0-18.0) g/dl Hct 35.6 L (42.0-52.0) % MCV 94.4 (80.0-98.0) fL MCH 32.4 (27.0-33.0) pg MCHC 34.3 (31.0-36.0) g/dl RDW 13.1 (11.0-16.0) % Plt Count 164 (160-400) X10*3/uL MPV 9.6 (9.4-12.4) fL Immature Gran % (Auto) 0.3 (0.0-0.4) % Neut % (Auto) 62.4 (45-73) % Lymph % (Auto) 28.9 (20-40) % [place] % (Auto) 7.1 (2-11) % Eos % (Auto) 1.0 (0-4) % Baso % (Auto) 0.3 (0-2) % Lymph # (Auto) 3.3 (1.2-4.9) X10*3/uL [place] # (Auto) 0.8 (0.1-1.2) X10*3/uL Eos # (Auto) 0.1 (0.0-0.4) X10*3/uL Baso # (Auto) 0.0 (0.0-0.2) X10*3/uL Abs Immat Gran (auto) 0.03 (0.00-0.03) X10*3/uL Absolute Neuts (auto) 7.2 (2.0-8.3) x10*3/uL Absolute Nucleated RBC 0.000 (0.0-0.012) X10*3/uL Nucleated RBC % (auto) 0.0 (0.0-0.2) /100WBC PT 13.7 H (11.1-13.3) SEC INR 1.1 (0.9-1.1) Sodium 137 (135-145) mmol/L Potassium 4.1 (3.3-5.1) mmol/L Chloride 107 (96-108) mmol/L Carbon Dioxide 24 (22-29) mmol/L Anion Gap 10 L (12-20) BUN 21 H (9-16) mg/dL Creatinine 0.86 (0.5-1.4) mg/dL Estim Creat Clear Calc 70.3 Estimated GFR > 60 Random Glucose 104 (60-115) mg/dL Calcium 8.8 (8.4-10.2) mg/dL Total Bilirubin 0.6 (0.0-1.0) mg/dL AST 27 (5-37) U/L ALT 20 (0-40) U/L Alkaline Phosphatase 47 (39-117) U/L Troponin I High Sens 7.6 D 6.8 (<3.5-35.0) ng/L Total Protein 5.9 L (6.5-8.0) g/dL Albumin 3.7 (3.5-5.0) g/dL Urine Color Yellow Urine Appearance Turbid Urine pH 8.5 (5.0-9.0) Ur Specific [place] 1.020 (1.005-1.025) Urine Protein Trace (Neg-Trace) mg/dL Urine Glucose (UA) Negative (Negative) mg/dL Urine Ketones Trace (Negative) mg/dL Urine Blood Negative (Negative) Urine Nitrite Negative (Negative) Ur Leukocyte Esterase Small (1+) H (Negative) Urine RBC 0-2 (0-2) /HPF Urine WBC 6-10 H (0-5) /HPF Ur Squamous Epith Cells 0-2 (0-2) /HPF Other Crystals Present Urine Bacteria None Seen (None Seen) Hyaline Casts 3-5 (0-2) /LPF Independent Interpretation I performed an independent interpretation of an: EKG Interpretation: Atrial paced rhythm, HR-65, no STEMI, HI is prolonged at baseline, QRS and QTC are also chronically stable and consistent with patient's underlying rhythm. There are no acute changes when compared to prior on 11/08/2022. External Record Review External record reviewed: Outpatient record and Prior outpatient labs Chronic Conditions Patient?s care impacted by: Hypertension Critical Care Time Critical Care Time Critical Care Time: Yes Total Critical Care Time: 45 Attestation: I personally attest to this time spent taking care of the patient. Discharge Plan Discharge Clinical Impression: Vasovagal near syncope, Medication side effects Patient Disposition: Home, Self-Care Instructions: Near Syncope (ED) Additional Instructions: 1. Resume all home medications as prescribed. There are no findings to better explain the muscle cramps you were having in your legs last night. 2. Recommend that you follow-up with your primary care doctor by calling the office in the morning to set up an appointment for re-evaluation and further outpatient management. 3. Recommend that you follow-up with an eye doctor to evaluate for any visual source for the symptoms that you experienced. Do not take any nitroglycerin pills unless you are having active chest pain or know your blood pressure. This can be very dangerous if you use this medication outside of those parameters. I recommend that you not take any other blood pressure medications for the day. Return to the ER if you experience any worsening or recurrence of symptoms. Prescriptions: No Action levothyroxine 112 mcg tablet 112 mcg PO QAM Qty: 90 1RF nitroglycerin 0.4 mg tablet, sublingual 0.4 mg sublingual Q5M PRN (Reason: chest pain) 15 Days Qty: 30 0RF Rx Instructions: do not exceed 3 doses per episode lisinopril 2.5 mg tablet 2.5 mg PO DAILY Qty: 30 6RF Hold Instructions: Doctor's Order finasteride 5 mg tablet 5 mg PO DAILY Qty: 90 2RF rosuvastatin 20 mg tablet 20 mg PO BEDTIME 90 Days Qty: 90 2RF (DME) blood pressure test kit-medium Kit See Rx Instructions .Route Qty: 1 0RF Rx Instructions: As directed lactulose 10 gram/15 mL (15 mL) solution 10 g PO DAILY PRN (Reason: laxative effect) 30 Days Qty: 600 3RF tamsulosin 0.4 mg capsule 0.4 mg PO DAILY Qty: 90 2RF ginkgo biloba 120 mg Tablet 120 mg PO BID aspirin 162 mg Tablet,Delayed Release (Dr/Ec) 162 mg PO DAILY iron 18 mg Tablet 10 mg PO 3XW coenzyme Q10 [CoQ-10] 100 mg Capsule 200 mg PO DAILY ascorbic acid (vitamin C) [Vitamin C] 1,000 mg Tablet 1 g PO 3XW cholecalciferol (vitamin D3) [Vitamin D3] 50 mcg (2,000 unit) Tablet 50 mcg PO 3XW alpha lipoic acid 200 mg Tablet 200 mg PO 3XW hawthorn 250 mg Capsule 100 mg PO DAILY magnesium oxide,aspartate,citr 400 mg magnesium Capsule 400 mg PO 3XW mexiletine 200 mg capsule 200 mg PO BID ranolazine 500 mg tablet extended release 12 hr 500 mg PO BID docusate sodium [Colace] 100 mg capsule 100 mg PO ONCE PRN Complex B-100 Tablet Extended Release 1 tab PO DAILY isosorbide mononitrate 30 mg tablet extended release 24 hr 15 mg PO DAILY 90 Days Qty: 45 2RF Referrals: Eitan Ocampo PA-C [Primary Care Provider] -
--- NOTE | 2023-07-17 10:51 | PC.NURSE ---
a&ox4. vss and up to date. nsr on the court monitor w/ pacemaker spikes displayed. pt presents to the ED after episode of feeling like he was going to pass out at [employer]. pt verbalizes he participates in choir and was singing a note when he had a sudden onset of extreme dizziness/lightheadedness. pt also verbalizing change in vision - states that it feels like he is looking into a snowstorm. pt states all sx have subsided at this time. despite pt not complaining of chest pain - pt took sublingual nitroglycerin prior to EMS arrival. pt hypotensive upon EMS arrival. 18gIV placed in the left AC by EMS - pt received about 300ml of NS bolus. pt remains hypotensive on ED arrival but BP continues to increase at this time. labs obtained/sent to lab. no sob/wob noted. respirations even and unlabored. plan of care ongoing. call murray placed within reach.
[2023-07-17 10:53] LABS: Basophils Percent Auto 0.3 % (0-2); Eosinophils Absolute Auto 0.1 X10*3/uL (0.0-0.4); Hematocrit 35.6 % (42.0-52.0); Hemoglobin 12.2 g/dl (14.0-18.0); Imm Gran Abs Auto 0.03 X10*3/uL (0.00-0.03); Imm Gran Pct Auto 0.3 % (0.0-0.4); Lymphocytes Absolute Auto 3.3 X10*3/uL (1.2-4.9); Lymphocytes Percent Auto 28.9 % (20-40); Mean Corpuscular HGB Conc 34.3 g/dl (31.0-36.0); Mean Corpuscular Hemoglobin 32.4 pg (27.0-33.0); Mean Corpuscular Volume 94.4 fL (80.0-98.0); Mean Platelet Volume 9.6 fL (9.4-12.4); Monocytes Absolute Auto 0.8 X10*3/uL (0.1-1.2); Monocytes Percent Auto 7.1 % (2-11); Neutrophils Absolute Auto 7.2 x10*3/uL (2.0-8.3); Neutrophils Percent Auto 62.4 % (45-73); Platelet Count 164 X10*3/uL (160-400); Red Blood Count 3.77 X10*6/uL (4.60-5.80); Red Cell Distribution Width 13.1 % (11.0-16.0); White Blood Count 11.4 X10*3/uL (4.8-10.8)
[2023-07-17 10:58] LABS: INTERNATIONAL NORM RATIO 1.1 (0.9-1.1); Prothrombin Time 13.7 SEC (11.1-13.3)
[2023-07-17 11:04] LABS: Alanine Aminotransferase 20 U/L (0-40); Albumin Level 3.7 g/dL (3.5-5.0); Alkaline Phosphatase 47 U/L (39-117); Anion Gap 10 (12-20); Aspartate Amino Transferase 27 U/L (5-37); Bilirubin Total 0.6 mg/dL (0.0-1.0); Blood Urea Nitrogen 21 mg/dL (9-16); Calcium 8.8 mg/dL (8.4-10.2); Carbon Dioxide 24 mmol/L (22-29); Chloride 107 mmol/L (96-108); Creatinine Clr Calc Pharmacy 70.3; Estimated Glomerular Filt Rate > 60; Glucose Random 104 mg/dL (60-115); Potassium 4.1 mmol/L (3.3-5.1); Sodium 137 mmol/L (135-145); Total Protein 5.9 g/dL (6.5-8.0)
[2023-07-17 11:11] LABS: Troponin-I High Sensitivity 7.6 ng/L (<3.5-35.0)
[2023-07-17 11:34] VITALS: BP 96/57; PULSE 65; RESP 14; TEMP 36.6; O2SAT 100
--- NOTE | 2023-07-17 12:08 | PC.NURSE ---
urine obtained/sent to lab.
[2023-07-17 12:19] LABS: Appearance Urine Turbid; Color Urine Yellow; Glucose Urine UA Negative (Negative); Leukocyte Esterase Urine Small (1+) (Negative); Nitrite Urine Negative (Negative); PH 8.5 (5.0-9.0); UMIC TRIGGER UACC YES; Urine Blood Negative (Negative); Urine Ketones Trace mg/dL (Negative); Urine Protein Trace mg/dL (Neg-Trace)
[2023-07-17 12:19] LABS: Troponin-I High Sensitivity 6.8 ng/L (<3.5-35.0)
[2023-07-17 12:33] LABS: Bacteria Urine None Seen (None Seen); Other Crystals Urine Present; RBC Urine 0-2 /HPF (0-2); Squamous Epithelial Cell Urine 0-2 /HPF (0-2); UACC Culture Trigger YES
[2023-07-17 13:08] VITALS: BP 125/64; PULSE 65; RESP 19; TEMP 37.1; O2SAT 98
== END 2023-07-17 13:35 | disposition home or self-care (01) ==
PROVIDERS: Emergency Provider Student in an Organized Health Care Education/Training Program; PCP Physician Assistant
DX: R55 Syncope and collapse (principal); R42 Dizziness and giddiness; H53.8 Other visual disturbances; R94.31 Abnormal electrocardiogram [ECG] [EKG]; Z79.899 Other long term (current) drug therapy
CPT/HCPCS: 36415; 80053; 81001; 84484; 85025; 85610; 87086; 93005; 99284; 99285

== ENCOUNTER → 2023-07-17 10:38 | Outpatient (BNV) | payer MEDICARE, OTHER, SELFPAY | PROVIDERS: Emergency Provider Student in an Organized Health Care Education/Training Program; PCP Physician Assistant; Visit Provider Internal Medicine Cardiovascular Disease | DX: R94.31 Abnormal electrocardiogram [ECG] [EKG] (principal) | CPT/HCPCS: 93010 ==

== ENCOUNTER 2023-11-17 15:46 | Emergency (ER) | payer MEDICARE, OTHER, SELFPAY ==
[2023-11-17 15:55] VITALS: BP 134/87; BP 138/79; PULSE 65; PULSE 75; RESP 18; TEMP 36.5; O2SAT 95; O2SAT 99; BMI 26.1
--- NOTE | 2023-11-17 15:55 | ECG_ITS ---
Test Reason : ARRHYTMIA Blood Pressure : / mmHG Vent. Rate : 065 BPM Atrial Rate : 065 BPM P-R Int : 242 ms QRS Dur : 112 ms QT Int : 424 ms P-R-T Axes : 000 -12 108 degrees QTc Int : 440 ms Atrial-paced rhythm with prolonged AV conduction Inferior infarct (cited on or before 17-JUL-2023) Abnormal ECG When compared with ECG of 17-JUL-2023 10:58, No significant change was found Referred By: Chioma Zaragoza Electronically Signed By:ROSA SAUCEDA
--- NOTE | 2023-11-17 16:03 | ED.GENADULT ---
HPI - General Adult General Chief complaint: General Medical Stated complaint: issues with his pacemaker Time Seen by Provider: 11/17/23 15:54 History of Present Illness ED Provider: Dr. Zaragoza HPI narrative: 78 y/o M patient; PMH hypothyroidism, HLD, hx cardiac arrest with [employer] pacemaker, CAD, CLL; presents from home reporting symptomatic defibrillator firing immediately prior to arrival. The patient states he was sitting at rest opening mail when the defibrillator fired. Immediately before it fired he experienced a near syncopal episode in which he felt his pulse was irregular and fast. He laid down on the ground and then his defibrillator fired. After his defibrillator fired he felt in a normal state of health again. Otherwise he does note that he has recently not been taking his Ranolazine as he forgot it on a 7 day trip to [place]. He otherwise denies: fever or chills, SOB, cough/congestion, chest pain, nausea/vomiting, diarrhea, abdominal pain. Related Data Home Medications ?Medication ?Instructions ?Recorded ?Confirmed mexiletine 200 mg capsule 200 mg PO BID 03/03/20 09/13/23 ranolazine 500 mg tablet,extended 500 mg PO BID 03/03/20 09/13/23 release,12 hr alpha lipoic acid 200 mg tablet 200 mg PO 3XW 03/04/20 09/13/23 ascorbic acid (vitamin C) 1,000 mg 1 g PO 3XW 03/04/20 09/13/23 tablet (Vitamin C) aspirin 162 mg tablet,delayed 162 mg PO DAILY 03/04/20 09/13/23 release cholecalciferol (vitamin D3) 50 50 mcg PO 3XW 03/04/20 09/13/23 mcg (2,000 unit) tablet (Vitamin D3) coenzyme Q10 100 mg capsule 200 mg PO DAILY 03/04/20 09/13/23 (CoQ-10) ginkgo biloba 120 mg tablet 120 mg PO BID 03/04/20 09/13/23 hawthorn 250 mg capsule 100 mg PO DAILY 03/04/20 09/13/23 iron 18 mg tablet 10 mg PO 3XW 03/04/20 09/13/23 magnesium aspart,citrate,oxide 400 mg PO 3XW 03/04/20 09/13/23 docusate sodium 100 mg capsule 100 mg PO ONCE PRN prn 05/23/23 09/13/23 (Colace) vitamin B complex (Complex B-100 1 tab PO DAILY 05/23/23 09/13/23 tablet,extended release) Previous Rx's ?Medication ?Instructions ?Recorded finasteride 5 mg tablet 5 mg PO DAILY #90 tabs 02/23/23 rosuvastatin 20 mg tablet 20 mg PO BEDTIME 90 days #90 tabs 02/23/23 blood pressure test kit-medium #1 ea 04/18/23 lactulose 10 gram/15 mL (15 mL) 10 g (15 mL) PO DAILY PRN laxative 04/29/23 oral solution effect 30 days #600 mL isosorbide mononitrate 30 mg 15 mg (1/2 x 30 mg) PO DAILY 90 05/23/23 tablet,extended release 24 hr days #45 tabs tamsulosin 0.4 mg capsule 0.4 mg PO DAILY #90 caps 06/01/23 levothyroxine 112 mcg tablet 112 mcg PO QAM #90 tabs 07/17/23 nitroglycerin 0.4 mg sublingual 0.4 mg sublingual Q5M PRN chest 07/23/23 tablet pain 15 days #30 tabs Allergies Allergy/AdvReac Type Severity Reaction Status Date / Time Penicillins [PENICILLINS] Allergy Mild HIVES Verified 11/17/23 15:58 Review of Systems Review of Systems: Yes all other systems are reviewed and are negative Neurologic: Denies Sensory deficit (Neuro) [facility] Past Medical History Attestation statement: The following information was validated with the patient. Source: old records reviewed Medical History Laceration of right index finger w/o foreign body w/o damage to nail Medicare annual wellness visit, initial Medicare annual wellness visit, initial Skin cancer, basal cell Hypothyroidism Hypercholesterolemia Hx of cardiac arrest CAD (coronary artery disease) CLL (chronic lymphocytic leukemia) Surgical History Hx of colonoscopy History of bilateral knee arthroplasty Hx of thyroidectomy Family History Family History Mother Breast cancer Father Aneurysm Sister Pancreatic cancer Daughter Thyroid cancer Social History Social History Household Members: Family Housing: House Alcohol intake: current Alcohol intake frequency: a few times a week Alcohol type: beer Patient Tobacco Use Status: Never used Tobacco Smoked in Last 30 Days: No e-Cigarette/Vaping Use: Never Used Second Hand Smoke Exposure: No Use of substances other than those prescribed or required for medical reasons: No Advance Directives: No Advance Directives Information Provided: No Do you have a plan to hurt others: No Plan service: No Current occupational status: retired Current occupational exposures/hazards: No Cognitive needs: No Hearing needs: Yes Vision needs: Yes Physical Exam ED Vital Signs: Vital Signs - 24 hr 11/17/23 15:55 11/17/23 16:07 11/17/23 17:51 Temperature 97.7 F Pulse Rate 65 67 Respiratory Rate 18 18 18 Blood Pressure 138/79 139/89 Pulse Oximetry 95 98 Oxygen Delivery Method Room Air Room Air 11/17/23 18:18 Temperature Pulse Rate 70 Respiratory Rate 16 Blood Pressure 137/81 Pulse Oximetry 98 Oxygen Delivery Method Room Air BMI result Body Mass Index 26.1 Patient is afebrile and hemodynamically stable Const General: cooperative and no acute distress Orientation/consciousness: patient oriented x3 HENMT Head: Yes normal to inspection and Yes atraumatic Eyes General: appearance normal, both eyes and all related structures Pupils: Equal, round and reactive pupils present EOM: EOMs intact bilaterally Neck Neck: Yes normal visual inspection, Yes full ROM, Yes supple and No tender Chest Chest palpation & inspection: normal inspection of the chest and normal palpation of entire chest wall Resp Effort & Inspection: normal respiratory effort, able to speak in complete sentences, no cough and no respiratory distress Auscultation: clear to auscultation bilaterally Cardio Rate: regular rate Rhythm: regular rhythm Peripheral pulses: Peripheral pulses 2+ throughout GI Inspection: Yes normal to inspection, No Abdominal wall edema and No distended Palpation (GI): Soft to palpation, not firm, nontender, no guarding and not rigid Auscultation: normal bowel sounds General: Yes no CVA tenderness Back/Spine/Pelvis Back: no CVA tenderness Neuro General: patient oriented x3 Cranial nerves: Yes Equal, round and reactive pupils present Motor exam (neuro): 5/5 motor strength present throughout Sensory Exam: No Sensory deficit (Neuro) Course Course Course Narrative: Patient is afebrile and hemodynamically stable. EKG with atrial paced 65BPM [employer] device interrogated. Notes one episode of accelerated ventricular arrhythmia episode at 181BPM. Shocked at 41J. Ordered cardiac laboratory studies. Initial troponin 6.8, repeat troponin pending. Remainder of labs unremarkable other than baseline mild anemia. Repeat troponin 22.7. 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 Return precautions given Condition: Stable Medical Decision Making Lab Data 11/17/23 16:41 11/17/23 16:41 Labs: Lab Results 11/17/23 11/17/23 Range/Units 16:41 18:48 WBC 8.1 (4.8-10.8) X10*3/uL RBC 3.85 L (4.60-5.80) X10*6/uL Hgb 12.5 L (14.0-18.0) g/dl Hct 36.1 L (42.0-52.0) % MCV 93.8 (80.0-98.0) fL MCH 32.5 (27.0-33.0) pg MCHC 34.6 (31.0-36.0) g/dl RDW 13.0 (11.0-16.0) % Plt Count 143 L (160-400) X10*3/uL MPV 9.5 (9.4-12.4) fL Immature Gran % (Auto) 0.1 (0.0-0.4) % Neut % (Auto) 40.8 L (45-73) % Lymph % (Auto) 48.0 H (20-40) % [place] % (Auto) 8.6 (2-11) % Eos % (Auto) 2.0 (0-4) % Baso % (Auto) 0.5 (0-2) % Lymph # (Auto) 3.9 (1.2-4.9) X10*3/uL [place] # (Auto) 0.7 (0.1-1.2) X10*3/uL Eos # (Auto) 0.2 (0.0-0.4) X10*3/uL Baso # (Auto) 0.0 (0.0-0.2) X10*3/uL Abs Immat Gran (auto) 0.01 (0.00-0.03) X10*3/uL Absolute Neuts (auto) 3.3 (2.0-8.3) x10*3/uL Absolute Nucleated RBC 0.000 (0.0-0.012) X10*3/uL Nucleated RBC % (auto) 0.0 (0.0-0.2) /100WBC Sodium 142 (135-145) mmol/L Potassium 3.8 (3.3-5.1) mmol/L Chloride 109 H (96-108) mmol/L Carbon Dioxide 28 (22-29) mmol/L Anion Gap 9 L (12-20) BUN 16 (9-16) mg/dL Creatinine 0.83 (0.5-1.4) mg/dL Estim Creat Clear Calc 67.4 Estimated GFR > 60 Random Glucose 106 (60-115) mg/dL Calcium 9.3 (8.4-10.2) mg/dL Magnesium 2.4 (1.6-2.6) mg/dL Total Bilirubin 0.5 (0.0-1.0) mg/dL Direct Bilirubin 0.3 (0.0-0.5) mg/dL AST 22 (5-37) U/L ALT 18 (0-40) U/L Alkaline Phosphatase 46 (39-117) U/L Troponin I High Sens 7.7 22.7 D (<3.5-35.0) ng/L Total Protein 5.7 L (6.5-8.0) g/dL Albumin 3.8 (3.5-5.0) g/dL Discharge Plan Discharge Clinical Impression: Ventricular tachycardia, Defibrillator discharge Patient Disposition: Home, Self-Care Instructions: Implantable Cardioverter Defibrillator (DC), Tachycardia (ED) Additional Instructions: As we discussed, you were seen today for an episode of ventricular tachycardia which caused your defibrillator to fire. Your work up in the emergency department was reassuring. Your heart enzymes were within normal limits. We spoke with your Animal Cop, please call them tomorrow 11/18/2023 to schedule an appointment to follow up in their office. Return immediately to the emergency department for: Any further firing of your pacemaker/defibrillator Chest pain Difficulty breathing Passing out Prescriptions: No Action finasteride 5 mg tablet 5 mg PO DAILY Qty: 90 2RF rosuvastatin 20 mg tablet 20 mg PO BEDTIME 90 Days Qty: 90 2RF (DME) blood pressure test kit-medium Kit See Rx Instructions .Route Qty: 1 0RF Rx Instructions: As directed lactulose 10 gram/15 mL (15 mL) solution 10 g PO DAILY PRN (Reason: laxative effect) 30 Days Qty: 600 3RF tamsulosin 0.4 mg capsule 0.4 mg PO DAILY Qty: 90 2RF levothyroxine 112 mcg tablet 112 mcg PO QAM Qty: 90 1RF nitroglycerin 0.4 mg tablet, sublingual 0.4 mg sublingual Q5M PRN (Reason: chest pain) 15 Days Qty: 30 0RF Rx Instructions: do not exceed 3 doses per episode ginkgo biloba 120 mg Tablet 120 mg PO BID aspirin 162 mg Tablet,Delayed Release (Dr/Ec) 162 mg PO DAILY iron 18 mg Tablet 10 mg PO 3XW coenzyme Q10 [CoQ-10] 100 mg Capsule 200 mg PO DAILY ascorbic acid (vitamin C) [Vitamin C] 1,000 mg Tablet 1 g PO 3XW cholecalciferol (vitamin D3) [Vitamin D3] 50 mcg (2,000 unit) Tablet 50 mcg PO 3XW alpha lipoic acid 200 mg Tablet 200 mg PO 3XW [place] 250 mg Capsule 100 mg PO DAILY magnesium aspart,citrate,oxide 400 mg magnesium Capsule 400 mg PO 3XW mexiletine 200 mg capsule 200 mg PO BID ranolazine 500 mg tablet extended release 12 hr 500 mg PO BID docusate sodium [Colace] 100 mg capsule 100 mg PO ONCE PRN (Reason: prn) Complex B-100 Tablet Extended Release 1 tab PO DAILY isosorbide mononitrate 30 mg tablet extended release 24 hr 15 mg PO DAILY 90 Days Qty: 45 2RF Print Language: Green[place]ic
[2023-11-17 16:07] VITALS: RESP 18
--- NOTE | 2023-11-17 16:09 | PC.NURSE ---
pt is alert and oriented, skin pwd, respirations even and unlabored, ls clear, pt states that while siting down opening his mail his defibrillate fired off x1, currently denies pain/sob, no swelling in the lower extremities, pt thisnks that maybe it might have gone off because for about one we while he was in [place] forgot to bring his cardiac medication with him. vs stable and ns on the monitor
--- NOTE | 2023-11-17 16:30 | PC.NURSE ---
provider at bedside to integrate the defibrillator
[2023-11-17 16:45] LABS: MANUAL DIFF FLAG NO
[2023-11-17 16:49] LABS: Basophils Percent Auto 0.5 % (0-2); Eosinophils Absolute Auto 0.2 X10*3/uL (0.0-0.4); Hematocrit 36.1 % (42.0-52.0); Hemoglobin 12.5 g/dl (14.0-18.0); Imm Gran Abs Auto 0.01 X10*3/uL (0.00-0.03); Imm Gran Pct Auto 0.1 % (0.0-0.4); Lymphocytes Absolute Auto 3.9 X10*3/uL (1.2-4.9); Mean Corpuscular HGB Conc 34.6 g/dl (31.0-36.0); Mean Corpuscular Hemoglobin 32.5 pg (27.0-33.0); Mean Corpuscular Volume 93.8 fL (80.0-98.0); Mean Platelet Volume 9.5 fL (9.4-12.4); Monocytes Absolute Auto 0.7 X10*3/uL (0.1-1.2); Monocytes Percent Auto 8.6 % (2-11); Neutrophils Absolute Auto 3.3 x10*3/uL (2.0-8.3); Neutrophils Percent Auto 40.8 % (45-73); Platelet Count 143 X10*3/uL (160-400); Red Blood Count 3.85 X10*6/uL (4.60-5.80); White Blood Count 8.1 X10*3/uL (4.8-10.8)
[2023-11-17 17:03] LABS: Alanine Aminotransferase 18 U/L (0-40); Albumin Level 3.8 g/dL (3.5-5.0); Alkaline Phosphatase 46 U/L (39-117); Anion Gap 9 (12-20); Aspartate Amino Transferase 22 U/L (5-37); Bilirubin Direct 0.3 mg/dL (0.0-0.5); Bilirubin Total 0.5 mg/dL (0.0-1.0); Blood Urea Nitrogen 16 mg/dL (9-16); Calcium 9.3 mg/dL (8.4-10.2); Carbon Dioxide 28 mmol/L (22-29); Chloride 109 mmol/L (96-108); Creatinine Clr Calc Pharmacy 67.4; Estimated Glomerular Filt Rate > 60; Glucose Random 106 mg/dL (60-115); Magnesium 2.4 mg/dL (1.6-2.6); Potassium 3.8 mmol/L (3.3-5.1); Sodium 142 mmol/L (135-145); Total Protein 5.7 g/dL (6.5-8.0)
[2023-11-17 17:10] LABS: Troponin-I High Sensitivity 7.7 ng/L (<3.5-35.0)
[2023-11-17 17:51] VITALS: BP 139/89; PULSE 67; RESP 18; O2SAT 98
[2023-11-17 18:18] VITALS: BP 137/81; PULSE 70; RESP 16; O2SAT 98
[2023-11-17 19:19] LABS: Troponin-I High Sensitivity 22.7 ng/L (<3.5-35.0)
[2023-11-17 20:00] VITALS: BP 125/77; PULSE 67; RESP 16; O2SAT 100
[2023-11-17 20:18] VITALS: BP 125/77; PULSE 67; RESP 16; TEMP 36.8; O2SAT 100
== END 2023-11-17 20:19 | disposition home or self-care (01) ==
PROVIDERS: Emergency Provider Emergency Medicine; PCP Physician Assistant
DX: I47.20 Ventricular tachycardia, unspecified (principal); I49.9 Cardiac arrhythmia, unspecified; Z79.899 Other long term (current) drug therapy
CPT/HCPCS: 36415; 80048; 80076; 83735; 84484; 85025; 93005; 99283; 99284

== ENCOUNTER → 2023-11-17 15:55 | Outpatient (BNV) | payer MEDICARE, OTHER, SELFPAY | PROVIDERS: Emergency Provider Emergency Medicine; PCP Physician Assistant; Visit Provider Internal Medicine | DX: R94.31 Abnormal electrocardiogram [ECG] [EKG] (principal) | CPT/HCPCS: 93010 ==

== ENCOUNTER 2023-12-05 11:13 | Outpatient (AMB) | payer MEDICARE, OTHER, SELFPAY ==
--- NOTE | 2023-12-05 11:19 | MHC.PC.OV ---
Vital Signs 12/05/23 11:22 Height 5 ft 7 in Weight 163 lb BMI 25.5 BP 114/66 Blood Pressure Location Lt brachial Position Sitting Pulse 67 Pulse Source Pulse Oximeter Pulse Oximetry (%) 97 Oxygen Delivery Method Room Air Intake Visit Reasons: 6 month f/u Time Broker Required: No Accompanied by: Self / Same As Patient Allergies Penicillins [PENICILLINS] Allergy (Mild, Verified 12/05/23 11:37) HIVES Medication List - Last Reconciled 12/05/23 by RL Morrissey-Manuela alpha lipoic acid 200 mg PO 3XW ascorbic acid (vitamin C) (Vitamin C) 1 g PO 3XW aspirin 162 mg PO DAILY blood pressure test kit-medium As directed cholecalciferol (vitamin D3) (Vitamin D3) 50 mcg PO 3XW coenzyme Q10 (CoQ-10) 200 mg PO DAILY docusate sodium (Colace) 100 mg PO ONCE PRN finasteride 5 mg PO DAILY ginkgo biloba 120 mg PO BID hawthorn 100 mg PO DAILY iron 10 mg PO 3XW isosorbide mononitrate ER 15 mg (1/2 x 30 mg) PO DAILY 90 days lactulose 10 grams (15 mL) PO DAILY PRN 30 days levothyroxine 112 mcg PO QAM magnesium aspart,citrate,oxide 400 mg PO 3XW mexiletine 200 mg PO BID nitroglycerin 0.4 mg sublingual Q5M PRN 15 days ranolazine ER 500 mg PO BID rosuvastatin 20 mg PO BEDTIME 90 days tamsulosin 0.4 mg PO DAILY vitamin B complex ER (Complex B-100 tablet,extended release) 1 tab PO DAILY Tobacco use date assessed: 12/05/23 Fall risk assessment: No Falls in past year Last assessed Fall Risk: 12/05/23 Dental Screening Dental Screen Date: 05/23/23 HPI 6 month f/u HPI Details Mckinley is a 78 year-old male here today for a follow-up visit. Patient's past medical history significant for hypertension, coronary artery disease, history of Vfib cardiac arrest, hyperlipidemia, chronic lymphocytic leukemia. ?concerns--> recently vacationing in [place] and got his cardiac meds namely his ranolazine... Unfortunate a had a D fib discharge episode and was evaluated at the ER. Has no urgent cardiology re-evaluate. Will place referral ? .. ? Chronic medical conditions--> ?? Lukemia : Is followed by hematology.has been dx with CLL and will be followed by Oncology. He had some concerns about weight loss the reports his diet has changed since his daughter has left his home whom usually grouped elaborate meals. ? ... ? CAD -patient recently seen his excavator operator Dr. Mckeon (rancho and david) ? Most recent lipid panel acceptable. He reports most recent visit with his excavator operator recommendations have been made for nuclear stress test. He is apprehensive on any nuclear test and still considering. Laboratory Tests 11/17/23 11/17/23 16:41 18:48 Hgb 12.5 L Troponin I High Se ns 7.7 22.7 D PFSH Medical History Laceration of right index finger w/o foreign body w/o damage to nail Medicare annual wellness visit, initial Medicare annual wellness visit, initial Skin cancer, basal cell Hypothyroidism Hypercholesterolemia Hx of cardiac arrest CAD (coronary artery disease) CLL (chronic lymphocytic leukemia) Surgical History Hx of colonoscopy History of bilateral knee arthroplasty Hx of thyroidectomy Family History Mother Breast cancer Father Aneurysm Sister Pancreatic cancer Daughter Thyroid cancer Social History Household Members: Family Housing: House Alcohol intake: current Alcohol intake frequency: a few times a week Alcohol type: beer Patient Tobacco Use Status: Never used Tobacco e-Cigarette/Vaping Use: Never Used Second Hand Smoke Exposure: No service: No Current occupational status: retired Current occupational exposures/hazards: No Cognitive needs: No Hearing needs: Yes Vision needs: Yes Questionnaire Thrive Questionnaire Date Thrive assessed: 05/23/23 KANNAN-7 AMB Questionnaire KANNAN-7 Date KANNAN - 7 assessed: 05/23/23 Source: Developed by Drs. Ted Davis, Isabella Hill, Mk Rawls and colleagues, with an educational david from [employer]. Review of Systems Const Denies headache(s) Eyes Denies loss of vision ENT Denies vertigo, Denies dizziness, Denies headache(s) and Denies sore throat Card Denies chest pain, Denies leg edema and Denies lightheadedness Resp Denies cough, Denies hemoptysis and Denies wheezing GI Denies abdominal pain, Denies melena, Denies constipation, Denies diarrhea and Denies vomiting Denies dysuria, Denies urinary frequency and Denies urinary urgency Musc Denies arthralgias, Denies joint swelling, Denies numbness and Denies tingling Neuro Denies Abnormal speech present, Denies behavioral changes, Denies vertigo, Denies dizziness, Denies headache(s), Denies loss of vision, Denies memory loss, Denies numbness and Denies tingling Psych Denies anxiety, Denies behavioral changes, Denies depression, Denies memory loss and Denies panic attacks Lorenzo/Lymph Denies easy bleeding and Denies easy bruising Aller/Immun Denies wheezing Physical exam (Primary Care) Vital Signs: Last Vital Signs Pulse 67 12/05/23 11:22 BP 114/66 12/05/23 11:22 Pulse Ox 97 12/05/23 11:22 Oxygen Delivery Method Room Air 12/05/23 11:22 BMI result Body Mass Index 25.5 Tobacco/Smoking Status: Tobacco use Status Tobacco use date assessed 12/05/23 12/05/23 11:23 Patient Tobacco Use Status Never used Tobacco 12/05/23 11:21 e-Cigarette/Vaping Use Never Used 12/05/23 11:21 Thrive Assessment: Date of Thrive Assessment Date Thrive assessed 05/23/23 12/05/23 11:21 Const General: healthy appearing, no acute distress, alert and awake Nutritional Appearance: well nourished Orientation/consciousness: oriented to person, oriented to place and oriented to time HENMT Ears: TM's normal bilaterally General nose exam: Normal nasal mucous membranes and turbinates present Eyes Conjunctivae: conjunctivae normal Sclerae: sclerae normal Pupils: Equal, round and reactive pupils present Neck Neck: Yes no lymphadenopathy and Yes no JVD Thyroid: Thyroid normal Carotids: no bruits Resp Effort & Inspection: normal respiratory effort and not tachypneic Auscultation: no crackles, no rales, no rhonchi and no wheezes Cardio Rate: regular rate Rhythm: regular rhythm Heart sounds: no murmurs and normal S1 and S2 GI Palpation (GI): Soft to palpation, nontender, no hepatomegaly and no splenomegaly Auscultation: normal bowel sounds Skin General skin exam: no rashes or lesions noted and dry skin Neuro General: oriented to person, oriented to place and oriented to time Cranial nerves: Yes Equal, round and reactive pupils present Speech: No Abnormal speech present Gait exam (Neuro): Normal gait present Motor exam (neuro): no tremor noted Extrem Right upper extremity: full ROM Left upper extremity: full ROM Right lower extremity: full ROM; no edema Left lower extremity: full ROM; no edema Psych Mental Status: mental status grossly normal Speech and movement: Normal speech and movement present Affect: normal affect Attitude: cooperative Thought process: Normal thought process present Assessment and Plan Assessment & Plan (1) HTN (hypertension): Code(s): I10 - Essential (primary) hypertension Qualifiers: Hypertension type: essential hypertension Qualified Code(s): I10 - Essential (primary) hypertension Plan: Blood pressure acceptable today in office. Not further using lisinopril. Will continue to follow blood pressure with goal blood pressure to remain below 140/90 and above 100/60. (2) CAD (coronary artery disease): Code(s): I25.10 - Atherosclerotic heart disease of [place] coronary artery without angina pectoris Qualifiers: Associated angina: with stable angina Coronary Disease-Associated Artery/Lesion type: [place] artery [place] vs. transplanted heart: [place] heart Qualified Code(s): I25.118 - Atherosclerotic heart disease of [place] coronary artery with other forms of angina pectoris Plan: Followed by Cardiology. Patient continues on statin therapy without reported side effect. Continues on aspirin therapy. Goal LDL to be optimally below 70 (3) Paroxysmal atrial fibrillation: Code(s): I48.0 - Paroxysmal atrial fibrillation Plan: Noted to have paroxysmal AFib in the past. Patient followed by Cardiology. Patient continues on aspirin. (4) CLL (chronic lymphocytic leukemia): Code(s): C91.10 - Chronic lymphocytic leukemia of B-cell type not having achieved remission Plan: Patient followed by Hematology. CLL Currently under surveillance. (5) Defibrillator discharge: Code(s): Z45.02 - Encounter for adjustment and management of automatic implantable cardiac defibrillator Plan: Recent if discharge in the setting of being out of his cardiac medication . will try to get him back set up with Cardiology. He reports currently feeling well though is concerned about any damage that the D fib shock has done on his heart. Orders: Orders TSH reflex Free T4 Today E03.9 - Hypothyroidism, unspecified Referrals Cardiology Referral Z45.02 - Encounter for adjustment and management of automatic implantable cardiac defibrillator Coding Level of Care Code Est Pt Level 4 (25515) Diagnoses Essential hypertension I10 Hypertension type: essential hypertension Coronary artery disease of [place] artery of [place] heart with stable angina pectoris I25.118 Associated angina: with stable angina Coronary Disease-Associated Artery/Lesion type: [place] artery [place] vs. transplanted heart: [place] heart Paroxysmal atrial fibrillation I48.0 CLL (chronic lymphocytic leukemia) C91.10 Defibrillator discharge Z45.02
[2023-12-05 11:22] VITALS: BP 114/66; PULSE 67; O2SAT 97; BMI 25.5
== END 2023-12-05 11:55 | disposition home or self-care (01) ==
PROVIDERS: PCP Physician Assistant; Visit Provider Physician Assistant
DX: I10 Essential (primary) hypertension (principal); I25.118 Atherosclerotic heart disease of native coronary artery with other forms of angina pectoris; I48.0 Paroxysmal atrial fibrillation; C91.10 Chronic lymphocytic leukemia of B-cell type not having achieved remission; Z45.02 Encounter for adjustment and management of automatic implantable cardiac defibrillator
CPT/HCPCS: 99214

== ENCOUNTER 2023-12-07 11:20 | Outpatient (REF) | payer MEDICARE, OTHER, SELFPAY ==
[2023-12-07 12:13] LABS: Hematocrit 39.7 % (42.0-52.0); Hemoglobin 13.2 g/dl (14.0-18.0); Mean Corpuscular HGB Conc 33.2 g/dl (31.0-36.0); Mean Corpuscular Volume 96.1 fL (80.0-98.0); Mean Platelet Volume 9.8 fL (9.4-12.4); Platelet Count 159 X10*3/uL (160-400); Red Blood Count 4.13 X10*6/uL (4.60-5.80); White Blood Count 8.2 X10*3/uL (4.8-10.8)
[2023-12-07 13:29] LABS: Alanine Aminotransferase 16 U/L (0-40); Alkaline Phosphatase 50 U/L (39-117); Anion Gap 12 (12-20); Aspartate Amino Transferase 20 U/L (5-37); Bilirubin Total 0.6 mg/dL (0.0-1.0); Blood Urea Nitrogen 13 mg/dL (9-16); Calcium 9.4 mg/dL (8.4-10.2); Carbon Dioxide 25 mmol/L (22-29); Chloride 108 mmol/L (96-108); Cholesterol 123 mg/dL (<200); Estimated Glomerular Filt Rate > 60; Glucose Fasting 96 mg/dL (60-99); HDL Cholesterol 57 mg/dL (>40); LDL Cholesterol Calculated 61 mg/dL (<100); Sodium 141 mmol/L (135-145); Total Protein 6.2 g/dL (6.5-8.0); Triglycerides 28 mg/dL (<150)
[2023-12-07 13:35] LABS: Prostate Specific Antigen Scr 0.67 ng/mL (<0.05-4.0)
[2023-12-07 13:46] LABS: TSH reflex Free T4 1.23 uIU/mL (0.32-4.0)
[2023-12-07 14:19] LABS: Creatinine Urine 45.23 mg/dL; Microalbumin Urine < 5.0 mg/L
== END 2023-12-07 11:21 | disposition home or self-care (01) ==
LOC: HO.LAB 11:20
PROVIDERS: PCP Physician Assistant; Visit Provider Physician Assistant
DX: C91.10 Chronic lymphocytic leukemia of B-cell type not having achieved remission (principal); I10 Essential (primary) hypertension; E03.9 Hypothyroidism, unspecified; I25.118 Atherosclerotic heart disease of native coronary artery with other forms of angina pectoris; Z12.5 Encounter for screening for malignant neoplasm of prostate
CPT/HCPCS: 36415; 80053; 80061; 82043; 82570; 84153; 84443; 85027

== ENCOUNTER 2023-12-20 12:05 | Outpatient (AMB) | payer MEDICARE, OTHER, SELFPAY ==
[2023-12-20 12:18] VITALS: BP 108/66; PULSE 65; TEMP 36.8; O2SAT 99; BMI 25.4
--- NOTE | 2023-12-20 12:18 | MHC.OFFWIV ---
Intake Vital Signs 12/20/23 12:18 Height 5 ft 7 in Weight 162 lb BMI 25.4 BP 108/66 Blood Pressure Location Rt brachial Position Sitting Pulse 65 Pulse Source Pulse Oximeter Temp 98.3 F Temp Source Oral Pulse Oximetry (%) 99 Oxygen Delivery Method Room Air Intake Visit Reasons: back pain left side- see comm Intake Note: pt c/o LT side back pain. Slipped on steps at house around 11:00 am Patient Tobacco Use Status: Never used Tobacco Allergies Penicillins [PENICILLINS] Allergy (Mild, Verified 12/20/23 12:18) HIVES Do you need a note to return to daycare/school/sports/work: No HPI HPI Comments History of Present Illness Details 78 y/o male patient who presents to the walk in clinic with c/o left sided chest wall and back pain. He fell at home today morning and landed on his chest/back. Reports Pain with moving air in/out. HE took Aspirin at home with some good relief. [facility] Medical History Laceration of right index finger w/o foreign body w/o damage to nail Medicare annual wellness visit, initial Medicare annual wellness visit, initial Skin cancer, basal cell Hypothyroidism Hypercholesterolemia Hx of cardiac arrest CAD (coronary artery disease) CLL (chronic lymphocytic leukemia) Surgical History Hx of colonoscopy History of bilateral knee arthroplasty Hx of thyroidectomy Family History Mother Breast cancer Father Aneurysm Sister Pancreatic cancer Daughter Thyroid cancer Social History Household Members: Family Housing: House Alcohol intake: current Alcohol intake frequency: a few times a week Alcohol type: beer Patient Tobacco Use Status: Never used Tobacco e-Cigarette/Vaping Use: Never Used Second Hand Smoke Exposure: No service: No Current occupational status: retired Current occupational exposures/hazards: No Cognitive needs: No Hearing needs: Yes Vision needs: Yes Review of Systems Const All systems reviewed & are unremarkable except as noted in HPI and below Physical Exam Vital Signs: Last Vital Signs Temp 98.3 F 12/20/23 12:18 Pulse 65 12/20/23 12:18 BP 108/66 12/20/23 12:18 Pulse Ox 99 12/20/23 12:18 Oxygen Delivery Method Room Air 12/20/23 12:18 BMI result Body Mass Index 25.4 Const General: cooperative and no acute distress Orientation/consciousness: patient oriented x3 Chest Chest palpation & inspection: no crepitus, no masses, tenderness rib (Ribs 5th - 6th ribs) and No rash Resp Effort & Inspection: normal respiratory effort and able to speak in complete sentences Auscultation: clear to auscultation bilaterally, no crackles, no rales, no rhonchi and no wheezes Cardio Heart sounds: S1 normal heart sound present and S2 normal heart sound present Back/Spine/Pelvis Thoracic/Lumbar Spine: thoraco-lumbar ROM normal and thoracic spinal tenderness at T3, at T4, at T5 and at T6 Skin General skin exam: no rashes or lesions noted Neuro General: patient oriented x3, gait normal and moves all extremities Psych Speech and movement: Normal speech and movement present Assessment & Plan Assessment & Plan (1) Contusion of left chest wall: Code(s): S20.212A - Contusion of left front wall of thorax, initial encounter Qualifiers: Encounter type: initial encounter Qualified Code(s): S20.212A - Contusion of left front wall of thorax, initial encounter Plan: Ordered chest/Rib Xray NSAIDs and Acetaminophen for pain relief. IceHot Orders: Orders XR ribs LT min 3V w CXR1V Today S20.212A - Contusion of left front wall of thorax, initial encounter Medications: New prednisone 20 mg PO DAILY 10 tabs 0RF S20.212A - Contusion of left front wall of thorax, initial encounter cyclobenzaprine 5 mg PO BEDTIME 7 tabs 0RF S20.212A - Contusion of left front wall of thorax, initial encounter acetaminophen 1,000 mg (2 x 500 mg) PO Q6H PRN 30 caps 0RF pain S20.212A - Contusion of left front wall of thorax, initial encounter Coding Level of Care Code Est Pt Level 4 (07998) Diagnoses Contusion of left chest wall, initial encounter S20.212A Encounter type: initial encounter Time Spent (min) 20
== END 2023-12-20 13:52 | disposition home or self-care (01) ==
PROVIDERS: PCP Physician Assistant; Visit Provider Nurse Practitioner Family
DX: S20.212A Contusion of left front wall of thorax, initial encounter (principal)
CPT/HCPCS: 99214

== ENCOUNTER 2023-12-20 12:47 | Outpatient (REF) | payer MEDICARE, OTHER, SELFPAY ==
--- NOTE | ~2023-12-20 | XR_ITS ---
EXAMINATION: XR RIBS, LEFT CLINICAL INFORMATION: Contusion of the left frontal wall the thorax, initial encounter. Complains of left-sided chest wall tenderness and pain. COMPARISON: 06/27/2019 TECHNIQUE: PA view of the chest and 3 views of the left ribs were obtained. FINDINGS: Dual-lead left pectoral ICD is unchanged. Lungs are clear. No consolidation, pneumothorax, or pleural effusion. The cardiomediastinal silhouette and pulmonary vasculature are normal. Bones are osteopenic. No rib fractures are identified on these images. Moderate to severe glenohumeral osteoarthritis with loose bodies in the superior subscapularis recess. Calcific tendinitis at the greater tuberosity posteriorly. Degenerative disc disease is present in the thoracic spine. XR/XR ribs LT min 3V w CXR1V IMPRESSION: 1. No acute pulmonary findings. 2. No rib fractures are identified. 3. Moderate to severe glenohumeral osteoarthritis with loose bodies in the superior subscapularis recess.
== END 2023-12-20 12:48 | disposition home or self-care (01) ==
LOC: HO.HMGCX 12:47
PROVIDERS: PCP Physician Assistant; Visit Provider Nurse Practitioner Family
DX: S20.212A Contusion of left front wall of thorax, initial encounter (principal)
CPT/HCPCS: 71101

== ENCOUNTER 2023-12-23 15:30 | Inpatient (IN) | payer MEDICARE, OTHER, SELFPAY ==
--- NOTE | ~2023-12-23 | XR_ITS ---
EXAMINATION: XR CHEST CLINICAL INFORMATION: Fall rib fracture COMPARISON: CT chest from 12/23/2023, left rib radiograph from 12/20/2023 TECHNIQUE: Frontal view of the chest was obtained. FINDINGS: No focal consolidation. No pneumothorax. Trachea is midline. Left-sided dual-lead pacer, stable. Cardiac mediastinal silhouette is stable. Aorta demonstrates tortuosity. No large pleural effusion. Previously identified left-sided rib fractures are less conspicuous on current examination. Degenerative arthropathy of the glenohumeral joint. Soft tissues are unremarkable. XR/XR chest 1V IMPRESSION: 1. No acute cardiopulmonary process. 2. Previously identified left-sided rib fractures are less conspicuous on current examination.
--- NOTE | ~2023-12-23 | CT_ITS ---
EXAMINATION: CT CHEST WITHOUT CONTRAST CLINICAL INFORMATION: Left-sided rib pain. Fall COMPARISON: None available. TECHNIQUE: Multidetector volumetric CT imaging of the chest was done. Axial MIP volume rendering provided. Sagittal and coronal reformatted images were obtained. This CT examination was performed using dose optimization techniques as appropriate, variously including the following: *Automated exposure control *Adjustment of mA and/or kV according to patient size (this includes techniques or standardized protocols for targeted exams where dose is matched to indication/reason for exam; i.e. extremities or head) *Use of iterative reconstruction technique DLP: 221 mGy-cm FINDINGS: TRANSPORTATION PLANNING TECHNICIAN: There is a power generator in the left chest with leads projecting in the expected region of the right atrium and right ventricle. LUNGS: Slight mass effect on the right side of the trachea at the level of the aortic arch. There is a peripheral 0.4 cm solid nodule in the lateral aspect of the apical left upper lobe (series 6, image 80). In a low risk patient this does not require any specific imaging follow-up. There is a thin-walled cyst in the posterolateral left lower lobe that does not require any specific imaging follow-up. There are nonspecific dependent lung densities in the left costophrenic sulcus region. No evidence of acute pneumonia. MEDIASTINUM: There is no mediastinal hematoma. The aorta is tortuous. No definite abnormality of the esophagus. There are no enlarged mediastinal or hilar lymph nodes. CORONARY ARTERY CALCIFICATION: There is extensive coronary artery calcification. There are cardiac leads which cause some artifact. The main pulmonary artery is normal caliber. There are no pericardial fluid collections PLEURA: There is no pleural fluid. There is no pneumothorax. AXILLA: Artifact related to the power generator. No enlarged axillary lymph nodes. UPPER ABDOMEN: No suspicious abnormality on limited assessment OSSEOUS STRUCTURES: There is a nondisplaced cortical irregularity involving the deep aspect of the posterior left fifth rib. There is a nondisplaced fracture through the cortex of the posterior left sixth rib and there is a nondisplaced posterolateral left sixth rib fracture. There is a nondisplaced posterolateral left seventh rib fracture. There is a nondisplaced posterior left seventh rib fracture. There is a nondisplaced posterior left eighth rib fracture. There is mild deformity of the posterolateral left eighth rib which is equivocal. There are possible nondisplaced posterior left ninth and 10th rib fractures. Despite very careful review an equivocal lucency through the left L1 pedicle cannot be confirmed. This is only equivocally present on the coronal series and could be artifactual. CT/CT chest wo IV con IMPRESSION: No pneumothorax. No pneumonia. There are several nondisplaced posterior left lower rib fractures. An equivocal finding of the left L1 pedicle is not confirmed in multiple planes Fleischner guidelines were followed.
[2023-12-23 16:18] VITALS: BP 135/77; PULSE 65; RESP 18; TEMP 36.2; O2SAT 97; BMI 25.6
--- NOTE | 2023-12-23 16:21 | ED.GENADULT ---
HPI - General Adult General Chief complaint: Back Pain/Injury Stated complaint: fell on tuesday, has back pain, seen by [facility] Time Seen by Provider: 12/23/23 21:49 Source: patient Limitations: no limitations History of Present Illness HPI narrative: 78-year-old male who has a history of paroxysmal AFib not anticoagulated, AICD, history of cardiac arrest, hypertension, CLL, presents for evaluation after a fall that occurred on December 19. Patient states he was walking onto his porch to take out some recycling and due to the rain the steps and port was wet. Patient states that he slipped, and fell to his left flank. He denies any prodromal symptoms. He did not strike his head. There was no LOC. patient was able to get up on his own and ambulate after the incident. He went to urgent care that day where he had an x-ray that did not demonstrate any broken ribs. Since that time, the patient has had constant pain. He has been taking Tylenol without any relief. He therefore presents to the emergency department today for further evaluation. He complains of localized pain to the left posterior chest. He denies any abdominal pain. He has been eating and drinking normally. Pain is exacerbated when he lays down to sleep. He denies any urinary symptoms or hematuria. Related Data Home Medications ?Medication ?Instructions ?Recorded ?Confirmed mexiletine 200 mg capsule 200 mg PO BID 03/03/20 12/05/23 ranolazine 500 mg tablet,extended 500 mg PO BID 03/03/20 12/05/23 release,12 hr alpha lipoic acid 200 mg tablet 200 mg PO 3XW 03/04/20 12/05/23 ascorbic acid (vitamin C) 1,000 mg 1 g PO 3XW 03/04/20 12/05/23 tablet (Vitamin C) aspirin 162 mg tablet,delayed 162 mg PO DAILY 03/04/20 12/05/23 release cholecalciferol (vitamin D3) 50 50 mcg PO 3XW 03/04/20 12/05/23 mcg (2,000 unit) tablet (Vitamin D3) coenzyme Q10 100 mg capsule 200 mg PO DAILY 03/04/20 12/05/23 (CoQ-10) ginkgo biloba 120 mg tablet 120 mg PO BID 03/04/20 12/05/23 iron 18 mg tablet 10 mg PO 3XW 03/04/20 12/05/23 magnesium aspart,citrate,oxide 400 mg PO 3XW 03/04/20 12/05/23 vitamin B complex (Complex B-100 1 tab PO Q2W 12/20/23 tablet,extended release) Previous Rx's ?Medication ?Instructions ?Recorded finasteride 5 mg tablet 5 mg PO DAILY #90 tabs 02/23/23 blood pressure test kit-medium #1 ea 04/18/23 lactulose 10 gram/15 mL (15 mL) 10 g (15 mL) PO DAILY PRN laxative 04/29/23 oral solution effect 30 days #600 mL isosorbide mononitrate 30 mg 15 mg (1/2 x 30 mg) PO DAILY 90 05/23/23 tablet,extended release 24 hr days #45 tabs tamsulosin 0.4 mg capsule 0.4 mg PO DAILY #90 caps 06/01/23 levothyroxine 112 mcg tablet 112 mcg PO QAM #90 tabs 07/17/23 nitroglycerin 0.4 mg sublingual 0.4 mg sublingual Q5M PRN chest 07/23/23 tablet pain 15 days #30 tabs acetaminophen 500 mg capsule 1,000 mg (2 x 500 mg) PO Q6H PRN 12/20/23 pain #30 caps cyclobenzaprine 5 mg tablet 5 mg PO BEDTIME #7 tabs 12/20/23 prednisone 20 mg tablet 20 mg PO DAILY #10 tabs 12/20/23 rosuvastatin 20 mg tablet 20 mg PO DAILY #90 tabs 12/23/23 Allergies Allergy/AdvReac Type Severity Reaction Status Date / Time Penicillins [PENICILLINS] Allergy Mild HIVES Verified 12/23/23 16:24 Review of Systems Constitutional: Constitutional: Denies chills, Denies fever(s) and Denies headache(s) Eyes: Eyes: Denies change in vision and Denies other (No redness.) ENT: Denies headache(s), Denies nasal congestion, Denies nasal discharge and Denies neck pain Cardiovascular: Cardiovascular: Denies chest pain, Denies palpitations, Denies dyspnea, Denies dyspnea on exertion and Denies orthopnea Respiratory: Respiratory: Denies cough, Denies dyspnea and Denies dyspnea on exertion Gastrointestinal: Gastrointestinal: Denies abdominal pain, Denies melena, Denies hematochezia, Denies diarrhea, Denies nausea and Denies vomiting Genitourinary: Genitourinary: Denies difficulty urinating, Denies dysuria and Denies urinary urgency Musculoskeletal: Musculoskeletal: Denies muscle weakness, Denies neck pain and Denies numbness Comments: Pain to left posterior chest Integumentary/Breasts: Skin/Breast: Denies rash Neurologic: Denies headache(s), Denies focal weakness and Denies numbness Endocrine: Endocrine: Denies palpitations PMFSH Past Medical History Medical History Laceration of right index finger w/o foreign body w/o damage to nail Medicare annual wellness visit, initial Medicare annual wellness visit, initial Skin cancer, basal cell Hypothyroidism Hypercholesterolemia Hx of cardiac arrest CAD (coronary artery disease) CLL (chronic lymphocytic leukemia) Surgical History Hx of colonoscopy History of bilateral knee arthroplasty Hx of thyroidectomy Family History Family History Mother Breast cancer Father Aneurysm Sister Pancreatic cancer Daughter Thyroid cancer Social History Social History Household Members: Family Housing: House Alcohol intake: current Alcohol intake frequency: a few times a week Alcohol type: beer Patient Tobacco Use Status: Never used Tobacco e-Cigarette/Vaping Use: Never Used Second Hand Smoke Exposure: No Advance Directives: No Advance Directives Information Provided: No Do you have a plan to hurt others: No Plan service: No Current occupational status: retired Current occupational exposures/hazards: No Cognitive needs: No Hearing needs: Yes Vision needs: Yes Physical Exam ED Vital Signs: Vital Signs - 24 hr 12/23/23 16:18 12/23/23 23:03 Temperature 97.2 F 98.4 F Pulse Rate 65 65 Respiratory Rate 18 16 Blood Pressure 135/77 167/90 H Pulse Oximetry 97 100 Oxygen Delivery Method Room Air Room Air BMI result Body Mass Index 25.6 Const Other: Ambulatory in exam room General: no acute distress, alert, awake and Physically active Orientation/consciousness: patient oriented x3 HENMT Other: Normocephalic, atraumatic. There is no ecchymosis noted. Neck Other: There is no spinous, paraspinous or paravertebral tenderness. Chest Other: There is diffuse tenderness to the left posterior axillary region, in the area of ribs 4 through 10. There is no crepitus or subcu emphysema. No ecchymosis noted. Resp Other: Lung sounds are clear throughout. Slight splinting on deep inspiration. Cardio Rate: regular rate GI Other: Abdomen is soft and nontender throughout. There is no peritoneal signs. No right upper quadrant or left upper quadrant tenderness. Neuro General: patient oriented x3 and CN's II-XI intact bilaterally Course Course Course Narrative: This is an RME: Additional HPI, ROS, PE not included below will be deferred to primary provider. RME assessment and note performed by: Sandra Weiner PA-C This is a 78 y/o M who presents to the ER with complaints of left sided rib pain. Patient states that he had a mechanical fall last week, and has had increased left-sided rib pain and back pain. Was seen at urgent care where he had a x-ray performed which was unremarkable for any acute fractures. He has ongoing worsening pain, was told to come to the emergency room for CT scan to rule out fracture. He has tenderness palpation along the left lateral ribs. Plan: CT chest Reevaluation(s) Reevaluation #1: 10:[address] Triplett from thoracic surgery, reviewed patient's history and CT findings. He would like the patient brought into the hospital on the medicine service and the thoracic service will follow. Pain management. Consideration for nerve block, incentive spirometry and plain film in the morning. I have discussed with the patient thoracic surgery recommendations. The patient is agreeable to this. Labs are pending at this time. 11:05 p.m. labs returned, no acute process. Message to Dr. Yadav for transfer of care. Medical Decision Making Medical Decision Making MDM Narrative: 78-year-old male who has a history of paroxysmal AFib, AICD, history of VFib arrest, CLL, status post slip and fall 3 days ago to the left chest. Found to have nondisplaced rib fractures at ribs 5 through 10. There is no evidence of solid organ injury on CT. Given the extensive nature of the patient's injury, we will check labs. In addition, consult thoracic surgery. Discussed with Dr. De Luna who agrees with plan. Patient does not typically take narcotic analgesia and he has had a history of hypotension therefore caution with narcotic analgesia. Trial of Tylenol with codeine. Differential Diagnosis Differential Diagnoses: The differential diagnosis associated with the presentation includes Rib fractures Pneumothorax Solid organ injury Metabolic abnormality Admission/Observation Consideration of admission/observation: Escalation of care including admission/observation considered Given the nature of the patient's injury and recommendations from thoracic surgery, patient will be brought into the hospital for further evaluation and management. Consult Healthcare Provider Management of the patient was discussed with: Hospitalist and [facility] Lab Data MDM Lab Attestation statement: I reviewed the patient's lab results. 12/23/23 22:37 12/23/23 22:37 Labs: Lab Results 12/23/23 Range/Units 22:37 WBC 10.7 (4.8-10.8) X10*3/uL RBC 4.33 L (4.60-5.80) X10*6/uL Hgb 14.1 (14.0-18.0) g/dl Hct 41.4 L (42.0-52.0) % MCV 95.6 (80.0-98.0) fL MCH 32.6 (27.0-33.0) pg MCHC 34.1 (31.0-36.0) g/dl RDW 13.2 (11.0-16.0) % Plt Count 164 (160-400) X10*3/uL MPV 9.4 (9.4-12.4) fL Immature Gran % (Auto) 0.3 (0.0-0.4) % Neut % (Auto) 34.6 L (45-73) % Lymph % (Auto) 55.9 H (20-40) % [place] % (Auto) 5.9 (2-11) % Eos % (Auto) 2.6 (0-4) % Baso % (Auto) 0.7 (0-2) % Lymph # (Auto) 6.0 H (1.2-4.9) X10*3/uL [place] # (Auto) 0.6 (0.1-1.2) X10*3/uL Eos # (Auto) 0.3 (0.0-0.4) X10*3/uL Baso # (Auto) 0.1 (0.0-0.2) X10*3/uL Abs Immat Gran (auto) 0.03 (0.00-0.03) X10*3/uL Absolute Neuts (auto) 3.7 (2.0-8.3) x10*3/uL Absolute Nucleated RBC 0.000 (0.0-0.012) X10*3/uL Nucleated RBC % (auto) 0.0 (0.0-0.2) /100WBC Smear Tech's Comments VERIFIED Sodium 141 (135-145) mmol/L Potassium 4.0 (3.3-5.1) mmol/L Chloride 106 (96-108) mmol/L Carbon Dioxide 26 (22-29) mmol/L Anion Gap 13 (12-20) BUN 10 (9-16) mg/dL Creatinine 0.83 (0.5-1.4) mg/dL Estim Creat Clear Calc 67.4 Estimated GFR > 60 Random Glucose 100 (60-115) mg/dL Calcium 9.8 (8.4-10.2) mg/dL Total Bilirubin 0.8 (0.0-1.0) mg/dL AST 27 (5-37) U/L ALT 17 (0-40) U/L Alkaline Phosphatase 62 (39-117) U/L Total Protein 7.2 (6.5-8.0) g/dL Albumin 4.5 (3.5-5.0) g/dL Lipase 14 (8-78) U/L Urine Color Yellow Urine Appearance Clear Urine pH 7.5 (5.0-9.0) Ur Specific [place] 1.010 (1.005-1.025) Urine Protein Negative (Neg-Trace) mg/dL Urine Glucose (UA) Negative (Negative) mg/dL Urine Ketones Negative (Negative) mg/dL Urine Blood Negative (Negative) Urine Nitrite Negative (Negative) Ur Leukocyte Esterase Negative (Negative) Independent Interpretation I performed an independent interpretation of an: EKG Interpretation: Paced at 65 beats per minute without any acute ischemic changes. Radiology Impression Discussion of test interpretation with radiology: I have reviewed the radiologist's reading. Radiologist Impression: [address] [address] [address] Scan Report Signed Patient: Mckinley Mcgrath MR#: [id number] : 1945 Acct:[id number] Age/Sex: 78 / M ADM Date: 12/23/23 Loc: HO.ED Attending Dr: Ordering Physician: Sandra Weiner Date of Service: 12/23/23 Procedure(s): CT chest wo IV con Accession Number(s): [id number] cc: Eitan Ocampo PA-C; Sandra Weiner~ EXAMINATION: CT CHEST WITHOUT CONTRAST CLINICAL INFORMATION: Left-sided rib pain. Fall COMPARISON: None available. TECHNIQUE: Multidetector volumetric CT imaging of the chest was done. Axial MIP volume rendering provided. Sagittal and coronal reformatted images were obtained. This CT examination was performed using dose optimization techniques as appropriate, variously including the following: *Automated exposure control *Adjustment of mA and/or kV according to patient size (this includes techniques or standardized protocols for targeted exams where dose is matched to indication/reason for exam; i.e. 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 LUNGS: Slight mass effect on the right side of the trachea at the level of the aortic arch. There is a peripheral 0.4 cm solid nodule in the lateral aspect of the apical left upper lobe (series 6, image 80). In a low risk patient this does not require any specific imaging follow-up. There is a thin-walled cyst in the posterolateral left lower lobe that does not require any specific imaging follow-up. There are nonspecific dependent lung densities in the left costophrenic sulcus region. No evidence of acute pneumonia. MEDIASTINUM: There is no mediastinal hematoma. The aorta is tortuous. No definite abnormality of the esophagus. There are no enlarged mediastinal or hilar lymph nodes. CORONARY ARTERY CALCIFICATION: There is extensive coronary artery calcification. There are cardiac leads which cause some artifact. The main pulmonary artery is normal caliber. There are no pericardial fluid collections PLEURA: There is no pleural fluid. There is no pneumothorax. AXILLA: Artifact related to the power generator. No enlarged axillary lymph nodes. UPPER ABDOMEN: No suspicious abnormality on limited assessment OSSEOUS STRUCTURES: There is a nondisplaced cortical irregularity involving the deep aspect of the posterior left fifth rib. There is a nondisplaced fracture through the cortex of the posterior left sixth rib and there is a nondisplaced posterolateral left sixth rib fracture. There is a nondisplaced posterolateral left seventh rib fracture. There is a nondisplaced posterior left seventh rib fracture. There is a nondisplaced posterior left eighth rib fracture. There is mild deformity of the posterolateral left eighth rib which is equivocal. There are possible nondisplaced posterior left ninth and 10th rib fractures. Despite very careful review an equivocal lucency through the left L1 pedicle cannot be confirmed. This is only equivocally present on the coronal series and could be artifactual. CT/CT chest wo IV con IMPRESSION: No pneumothorax. No pneumonia. There are several nondisplaced posterior left lower rib fractures. An equivocal finding of the left L1 pedicle is not confirmed in multiple planes Fleischner guidelines were followed. 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
--- NOTE | 2023-12-23 22:16 | ECG_ITS ---
Test Reason : arrhythmia Blood Pressure : / mmHG Vent. Rate : 065 BPM Atrial Rate : 065 BPM P-R Int : 248 ms QRS Dur : 100 ms QT Int : 446 ms P-R-T Axes : 000 -14 050 degrees QTc Int : 463 ms Atrial-paced rhythm with prolonged AV conduction Abnormal ECG When compared with ECG of 17-NOV-2023 16:11, Non-specific change in ST segment in Lateral leads Nonspecific T wave abnormality no longer evident in Lateral leads Referred By: Jori Odonnell Electronically Signed By:LINDA CRAWLEY MD
[2023-12-23 22:44] LABS: Basophils Absolute Auto 0.1 X10*3/uL (0.0-0.2); Basophils Percent Auto 0.7 % (0-2); Eosinophils Absolute Auto 0.3 X10*3/uL (0.0-0.4); Eosinophils Percent Auto 2.6 % (0-4); Hematocrit 41.4 % (42.0-52.0); Hemoglobin 14.1 g/dl (14.0-18.0); Imm Gran Abs Auto 0.03 X10*3/uL (0.00-0.03); Imm Gran Pct Auto 0.3 % (0.0-0.4); Lymphocytes Percent Auto 55.9 % (20-40); MANUAL DIFF FLAG SCAN; Mean Corpuscular HGB Conc 34.1 g/dl (31.0-36.0); Mean Corpuscular Hemoglobin 32.6 pg (27.0-33.0); Mean Corpuscular Volume 95.6 fL (80.0-98.0); Mean Platelet Volume 9.4 fL (9.4-12.4); Monocytes Absolute Auto 0.6 X10*3/uL (0.1-1.2); Monocytes Percent Auto 5.9 % (2-11); Neutrophils Absolute Auto 3.7 x10*3/uL (2.0-8.3); Neutrophils Percent Auto 34.6 % (45-73); Platelet Count 164 X10*3/uL (160-400); Red Blood Count 4.33 X10*6/uL (4.60-5.80); Red Cell Distribution Width 13.2 % (11.0-16.0); SCAN SMEAR FLAG 1; White Blood Count 10.7 X10*3/uL (4.8-10.8)
[2023-12-23 22:48] LABS: Appearance Urine Clear; Color Urine Yellow; Glucose Urine UA Negative (Negative); Leukocyte Esterase Urine Negative (Negative); Nitrite Urine Negative (Negative); PH 7.5 (5.0-9.0); Urine Blood Negative (Negative); Urine Ketones Negative (Negative); Urine Protein Negative (Neg-Trace)
[2023-12-23 22:57] LABS: Alanine Aminotransferase 17 U/L (0-40); Albumin Level 4.5 g/dL (3.5-5.0); Alkaline Phosphatase 62 U/L (39-117); Anion Gap 13 (12-20); Aspartate Amino Transferase 27 U/L (5-37); Bilirubin Total 0.8 mg/dL (0.0-1.0); Blood Urea Nitrogen 10 mg/dL (9-16); Calcium 9.8 mg/dL (8.4-10.2); Carbon Dioxide 26 mmol/L (22-29); Chloride 106 mmol/L (96-108); Creatinine Clr Calc Pharmacy 67.4; Estimated Glomerular Filt Rate > 60; Glucose Random 100 mg/dL (60-115); Lipase 14 U/L (8-78); Sodium 141 mmol/L (135-145); Total Protein 7.2 g/dL (6.5-8.0)
[2023-12-23 23:03] VITALS: BP 167/90; PULSE 65; RESP 16; TEMP 36.9; O2SAT 100
[2023-12-23 23:15] LABS: SLIDE REVIEW VERIFIED
--- NOTE | 2023-12-23 23:24 | P.HPHOSP_ITS ---
History of Present Illness Date of Service: 12/23/23 Chief Complaint: Fall This is a 78-year-old male with pertinent history of BPH, history of VFib cardiac arrest status post defibrillator, hypothyroidism, coronary artery disease status post stent, CLL who presents to the emergency department for evaluation of chest pain after a fall. Patient states he fell on his steps in front of the house 2 days prior to presentation. Patient has been having chest pain which is not relieved with Tylenol and hence decided to come to the ER. Denies dyspnea, orthopnea or PND. Denies loss of consciousness prior to the fall. No chest pain or palpitations prior to the fall. No rhythmic jerking movement of extremities. States he missed a step on the staircase and fell. Did not hit his head. No fever, chills, shortness of breath, palpitations, abdominal pain, changes in urinary or bowel habits. In the emergency department, nondisplaced multiple left lower rib fractures. Thoracic surgery was consulted who requested admission for observation Review of Systems 2 Constitutional: Constitutional: Reports no additional constitutional complaints Cardiovascular: Cardiovascular: Reports no additional cardiovascular complaints Respiratory: Respiratory: Reports no additional respiratory complaints Gastrointestinal: Gastrointestinal: Reports no additional gastrointestinal complaints Genitourinary: Genitourinary: Reports no additional male genitourinary complaints COUNTS INCLUDE 234 BEDS AT THE [facility] Medical History Laceration of right index finger w/o foreign body w/o damage to nail Medicare annual wellness visit, initial Medicare annual wellness visit, initial Skin cancer, basal cell Hypothyroidism Hypercholesterolemia Hx of cardiac arrest CAD (coronary artery disease) CLL (chronic lymphocytic leukemia) Family History Mother Breast cancer Father Aneurysm Sister Pancreatic cancer Daughter Thyroid cancer Surgical History Hx of colonoscopy History of bilateral knee arthroplasty Hx of thyroidectomy Social History Household Members: Family Housing: House Alcohol intake: current Alcohol intake frequency: a few times a week Alcohol type: beer Patient Tobacco Use Status: Never used Tobacco e-Cigarette/Vaping Use: Never Used Second Hand Smoke Exposure: No Advance Directives: No Advance Directives Information Provided: No Do you have a plan to hurt others: No Plan service: No Current occupational status: retired Current occupational exposures/hazards: No Cognitive needs: No Hearing needs: Yes Vision needs: Yes Meds Allergies Allergy/AdvReac Type Severity Reaction Status Date / Time Penicillins [PENICILLINS] Allergy Mild HIVES Verified 12/23/23 16:24 Home Medications ?Medication ?Instructions ?Recorded ?Confirmed ?Last Taken ?Type mexiletine 200 mg capsule 200 mg PO BID 03/03/20 12/05/23 Unknown History ranolazine 500 mg tablet,extended 500 mg PO BID 03/03/20 12/05/23 Unknown History release,12 hr alpha lipoic acid 200 mg tablet 200 mg PO 3XW 03/04/20 12/05/23 Unknown History ascorbic acid (vitamin C) 1,000 mg 1 g PO 3XW 03/04/20 12/05/23 Unknown History tablet (Vitamin C) aspirin 162 mg tablet,delayed 162 mg PO DAILY 03/04/20 12/05/23 Unknown History release cholecalciferol (vitamin D3) 50 50 mcg PO 3XW 03/04/20 12/05/23 Unknown History mcg (2,000 unit) tablet (Vitamin D3) coenzyme Q10 100 mg capsule 200 mg PO DAILY 03/04/20 12/05/23 Unknown History (CoQ-10) ginkgo biloba 120 mg tablet 120 mg PO BID 03/04/20 12/05/23 Unknown History iron 18 mg tablet 10 mg PO 3XW 03/04/20 12/05/23 Unknown History magnesium aspart,citrate,oxide 400 mg PO 3XW 03/04/20 12/05/23 Unknown History vitamin B complex (Complex B-100 1 tab PO Q2W 12/20/23 Unknown History tablet,extended release) Physical Exam 2 Vital Signs and Narrative: Vital Signs: Last Vital Signs Temp 98.4 F 12/23/23 23:03 Pulse 65 12/23/23 23:03 Resp 16 12/23/23 23:03 BP 167/90 H 12/23/23 23:03 Pulse Ox 100 12/23/23 23:03 O2 Del Method Room Air 12/23/23 23:03 BMI result Body Mass Index 25.6 Middle-aged male lying in bed in no distress Neck supple, no JVD Regular rate and rhythm, S1-S2 heard Regular breath sounds bilaterally, no wheezing or crackles appreciated Abdomen soft nontender, no guarding, no rigidity Patient is awake, alert and oriented to self, place, time and person ; no focal motor deficit Psych: Normal mood No pedal edema Results Labs 12/23/23 22:37 12/23/23 22:37 Labs: Laboratory Results - last 24 hr 12/23/23 22:37 MCV 95.6 MCH 32.6 MCHC 34.1 RDW 13.2 Plt Count 164 MPV 9.4 Immature Gran % (Auto) 0.3 Neut % (Auto) 34.6 L Lymph % (Auto) 55.9 H [place] % (Auto) 5.9 Eos % (Auto) 2.6 Baso % (Auto) 0.7 Lymph # (Auto) 6.0 H [place] # (Auto) 0.6 Eos # (Auto) 0.3 Baso # (Auto) 0.1 Abs Immat Gran (auto) 0.03 Absolute Neuts (auto) 3.7 Absolute Nucleated RBC 0.000 Nucleated RBC % (auto) 0.0 Smear Tech's Comments VERIFIED Anion Gap 13 Estim Creat Clear Calc 67.4 Estimated GFR > 60 Random Glucose 100 Calcium 9.8 Total Bilirubin 0.8 AST 27 ALT 17 Alkaline Phosphatase 62 Total Protein 7.2 Albumin 4.5 Lipase 14 Urine Color Yellow Urine Appearance Clear Urine pH 7.5 Ur Specific [place] 1.010 Urine Protein Negative Urine Glucose (UA) Negative Urine Ketones Negative Urine Blood Negative Urine Nitrite Negative Ur Leukocyte Esterase Negative Imaging Radiologist's Impressions: Impressions Chest CT 12/23/23 16:51 IMPRESSION: No pneumothorax. No pneumonia. There are several nondisplaced posterior left lower rib fractures. An equivocal finding of the left L1 pedicle is not confirmed in multiple planes Fleischner guidelines were followed. Assessment and Plan (1) Fracture of rib: Qualifiers: Encounter type: initial encounter Fracture type: closed Laterality: l eft Rib fracture type: multiple ribs Qualified Code(s): S22.42XA - Multiple fractures of ribs, left side, initial encounter for closed fracture Status: Acute Plan This is a 78-year-old male with pertinent history of BPH, history of VFib cardiac arrest status post defibrillator, hypothyroidism, coronary artery disease status post stent, CLL who presents to the emergency department for evaluation of chest pain after a fall. #. Nondisplaced posterior left lower rib fractures due to mechanical fall: Will admit patient for observation pain control. Appreciate thoracic surgery assistance. Repeat chest x-ray in the morning. Initiating incentive spirometry #. BPH: Continue Flomax and finasteride #. CAD: On aspirin and statin #. Hypothyroidism: On Synthroid Med rec pending DVT prophylaxis: Lovenox Full code Quality Stroke Does the patient have a stroke diagnosis?: No VTE Prior VTE?: No VTE Risk Level:: Medical - moderate - high VTE Device Contraindication: Treatment Not Indicated VTE Drug Contraindication: N/A - Med Ordered
[2023-12-23] MEDS: Acetaminophen/Codeine 300-30mg Tablet 1 TAB PO (23:41)
[2023-12-24] MEDS: 0.9 % Sodium Chloride Flush 3 ML SYRINGE IVFLUSH ×4 (00:52→21:04)
--- NOTE | 2023-12-24 00:55 | MHC.EDTECH ---
This tech took over care of patient at this time,patient was brought from ED bed 4 to room 1 in overflow, Patient ambulated to the bathroom with a steady gait,patient in hospital bed at this time,call murray in reach
[2023-12-24 01:16] VITALS: BP 138/80; PULSE 82; RESP 18; TEMP 36.8; O2SAT 100
--- NOTE | 2023-12-24 01:16 | MHC.EDTECH ---
Vitals taken at this time,patient was given a jello per request.
--- NOTE | 2023-12-24 03:58 | MHC.EDTECH ---
Hourly rounds completed,patient is sleeping,call murray in reach
[2023-12-24] MEDS: traMADoL HCL 50 MG TABLET 25 MG PO (04:18)
[2023-12-24 06:00] VITALS: BP 150/87; PULSE 64; RESP 18; TEMP 36.6; O2SAT 100
[2023-12-24 06:06] LABS: MANUAL DIFF FLAG NO
[2023-12-24 06:08] LABS: Basophils Percent Auto 0.5 % (0-2); Eosinophils Absolute Auto 0.2 X10*3/uL (0.0-0.4); Eosinophils Percent Auto 2.7 % (0-4); Hematocrit 38.3 % (42.0-52.0); Hemoglobin 13.1 g/dl (14.0-18.0); Imm Gran Abs Auto 0.02 X10*3/uL (0.00-0.03); Imm Gran Pct Auto 0.2 % (0.0-0.4); Lymphocytes Absolute Auto 4.6 X10*3/uL (1.2-4.9); Lymphocytes Percent Auto 52.2 % (20-40); Mean Corpuscular HGB Conc 34.2 g/dl (31.0-36.0); Mean Corpuscular Hemoglobin 32.4 pg (27.0-33.0); Mean Corpuscular Volume 94.8 fL (80.0-98.0); Mean Platelet Volume 9.3 fL (9.4-12.4); Monocytes Absolute Auto 0.6 X10*3/uL (0.1-1.2); Neutrophils Absolute Auto 3.3 x10*3/uL (2.0-8.3); Neutrophils Percent Auto 37.4 % (45-73); Platelet Count 146 X10*3/uL (160-400); Red Blood Count 4.04 X10*6/uL (4.60-5.80); Red Cell Distribution Width 13.1 % (11.0-16.0); White Blood Count 8.8 X10*3/uL (4.8-10.8)
--- NOTE | 2023-12-24 06:14 | MHC.EDTECH ---
Hourly rounds and vitals completed,call murray in reach
[2023-12-24 06:18] LABS: Anion Gap 14 (12-20); Blood Urea Nitrogen 9 mg/dL (9-16); Calcium 9.2 mg/dL (8.4-10.2); Carbon Dioxide 24 mmol/L (22-29); Chloride 107 mmol/L (96-108); Estimated Glomerular Filt Rate > 60; Glucose Random 96 mg/dL (60-115); Potassium 3.8 mmol/L (3.3-5.1); Sodium 141 mmol/L (135-145)
[2023-12-24] MEDS: Docusate Sodium 100 MG CAPSULE PO ×2 (09:01→20:56)
[2023-12-24] MEDS: polyethylene glycoL 3350 17 GM POWD.PACK PO (09:01)
[2023-12-24] MEDS: Acetaminophen 325 MG TABLET 650 MG PO (09:06)
--- NOTE | 2023-12-24 12:28 | PHA.MEDREC ---
Pharmacy Consult ? Medication Reconciliation Pharmacy has completed the medication reconciliation.
--- NOTE | 2023-12-24 13:18 | P.PNIM_ITS ---
Subjective Subjective Date of Service: 12/24/23 Interval History: multiple rib fractures Review of Systems still has significant pain denies any sob Physical Exam 2 Vital Signs: Vital Signs: Last Vital Signs Temp 97.9 F 12/24/23 06:00 Pulse 64 12/24/23 06:00 Resp 18 12/24/23 06:00 BP 150/87 H 12/24/23 06:00 Pulse Ox 100 12/24/23 06:00 O2 Del Method Room Air 12/24/23 06:00 BMI result Body Mass Index 25.6 Neck supple, no JVD CVS:Regular rate and rhythm, S1-S2 heard pulm:Air entry fair , no rales or wheezing. Abdomen soft nontender, no guarding, no rigidity MS:has left lower rib cage pain Patient is awake, alert and oriented to self, place, time and person ; no focal motor deficit Psych: Normal mood No pedal edema Objective Data Active Medications Acetaminophen (Acetaminophen 325 Mg Tablet) 650 mg PO Q6H PRN PRN Reason: Pain, Mild (Pain Scale 1-3), fever or headache Last Admin: 12/24/23 09:06 Dose: 650 mg Documented By: SHANE Ascorbic Acid (Ascorbic Acid 500 Mg Tablet) 1,000 mg PO SUTUTH@0900 [facility] Aspirin (Aspirin Enteric Coated 81 Mg Tablet.) 162 mg PO DAILY [facility] Atorvastatin Calcium (Atorvastatin Calcium 80 Mg Tablet) 80 mg PO BEDTIME [facility] Calcium Carbonate (Calcium Carbonate 750 Mg Tab.Chew) 750 mg PO Q4H PRN PRN Reason: Heartburn Docusate Sodium (Docusate Sodium 100 Mg Capsule) 100 mg PO BID [facility] Last Admin: 12/24/23 09:01 Dose: 100 mg Documented By: SHANE Ferrous Sulfate (Ferrous Sulfate 324 Mg Tablet.) 324 mg PO TUTHSA@0900 [facility] Finasteride (Finasteride 5 Mg Tablet) 5 mg PO DAILY [facility] Isosorbide Mononitrate (Isosorbide Mononitrate 30 Mg Tab.Er.24h) 15 mg PO DAILY [facility]; Protocol Lactulose (Lactulose 20 Gm/30 Ml Solution) 10 gm PO DAILY PRN PRN Reason: laxative effect Levothyroxine Sodium (Levothyroxine Sodium 112 Mcg Tablet) 112 mcg PO DAILY@0600 [facility] Lisinopril (Lisinopril 2.5 Mg Tablet) 2.5 mg PO DAILY [facility]; Protocol Magnesium Hydroxide (Milk Of Magnesia 30 Ml Oral.Susp) 30 ml PO DAILY PRN PRN Reason: Constipation Melatonin (Melatonin 3 Mg Tablet) 6 mg PO BEDTIME PRN PRN Reason: Insomnia Morphine Sulfate (Morphine Sulfate 4 Mg/Ml Cartridge) 2 mg IVPUSH Q4H PRN; Protocol PRN Reason: Pain, Severe (Pain Scale 7-10) Multivitamins/Vitamin C (Multivitamin Tablet) 1 tab PO Q14D [facility] Nitroglycerin (Nitroglycerin 0.4 Mg Tab.Subl) 0.4 mg SUBLINGUAL Q5M PRN PRN Reason: chest pain Non-Formulary Medication (Mexiletine) 200 mg PO BID [facility] Ondansetron HCl (Ondansetron Hcl 4 Mg/2 Ml Vial) 4 mg IVPUSH Q8H PRN PRN Reason: Nausea and Vomiting Polyethylene Glycol (Polyethylene Glycol 3350 17 Gm Powd.Pack) 17 gm PO DAILY [facility] Last Admin: 12/24/23 09:01 Dose: 17 gm Documented By: SHANE Ranolazine (Ranolazine 500 Mg Tab.Er.12h) 500 mg PO BID [facility] Sodium Chloride (0.9 % Sodium Chloride Flush 3 Ml Syringe) 3 ml IVFLUSH QSHIFT [facility] Last Admin: 12/24/23 08:10 Dose: 3 ml Documented By: SHANE Tamsulosin HCl (Tamsulosin Hcl 0.4 Mg Capsule) 0.4 mg PO DAILY [facility] Tramadol HCl (Tramadol Hcl 50 Mg Tablet) 25 mg PO Q6H PRN PRN Reason: Pain, Moderate(Pain Scale 4-6) Last Admin: 12/24/23 04:18 Dose: 25 mg Documented By: THEODORE Vitamin D (Cholecalciferol (Vitamin D3) 25 Mcg Tablet) 50 mcg PO SUTUTH@0900 [facility] Labs 12/24/23 05:59 12/24/23 05:59 Labs: Laboratory Results - last 24 hr 12/23/23 12/24/23 22:37 05:59 MCV 95.6 94.8 MCH 32.6 32.4 MCHC 34.1 34.2 RDW 13.2 13.1 Plt Count 164 146 L MPV 9.4 9.3 L Immature Gran % (Auto) 0.3 0.2 Neut % (Auto) 34.6 L 37.4 L Lymph % (Auto) 55.9 H 52.2 H White % (Auto) 5.9 7.0 Eos % (Auto) 2.6 2.7 Baso % (Auto) 0.7 0.5 Lymph # (Auto) 6.0 H 4.6 White # (Auto) 0.6 0.6 Eos # (Auto) 0.3 0.2 Baso # (Auto) 0.1 0.0 Abs Immat Gran (auto) 0.03 0.02 Absolute Neuts (auto) 3.7 3.3 Absolute Nucleated RBC 0.000 0.000 Nucleated RBC % (auto) 0.0 0.0 Smear Tech's Comments VERIFIED Anion Gap 13 14 Estim Creat Clear Calc 67.4 70.0 Estimated GFR > 60 > 60 Random Glucose 100 96 Calcium 9.8 9.2 D Total Bilirubin 0.8 AST 27 ALT 17 Alkaline Phosphatase 62 Total Protein 7.2 Albumin 4.5 Lipase 14 Urine Color Yellow Urine Appearance Clear Urine pH 7.5 Ur Specific [place] 1.010 Urine Protein Negative Urine Glucose (UA) Negative Urine Ketones Negative Urine Blood Negative Urine Nitrite Negative Ur Leukocyte Esterase Negative Assessment and Plan (1) Fracture of rib: Status: Acute Plan 78-year-old male with pertinent history of BPH, history of VFib cardiac arrest status post defibrillator, hypothyroidism, coronary artery disease status post stent, CLL who presents to the emergency department for evaluation of chest pain after a fall. Nondisplaced posterior left lower rib fractures due to mechanical fall: still has significant pain pain control- iv morphine ,po tylenol/trazodone /lidocaine patch,oob, bowel regimen, Repeat chest x-ray in the morning/pending. Initiating incentive spirometry throacic surgery consult pt eval BPH: Continue Flomax and finasteride CAD: On aspirin and statin Hypothyroidism: On Synthroid DVT prophylaxis: [facility]ox [facility] : Multiple rib fractures-significant pain, need IV pain medications for pain control, also further workup rib fracture and follow- up with x-ray as well as thoracic surgeon evaluation. Quality Stroke Does the patient have a stroke diagnosis?: No VTE Prior VTE?: No VTE Risk Level:: Medical - moderate - high VTE Device Contraindication: Treatment Not Indicated VTE Drug Contraindication: N/A - Med Ordered
[2023-12-24 13:50] VITALS: BP 122/64; PULSE 72; RESP 17; TEMP 36.8; O2SAT 99
[2023-12-24] MEDS: Lidocaine 4 % Patch ADH..PATCH 1 PATCH TRANSDERMA (14:00)
--- NOTE | 2023-12-24 14:11 | HO.THORCONS ---
History of Present Illness Consult details Consult date: 12/24/23 Narrative: Thoracic consult for evaluation of patient is status post trauma with multiple left posterior rib fractures. Patient had extensive workup in the ER including CT scan which demonstrated no evidence of pneumothorax or splenic injury. At present, patient is in [id number] distress which is relieved with analgesia. He is able to ambulate. He is tolerating his diet. He has no acute respiratory or abdominal symptoms. Chart was reviewed and patient evaluated. Status post left sided permanent pacemaker placement. No anticoagulation meds listed on med list H&H stable. A.m. chest x-ray no evidence of pneumothorax PMFSH Past Medical History Medical History Laceration of right index finger w/o foreign body w/o damage to nail Medicare annual wellness visit, initial Medicare annual wellness visit, initial Skin cancer, basal cell Hypothyroidism Hypercholesterolemia Hx of cardiac arrest CAD (coronary artery disease) CLL (chronic lymphocytic leukemia) Family History Family History Mother Breast cancer Father Aneurysm Sister Pancreatic cancer Daughter Thyroid cancer Surgical History Surgical History Hx of colonoscopy History of bilateral knee arthroplasty Hx of thyroidectomy Social History Social History Household Members: Family Housing: House Alcohol intake: current Alcohol intake frequency: a few times a week Alcohol type: beer Patient Tobacco Use Status: Never used Tobacco e-Cigarette/Vaping Use: Never Used Second Hand Smoke Exposure: No Advance Directives: No Advance Directives Information Provided: No Do you have a plan to hurt others: No Plan service: No Current occupational status: retired Current occupational exposures/hazards: No Cognitive needs: No Hearing needs: Yes Vision needs: Yes Meds Allergies Allergy/AdvReac Type Severity Reaction Status Date / Time Penicillins [PENICILLINS] Allergy Mild HIVES Verified 12/23/23 16:24 Active Medications: Current Medications Acetaminophen (Acetaminophen 325 Mg Tablet) 975 mg PO Q6H [facility] Ascorbic Acid (Ascorbic Acid 500 Mg Tablet) 1,000 mg PO SUTUTH@0900 [facility] Aspirin (Aspirin Enteric Coated 81 Mg Tablet.) 162 mg PO DAILY [facility] Atorvastatin Calcium (Atorvastatin Calcium 80 Mg Tablet) 80 mg PO BEDTIME [facility] Calcium Carbonate (Calcium Carbonate 750 Mg Tab.Chew) 750 mg PO Q4H PRN PRN Reason: Heartburn Docusate Sodium (Docusate Sodium 100 Mg Capsule) 100 mg PO BID [facility] Last Admin: 12/24/23 09:01 Dose: 100 mg Ferrous Sulfate (Ferrous Sulfate 324 Mg Tablet.Dr) 324 mg PO TUTHSA@0900 [facility] Finasteride (Finasteride 5 Mg Tablet) 5 mg PO DAILY [facility] Isosorbide Mononitrate (Isosorbide Mononitrate 30 Mg Tab.Er.24h) 15 mg PO DAILY [facility]; Protocol Lactulose (Lactulose 20 Gm/30 Ml Solution) 10 gm PO DAILY PRN PRN Reason: laxative effect Levothyroxine Sodium (Levothyroxine Sodium 112 Mcg Tablet) 112 mcg PO DAILY@0600 [facility] Lidocaine (Lidocaine 4 % Patch Adh..Patch) 1 patch TRANSDERMA DAILY [facility]; Protocol Last Admin: 12/24/23 14:00 Dose: 1 patch Lisinopril (Lisinopril 2.5 Mg Tablet) 2.5 mg PO DAILY [facility]; Protocol Magnesium Hydroxide (Milk Of Magnesia 30 Ml Oral.Susp) 30 ml PO DAILY PRN PRN Reason: Constipation Melatonin (Melatonin 3 Mg Tablet) 6 mg PO BEDTIME PRN PRN Reason: Insomnia Morphine Sulfate (Morphine Sulfate 4 Mg/Ml Cartridge) 2 mg IVPUSH Q4H PRN; Protocol PRN Reason: Pain, Severe (Pain Scale 7-10) Multivitamins/Vitamin C (Multivitamin Tablet) 1 tab PO Q14D [facility] Nitroglycerin (Nitroglycerin 0.4 Mg Tab.Subl) 0.4 mg SUBLINGUAL Q5M PRN PRN Reason: chest pain Non-Formulary Medication (Mexiletine) 200 mg PO BID [facility] Ondansetron HCl (Ondansetron Hcl 4 Mg/2 Ml Vial) 4 mg IVPUSH Q8H PRN PRN Reason: Nausea and Vomiting Polyethylene Glycol (Polyethylene Glycol 3350 17 Gm Powd.Pack) 17 gm PO DAILY [facility] Last Admin: 12/24/23 09:01 Dose: 17 gm Ranolazine (Ranolazine 500 Mg Tab.Er.12h) 500 mg PO BID [facility] Sodium Chloride (0.9 % Sodium Chloride Flush 3 Ml Syringe) 3 ml IVFLUSH QSHIFT [facility] Last Admin: 12/24/23 08:10 Dose: 3 ml Tamsulosin HCl (Tamsulosin Hcl 0.4 Mg Capsule) 0.4 mg PO DAILY [facility] Tramadol HCl (Tramadol Hcl 50 Mg Tablet) 25 mg PO Q6H PRN PRN Reason: Pain, Moderate(Pain Scale 4-6) Last Admin: 12/24/23 04:18 Dose: 25 mg Vitamin D (Cholecalciferol (Vitamin D3) 25 Mcg Tablet) 50 mcg PO SUTUTH@0900 [facility] Home Medications ?Medication ?Instructions ?Recorded ?Confirmed ?Last Taken ?Type mexiletine 200 mg capsule 200 mg PO BID 03/03/20 12/24/23 12/23/23 History ranolazine 500 mg tablet,extended 500 mg PO BID 03/03/20 12/24/23 12/23/23 History release,12 hr alpha lipoic acid 200 mg tablet 200 mg PO MOWEFR@89903/04/20 12/24/23 12/23/23 History ascorbic acid (vitamin C) 1,000 mg 1 g PO SUTUTH@0903/04/20 12/24/23 12/22/23 History tablet (Vitamin C) cholecalciferol (vitamin D3) 50 50 mcg PO SUTUTH@0903/04/20 12/24/23 12/22/23 History mcg (2,000 unit) tablet (Vitamin D3) coenzyme Q10 100 mg capsule 200 mg PO DAILY 03/04/20 12/24/23 12/23/23 History (CoQ-10) magnesium aspart,citrate,oxide 400 mg PO SUTUTH@0900 03/04/20 12/24/23 12/22/23 History vitamin B complex (Complex B-100 1 tab PO Q2W 12/20/23 12/24/23 Unknown History tablet,extended release) aspirin 81 mg tablet,delayed 162 mg PO DAILY 12/24/23 12/24/23 12/23/23 History release ferrous sulfate 324 mg (65 mg 324 mg PO TUTHSA@89912/24/23 12/24/23 12/22/23 History iron) tablet,delayed release levothyroxine 112 mcg tablet 112 mcg PO DAILY@0600 12/24/23 12/24/23 12/23/23 History lisinopril 2.5 mg tablet 2.5 mg PO DAILY 12/24/23 12/24/23 12/23/23 History rosuvastatin 20 mg tablet 20 mg PO BEDTIME 12/24/23 12/24/23 12/23/23 History vit C 250 mg-vit E 90 mg-zinc 40 1 tab PO BID 12/24/23 12/24/23 12/23/23 History mg-copper 1 [id number] capsule (PreserVision AREDS-2) Physical Exam Vital Signs: Vital Signs: Last Vital Signs Temp 98.3 F 12/24/23 13:50 Pulse 72 12/24/23 13:50 Resp 17 12/24/23 13:50 BP 122/64 12/24/23 13:50 Pulse Ox 99 12/24/23 13:50 O2 Del Method Room Air 12/24/23 13:50 BMI result Body Mass Index 25.6 Chest: Other: Chest breath sounds bilaterally, left costal posterior tenderness at the site of trauma. No obvious ecchymosis or hematoma. GI: Other: Abdomen is soft, benign Results Labs 12/24/23 05:59 12/24/23 05:59 Labs: Abnormal lab results 12/23/23 12/24/23 Range/Units 22:37 05:59 RBC 4.33 L 4.04 L (4.60-5.80) X10*6/uL Hgb 13.1 L (14.0-18.0) g/dl Hct 41.4 L 38.3 L (42.0-52.0) % Plt Count 146 L (160-400) X10*3/uL MPV 9.3 L (9.4-12.4) fL Neut % (Auto) 34.6 L 37.4 L (45-73) % Lymph % (Auto) 55.9 H 52.2 H (20-40) % Lymph # (Auto) 6.0 H (1.2-4.9) X10*3/uL Short CBC 12/23/23 12/24/23 Range/Units 22:37 05:59 WBC 10.7 8.8 (4.8-10.8) X10*3/uL Hgb 14.1 13.1 L (14.0-18.0) g/dl Hct 41.4 L 38.3 L (42.0-52.0) % Plt Count 164 146 L (160-400) X10*3/uL BMP 12/23/23 12/24/23 22:37 05:59 Sodium 141 141 Potassium 4.0 3.8 Chloride 106 107 Carbon Dioxide 26 24 BUN 10 9 Creatinine 0.83 0.80 Calcium 9.8 9.2 D Liver Function 12/23/23 Range/Units 22:37 Total Bilirubin 0.8 (0.0-1.0) mg/dL AST 27 (5-37) U/L ALT 17 (0-40) U/L Alkaline Phosphatase 62 (39-117) U/L Albumin 4.5 (3.5-5.0) g/dL Urine 12/23/23 Range/Units 22:37 Urine Color Yellow Urine Appearance Clear Urine pH 7.5 (5.0-9.0) Ur Specific [place] 1.010 (1.005-1.025) Urine Protein Negative (Neg-Trace) mg/dL Urine Glucose (UA) Negative (Negative) mg/dL All other labs normal. Assessment and Plan (1) Fracture of rib: Qualifiers: Encounter type: initial encounter Fracture type: closed Laterality: left Rib fracture type: multiple ribs Qualified Code(s): S22.42XA - Multiple fractures of ribs, left side, initial encounter for closed fracture Status: Acute Plan At present, no acute surgical issues. Patient is encouraged to do incentive spirometry, out of bed, analgesia as needed. Can follow-up with patient as an outpatient when discharged. Procedures Date of Service Date of Service: 12/24/23
[2023-12-24] MEDS: Acetaminophen 325 MG TABLET 975 MG PO ×2 (14:21→19:28)
[2023-12-24] MEDS: Multivitamin TABLET 1 TAB PO (14:25)
[2023-12-24 14:43] VITALS: BMI 25.0
[2023-12-24 14:45] VITALS: BP 101/63; PULSE 65; RESP 16; TEMP 36.2; O2SAT 99
[2023-12-24] MEDS: MEXILETINE 200 MG 200 EACH PO (16:45)
[2023-12-24 19:11] VITALS: BP 109/60; PULSE 66; RESP 14; TEMP 37.1; O2SAT 96
[2023-12-24] MEDS: Ranolazine 500 MG TAB.ER.12H PO (20:56)
[2023-12-25] VITALS (9 sets, daily range): BP systolic 72–177; BP diastolic 50–95; PULSE 63–73; RESP 16–18; TEMP 36.1–36.8; O2SAT 97–100
[2023-12-25] MEDS: Levothyroxine Sodium 112 MCG TABLET PO (06:24)
[2023-12-25] MEDS: lisinopriL 2.5 MG TABLET PO (07:46)
[2023-12-25] MEDS: Isosorbide Mononitrate 30 MG TAB.ER.24H 15 MG PO (07:47)
[2023-12-25] MEDS: Aspirin Enteric Coated 81 MG TABLET.DR 162 MG PO (07:50)
[2023-12-25] MEDS: Tamsulosin HCL 0.4 MG CAPSULE PO (07:50)
[2023-12-25] MEDS: Docusate Sodium 100 MG CAPSULE PO ×2 (07:50→21:39)
[2023-12-25] MEDS: Lidocaine 4 % Patch ADH..PATCH 1 PATCH TRANSDERMA (07:51)
[2023-12-25] MEDS: Finasteride 5 MG TABLET PO (07:51)
[2023-12-25] MEDS: MEXILETINE 200 MG 200 EACH PO ×2 (07:53→21:38)
[2023-12-25] MEDS: 0.9 % Sodium Chloride Flush 3 ML SYRINGE IVFLUSH (08:41)
[2023-12-25] MEDS: Ranolazine 500 MG TAB.ER.12H PO ×2 (08:43→21:39)
[2023-12-25] MEDS: Ascorbic Acid 500 MG TABLET 1000 MG PO (08:48)
--- NOTE | 2023-12-25 10:41 | PC.NURSE ---
Pt. stated that he had multiple falls in the last 6 month, he is alert and oriented times 4. Refused all high fall risk protocols, stated he can walk independently, steady gait observed when he walk. Education provided about hospital environment and safety. Call murray within reach and pt. had been educated about use.
--- NOTE | 2023-12-25 11:05 | HO.PM.IMPN ---
Subjective Subjective Date of Service: 12/25/23 Interval History: multiple rib fractures hypotension episose Review of Systems pain somewhat improving no sob Physical Exam Vital Signs: Vital Signs: Last Vital Signs Temp 97.1 F 12/25/23 08:00 Pulse 73 12/25/23 08:00 Resp 16 12/25/23 08:00 BP 177/95 H 12/25/23 07:47 Pulse Ox 99 12/25/23 08:00 O2 Del Method CPAP 12/25/23 08:00 BMI result Body Mass Index 25.0 Appearance: Alert.? Oriented X3. cvs: rrr, [id number] , no murmur res: clear to auscultation ,no rhonchii or wheezing abd: no rebound or guarding ,nt, bs present. ext pulses present , no cyanosis . neuro: axo3 , nonfocal. Objective Data Active Medications Acetaminophen (Acetaminophen 325 Mg Tablet) 975 mg PO Q6H [facility] Last Admin: 12/25/23 08:01 Dose: Not Given Documented By: FARZAD Non-Admin Reason: Patient Refused Ascorbic Acid (Ascorbic Acid 500 Mg Tablet) 1,000 mg PO SUTUTH@0900 [facility] Last Admin: 12/25/23 08:48 Dose: 1,000 mg Documented By: FARZAD Aspirin (Aspirin Enteric Coated 81 Mg Tablet.) 162 mg PO DAILY [facility] Last Admin: 12/25/23 07:50 Dose: 162 mg Documented By: FARZAD Atorvastatin Calcium (Atorvastatin Calcium 80 Mg Tablet) 80 mg PO BEDTIME [facility] Last Admin: 12/24/23 21:01 Dose: Not Given Documented By: ROZ Non-Admin Reason: pt refused, takes in am Calcium Carbonate (Calcium Carbonate 750 Mg Tab.Chew) 750 mg PO Q4H PRN PRN Reason: Heartburn Docusate Sodium (Docusate Sodium 100 Mg Capsule) 100 mg PO BID [facility] Last Admin: 12/25/23 07:50 Dose: 100 mg Documented By: FARZAD Ferrous Sulfate (Ferrous Sulfate 324 Mg Tablet.) 324 mg PO TUTHSA@0900 [facility] Finasteride (Finasteride 5 Mg Tablet) 5 mg PO DAILY [facility] Last Admin: 12/25/23 07:51 Dose: 5 mg Documented By: FARZAD Isosorbide Mononitrate (Isosorbide Mononitrate 30 Mg Tab.Er.24h) 15 mg PO DAILY [facility]; Protocol Last Admin: 12/25/23 07:47 Dose: 15 mg Documented By: FARZAD Lactulose (Lactulose 20 Gm/30 Ml Solution) 10 gm PO DAILY PRN PRN Reason: laxative effect Levothyroxine Sodium (Levothyroxine Sodium 112 Mcg Tablet) 112 mcg PO DAILY@0600 [facility] Last Admin: 12/25/23 06:24 Dose: 112 mcg Documented By: ROZ Lidocaine (Lidocaine 4 % Patch Adh..Patch) 1 patch TRANSDERMA DAILY [facility]; Protocol Last Admin: 12/25/23 07:51 Dose: 1 patch Documented By: FARZAD Lisinopril (Lisinopril 2.5 Mg Tablet) 2.5 mg PO DAILY [facility]; Protocol Last Admin: 12/25/23 07:46 Dose: 2.5 mg Documented By: FARZAD Magnesium Hydroxide (Milk Of Magnesia 30 Ml Oral.Susp) 30 ml PO DAILY PRN PRN Reason: Constipation Melatonin (Melatonin 3 Mg Tablet) 6 mg PO BEDTIME PRN PRN Reason: Insomnia Morphine Sulfate (Morphine Sulfate 4 Mg/Ml Cartridge) 2 mg IVPUSH Q4H PRN; Protocol PRN Reason: Pain, Severe (Pain Scale 7-10) Multivitamins/Vitamin C (Multivitamin Tablet) 1 tab PO Q14D [facility] Last Admin: 12/24/23 14:25 Dose: 1 tab Documented By: FARZAD Nitroglycerin (Nitroglycerin 0.4 Mg Tab.Subl) 0.4 mg SUBLINGUAL Q5M PRN PRN Reason: chest pain Pt Own (Mexiletine (200 Mg Capsule)) 200 mg PO BID [facility] Last Admin: 12/25/23 07:53 Dose: 200 mg Documented By: FARZAD Ondansetron HCl (Ondansetron Hcl 4 Mg/2 Ml Vial) 4 mg IVPUSH Q8H PRN PRN Reason: Nausea and Vomiting Oxycodone HCl (Oxycodone Hcl Immed Release 5 Mg Tablet) 5 mg PO Q6H PRN PRN Reason: Pain, Mild (Pain Scale 1-3) Polyethylene Glycol (Polyethylene Glycol 3350 17 Gm Powd.Pack) 17 gm PO DAILY [facility] Last Admin: 12/25/23 08:01 Dose: Not Given Documented By: FARZAD Non-Admin Reason: Patient Refused Ranolazine (Ranolazine 500 Mg Tab.Er.12h) 500 mg PO BID [facility] Last Admin: 12/25/23 08:43 Dose: 500 mg Documented By: FARZAD Sodium Chloride (0.9 % Sodium Chloride Flush 3 Ml Syringe) 3 ml IVFLUSH QSHIFT [facility] Last Admin: 12/25/23 08:41 Dose: 3 ml Documented By: FARZAD Tamsulosin HCl (Tamsulosin Hcl 0.4 Mg Capsule) 0.4 mg PO DAILY [facility] Last Admin: 12/25/23 07:50 Dose: 0.4 mg Documented By: FARZAD Tramadol HCl (Tramadol Hcl 50 Mg Tablet) 25 mg PO Q6H PRN PRN Reason: Pain, Moderate(Pain Scale 4-6) Last Admin: 12/24/23 04:18 Dose: 25 mg Documented By: THEODORE Vitamin D (Cholecalciferol (Vitamin D3) 25 Mcg Tablet) 50 mcg PO SUTUTH@0900 [facility] Last Admin: 12/25/23 08:43 Dose: Not Given Documented By: FARZAD Non-Admin Reason: Patient Refused Labs 12/24/23 05:59 12/24/23 05:59 Assessment and Plan (1) Fracture of rib: Status: Acute Plan 78-year-old male with pertinent history of BPH, history of VFib cardiac arrest status post defibrillator, hypothyroidism, coronary artery disease status post stent, CLL who presents to the emergency department for evaluation of chest pain after a fall. Nondisplaced posterior left lower rib fractures due to mechanical fall: still has significant pain pain control- iv morphine ,po tylenol/trazodone /lidocaine patch,oob, bowel regimen, Repeat chest x-ray in the morning/pending. Initiating incentive spirometry throacic surgery consult pt eval BPH: Continue Flomax and finasteride CAD: On aspirin and statin Hypothyroidism: On Synthroid Hypotension episode: Patient says that he did not eat this since morning and was not hydrating also. He ate lunch and afterwards felt lightheadedness, blood pressure on lower side. Patient denies any chest pain or shortness of breath Had some lightheadedness Also blood pressure medications might be contributing Hold BP meds Normal saline bolus 1 L Telemetry patient has history of VFib/has defibrillator DVT prophylaxis: Lovenox Full code Onin hospitisation need : Multiple rib fractures-significant pain, need IV pain medications for pain control, also further workup rib fracture and follow-up with x-ray as well as thoracic surgeon evaluation. Quality Stroke Does the patient have a stroke diagnosis?: No VTE Prior VTE?: No VTE Risk Level:: Medical - moderate - high VTE Device Contraindication: Treatment Not Indicated VTE Drug Contraindication: N/A - Med Ordered
[2023-12-25] MEDS: 0.9 % Sodium Chloride 1,000 ML 999 ML IVCONT (14:13)
[2023-12-25] MEDS: Acetaminophen 325 MG TABLET 975 MG PO ×2 (14:18→21:38)
--- NOTE | 2023-12-25 14:25 | PC.NURSE ---
Pt. BP 72/50, hr 63, 97% RA stated he feels lightheaded, hx of vfib with defibrillator. Admitted for left side multiple rib fractures, MD order to med [facility] for close monitoring.
[2023-12-25] MEDS: 0.9 % Sodium Chloride 1,000 ML 100 ML IVCONT (15:37)
[2023-12-25] MEDS: Atorvastatin Calcium 80 MG TABLET PO (21:39)
[2023-12-26] VITALS: BP 161/87; PULSE 67; RESP 20; O2SAT 99
[2023-12-26] MEDS: 0.9 % Sodium Chloride Flush 3 ML SYRINGE IVFLUSH
[2023-12-26 03:29] VITALS: BP 137/84; PULSE 65; RESP 20; TEMP 36.2; O2SAT 98
[2023-12-26] MEDS: Acetaminophen 325 MG TABLET 975 MG PO (06:48)
[2023-12-26] MEDS: Levothyroxine Sodium 112 MCG TABLET PO (06:49)
[2023-12-26 07:08] VITALS: BP 138/82; PULSE 67; RESP 17; TEMP 36.2; O2SAT 97
[2023-12-26] MEDS: Ranolazine 500 MG TAB.ER.12H PO (08:38)
[2023-12-26] MEDS: Aspirin Enteric Coated 81 MG TABLET.DR 162 MG PO (08:38)
[2023-12-26] MEDS: MEXILETINE 200 MG 200 EACH PO (08:38)
[2023-12-26] MEDS: Tamsulosin HCL 0.4 MG CAPSULE PO (08:38)
[2023-12-26] MEDS: Lidocaine 4 % Patch ADH..PATCH 1 PATCH TRANSDERMA (08:38)
[2023-12-26] MEDS: Docusate Sodium 100 MG CAPSULE PO (08:38)
[2023-12-26] MEDS: Finasteride 5 MG TABLET PO (08:38)
--- NOTE | 2023-12-26 08:39 | MHC.CM.PN ---
CM met with Patient at bedside and assisted him with the completion of a HCP; he named his Daughter/Angella as his Agent. CM addressed IMM with Patient, providing him with the original and a copy has been placed on the chart. Patient lives in a house with Angella and he required no services nor DME [employer]. Home/self care is the goal and CM has initiated and will follow for dc planning.PCP/ESTATE ATTORNEY is Eitan Ocampo.
[2023-12-26 09:17] VITALS: BP 134/76; PULSE 86
[2023-12-26 10:00] VITALS: BP 134/76; PULSE 86
[2023-12-26 10:27] VITALS: BP 128/72; BP 142/80; PULSE 82; PULSE 92
--- NOTE | 2023-12-26 10:33 | P.DS_ITS ---
DS: Providers Provider Date of Service: 12/26/23 Date of admission: 12/24/23 11:59 Date of discharge: 12/26/23 Primary care physician: Eitan Ocampo PA-C Consults: 12/23/23 23:36 Consult to Thoracic Surgery Routine Consulting Provider: Saul Triplett Reason for consultation: rib fracture Attending physician on discharge: Abiel Borrero Discharging clinician: Abiel Borrero DS: Diagnosis Discharge Diagnosis (1) Fracture of rib: Status: Acute DS: Summary Hospital Course Hospital Course: 78-year-old male with pertinent history of BPH, history of VFib cardiac arrest status post defibrillator, hypothyroidism, coronary artery disease status post stent, CLL who presents to the emergency department for evaluation of chest pain after a fall. Patient states he fell on his steps in front of the house 2 days prior to presentation. Patient has been having chest pain which is not relieved with Tylenol and hence decided to come to the ER. Denies dyspnea, orthopnea or PND. Denies loss of consciousness prior to the fall. No chest pain or palpitations prior to the fall. No rhythmic jerking movement of extremities. States he missed a step on the staircase and fell. Did not hit his head. No fever, chills, shortness of breath, palpitations, abdominal pain, changes in urinary or bowel habits. In the emergency department, nondisplaced multiple left lower rib fractures. Thoracic surgery was consulted who requested admission for observation. Hospital course: Patient was admitted to the hospitalist status post mechanical fall subsequently found to have multiple rib fracture on chest imaging-admitted for pain control and respiratory monitoring: Patient seems to be improved with pain control,seems better pain control now , continue tylenol ,added lidocaine patch, incentive spirometry ,mobility. Transient episode of hypotension and orthostasis probably related to decreased p.o. intake, dehydration: Seems to be improved significantly with IV fluids, holding loop blood pressure medications. Patient is now asymptomatic, telemetry seems fine, patient advise strongly for p.o. hydration and adequate intake . Continue to monitor blood pressure at home, Mark stocking as needed. plan: mark stockings ,walking precautions slowly htn-blood pressure flactuating,hold lisinopril ,moniter bp if persistently above 140mmhg, may consider low dose captopril considering orthostatic hypotension. follow up with pcp Above management discussed with the patient, thoracic surgery in detail length, time spent 40 minute. Time Attestation Total time managing care of this patient today: 40 mintues. Discharge Coordination Time (in mins): 40 min Quality: Safe Use of Opioids Does Pt have an Active Cancer Diagnosis on the Problem List?: No Quality: Stroke Does the patient have a stroke diagnosis?: No Physical Exam Vital Signs: Vital Signs: Last Vital Signs Temp 97.1 F 12/26/23 07:08 Pulse 92 12/26/23 10:27 Resp 17 12/26/23 07:08 BP 128/72 12/26/23 10:27 Pulse Ox 97 12/26/23 07:08 O2 Del Method Room Air 12/26/23 07:08 BMI result Body Mass Index 25.0 Discharge Plan Discharge Anticipated Discharge Date/Time: 12/26/23 10:24 Patient Disposition: Home Health Service Discharge Diagnosis: Multiple rib fractures, episode of hypotension. Referrals: Janet MORALES [Outside] - 1 Week Eitan Ocampo PA-C [Primary Care Provider] - 1 Week Saul Triplett MD [Physician] - 1 Week Discharge Medications: New (DME) T.E.D. Knee [id number] Misc See Rx Instructions .ROUTE .MEDSUPPLY Qty: 12 0RF Rx Instructions: As directed Continued finasteride 5 mg tablet 5 mg PO DAILY Qty: 90 2RF (DME) blood pressure test kit-medium Kit See Rx Instructions .Route Qty: 1 0RF Rx Instructions: As directed lactulose 10 gram/15 mL (15 mL) solution 10 g PO DAILY PRN (Reason: laxative effect) 30 Days Qty: 600 3RF tamsulosin 0.4 mg capsule 0.4 mg PO DAILY Qty: 90 2RF nitroglycerin 0.4 mg tablet, sublingual 0.4 mg sublingual Q5M PRN (Reason: chest pain) 15 Days Qty: 30 0RF Rx Instructions: do not exceed 3 doses per episode coenzyme Q10 [CoQ-10] 100 mg Capsule 200 mg PO DAILY ascorbic acid (vitamin C) [Vitamin C] 1,000 mg Tablet 1 g PO SUTUTH@0900 cholecalciferol (vitamin D3) [Vitamin D3] 50 mcg (2,000 unit) Tablet 50 mcg PO SUTUTH@0900 alpha lipoic acid 200 mg Tablet 200 mg PO MOWEFR@0900 magnesium aspart,citrate,oxide 400 mg magnesium Capsule 400 mg PO SUTUTH@0900 levothyroxine 112 mcg tablet 112 mcg PO DAILY@0600 rosuvastatin 20 mg tablet 20 mg PO BEDTIME aspirin 81 mg Tablet,Delayed Release (Dr/Ec) 162 mg PO DAILY ferrous sulfate 324 mg (65 mg iron) Tablet,Delayed Release (Dr/Ec) 324 mg PO TUTHSA@0900 PreserVision AREDS-2 250-90-40-1 mg Capsule 1 tab PO BID mexiletine 200 mg capsule 200 mg PO BID ranolazine 500 mg tablet extended release 12 hr 500 mg PO BID isosorbide mononitrate 30 mg tablet extended release 24 hr 15 mg PO DAILY 90 Days Qty: 45 2RF Complex B-100 Tablet Extended Release 1 tab PO Q2W acetaminophen 500 mg capsule 1,000 mg PO Q6H PRN (Reason: pain) Qty: 30 0RF Discontinued lisinopril 2.5 mg Tablet 2.5 mg PO DAILY Discharge Orders: Discharge Order (Routine); Ordered 12/26/23 Ordered By: Abiel Borrero Diet: Advance to usual diet Activity on Discharge: No heavy lifting Stand Alone Forms: Patient Portal Discharge page Print Language: Armenian Activity Restrictions/Additional Instructions: No strenuous activities Using incentive spirometer, ambulate as tolerated. No strenuous activities. Care Plan Goals: Patient was admitted to the hospitalist status post mechanical fall subsequently found to have multiple rib fracture on chest imaging-admitted for pain control and respiratory monitoring: Patient seems to be improved with pain control,seems better pain control now , continue tylenol ,added lidocaine patch, incentive spirometry ,mobility. Transient episode of hypotension and orthostasis probably related to decreased p.o. intake, dehydration: Seems to be improved significantly with IV fluids, holding loop blood pressure medications. Patient is now asymptomatic, telemetry seems fine, patient advise strongly for p.o. hydration and adequate intake . Continue to monitor blood pressure at home, Mark stocking as needed. Above management discussed with the patient, thoracic surgery in detail length, time spent 40 minute. Health Concerns: As above. mark stockings hold lisinopril ,moniter bp if persistently above 140mmhg, consider resuming consider outpatient captopril. follow up with pcp and thoracic outapatient. Plan of Treatment: As above. Assessment: As above.
--- NOTE | 2023-12-26 10:49 | MHC.CM.PN ---
Addendum entered by Anna Pennington 12/26/23 12:20: Patient has been medically cleared for dc today, with services. A referral has been made to [facility], who is aware of today's dc. Original Note: Patient has been medically cleared for dc to home today, self care.
--- NOTE | 2023-12-26 11:21 | W.MHC.F2F ---
Service Date Service Date: 12/26/23 Encounter Date of encounter: 12/26/23 Encounter: multiple rib fractures ,orthostatic hypotension Reasons for Services Signs and symptoms assessed: moniter bp ,pain control Reason for jail: CV/CP assess and/or care, medication management, medication treatment and teach disease management MD Overseeing Care: Eitan Ocampo Homebound: Leaving the home is medically contraindicated at this time without the asist of a device and/or another person due th the listed conditions above and below. Reason homebound: weakness related to hospital stay Homebound supporting statement: Patient is generalized weak post hospitalization also has orthostatic hypotension, multiple rib fracture-need help with going to appointments, blood pressure monitoring and disease management. Certification: Based on the above findings, I certify that this patient is confined to the home and needs intermittent jail care, physical therapy and/or speech therapy, or continues to need occupational therapy. The patient is under my care, and I have initiated the establishment of the plan of care. The patient will be followed by a physician who will periodically review the plan of care. Time Spent With Patient Time: Total time managing care of this patient today ____ minutes.
== END 2023-12-26 13:45 | disposition home health service (06) | DRG 184 ==
LOC: HO.ED 23:03 → HO.EDOVER 23:25 → HO.S3 12-24 13:03 → HO.IMC 12-25 14:20
PROVIDERS: Physician Assistant; Admitting Provider Student in an Organized Health Care Education/Training Program; Emergency Provider Emergency Medicine Emergency Medical Services; PCP Physician Assistant; Visit Provider Internal Medicine
DX: S22.42XA Multiple fractures of ribs, left side, initial encounter for closed fracture (principal); C91.10 Chronic lymphocytic leukemia of B-cell type not having achieved remission; I25.10 Atherosclerotic heart disease of native coronary artery without angina pectoris; I95.1 Orthostatic hypotension; E03.9 Hypothyroidism, unspecified; N40.0 Benign prostatic hyperplasia without lower urinary tract symptoms; E86.0 Dehydration; W19.XXXA Unspecified fall, initial encounter; Z95.810 Presence of automatic (implantable) cardiac defibrillator; Z95.5 Presence of coronary angioplasty implant and graft; Z86.74 Personal history of sudden cardiac arrest; Z79.82 Long term (current) use of aspirin; Z79.890 Hormone replacement therapy; Z79.899 Other long term (current) drug therapy
CPT/HCPCS: 36415; 71045; 71250; 80048; 80053; 81003; 83690; 85025; 93005; 97161; 99222; 99285

== ENCOUNTER → 2023-12-23 22:16 | Outpatient (BNV) | payer MEDICARE, OTHER, SELFPAY | PROVIDERS: Admitting Provider Student in an Organized Health Care Education/Training Program; Emergency Provider Emergency Medicine Emergency Medical Services; PCP Physician Assistant; Visit Provider Internal Medicine Cardiovascular Disease | DX: R94.31 Abnormal electrocardiogram [ECG] [EKG] (principal) | CPT/HCPCS: 93010 ==

== ENCOUNTER → 2023-12-23 23:22 | Outpatient (BNV) | payer MEDICARE, OTHER, SELFPAY | PROVIDERS: Admitting Provider Student in an Organized Health Care Education/Training Program; Emergency Provider Emergency Medicine Emergency Medical Services; PCP Physician Assistant; Visit Provider Student in an Organized Health Care Education/Training Program | DX: S22.42XA Multiple fractures of ribs, left side, initial encounter for closed fracture (principal) | CPT/HCPCS: 99222; 99231; 99239; G0180 ==

== ENCOUNTER → 2023-12-24 11:59 | Outpatient (BNV) | payer MEDICARE, OTHER, SELFPAY | PROVIDERS: Admitting Provider Student in an Organized Health Care Education/Training Program; Emergency Provider Emergency Medicine Emergency Medical Services; PCP Physician Assistant; Visit Provider Surgery | DX: S22.42XA Multiple fractures of ribs, left side, initial encounter for closed fracture (principal) | CPT/HCPCS: 99222 ==

== ENCOUNTER 2024-01-06 09:28 | Outpatient (AMB) | payer MEDICARE, OTHER, SELFPAY ==
--- NOTE | 2024-01-06 09:39 | MHC.PC.OV ---
Vital Signs 01/06/24 09:40 Height 5 ft 7 in Weight 164 lb 4 oz BMI 25.7 BP 120/74 Blood Pressure Location Lt brachial Position Sitting Pulse 80 Pulse Source Pulse Oximeter Pulse Oximetry (%) 98 Oxygen Delivery Method Room Air Intake Visit Reasons: HDG [facility] 12/26 Fall Associate Media Planner Required: No Accompanied by: Self / Same As Patient Allergies Penicillins [PENICILLINS] Allergy (Mild, Verified 01/06/24 09:44) HIVES Tobacco use date assessed: 12/05/23 Fall risk assessment: 1 Fall in past year Last assessed Fall Risk: 01/06/24 Dental Screening Dental Screen Date: 05/23/23 HPI HPI Comments History of Present Illness Details 78 y/o male patient who presents to the clinic for HDF. He was admitted at [facility] on 12/24/23 and sicharged home 12/26/23 for Dx: Multiple Ribs fracture from Rib 5 -10. His Lisinopril was discontinued in the hospital due to Orthostatic Hypotension. The review of his BP readings Log from home look good - without Lisinopril. Today reports feeling good, no concerns. [facility] Medical History Laceration of right index finger w/o foreign body w/o damage to nail Medicare annual wellness visit, initial Medicare annual wellness visit, initial Skin cancer, basal cell Hypothyroidism Hypercholesterolemia Hx of cardiac arrest CAD (coronary artery disease) CLL (chronic lymphocytic leukemia) Surgical History Hx of colonoscopy History of bilateral knee arthroplasty Hx of thyroidectomy Family History Mother Breast cancer Father Aneurysm Sister Pancreatic cancer Daughter Thyroid cancer Social History Household Members: Children Household Members Other:: daughter Housing: House Do you presently have visiting nurse or other home services: No Alcohol intake: current Alcohol intake frequency: a few times a week Alcohol type: beer Comment: Pt. refused all fall risk precautions Patient Tobacco Use Status: Never used Tobacco e-Cigarette/Vaping Use: Never Used Second Hand Smoke Exposure: No service: No Current occupational status: retired Current occupational exposures/hazards: No Cognitive needs: No Hearing needs: Yes Vision needs: Yes Questionnaire Thrive Questionnaire Date Thrive assessed: 12/26/23 KANNAN-7 AMB Questionnaire KANNAN-7 Date KANNAN - 7 assessed: 05/23/23 Source: Developed by Drs. Ted Davis, Isabella Hill, Mk Rawls and colleagues, with an educational david from [employer]. Review of Systems Const All systems reviewed & are unremarkable except as noted in HPI and below Physical exam (Primary Care) Vital Signs: Last Vital Signs Pulse 80 01/06/24 09:40 BP 120/74 01/06/24 09:40 Pulse Ox 98 01/06/24 09:40 Oxygen Delivery Method Room Air 01/06/24 09:40 BMI result Body Mass Index 25.7 Tobacco/Smoking Status: Tobacco use Status Tobacco use date assessed 12/05/23 01/06/24 09:41 Patient Tobacco Use Status Never used Tobacco 01/06/24 09:41 e-Cigarette/Vaping Use Never Used 01/06/24 09:41 Thrive Assessment: Date of Thrive Assessment Date Thrive assessed 12/26/23 01/06/24 09:41 Const General: cooperative, comfortable and no acute distress Orientation/consciousness: patient oriented x3 Resp Effort & Inspection: normal respiratory effort and able to speak in complete sentences Auscultation: clear to auscultation bilaterally Cardio Heart sounds: S1 normal heart sound present and S2 normal heart sound present Neuro General: patient oriented x3, gait normal and moves all extremities Psych Speech and movement: Normal speech and movement present Vital Signs: Last Vital Signs Pulse 80 01/06/24 09:40 BP 120/74 01/06/24 09:40 Pulse Ox 98 01/06/24 09:40 Oxygen Delivery Method Room Air 01/06/24 09:40 BMI result Body Mass Index 25.7 Const General: cooperative, comfortable and no acute distress Orientation/consciousness: patient oriented x3 Resp Effort & Inspection: normal respiratory effort and able to speak in complete sentences Auscultation: clear to auscultation bilaterally Cardio Heart sounds: S1 normal heart sound present and S2 normal heart sound present Neuro General: patient oriented x3, gait normal and moves all extremities Psych Speech and movement: Normal speech and movement present Assessment and Plan Assessment & Plan (1) Fracture of rib: Code(s): S22.39XA - Fracture of one rib, unspecified side, initial encounter for closed fracture Qualifiers: Encounter type: initial encounter Fracture type: closed Laterality: left Rib fracture type: multiple ribs Qualified Code(s): S22.42XA - Multiple fractures of ribs, left side, initial encounter for closed fracture Plan Continue on Acetaminophen PRN for Pain relief. He has an appointment with Thoracic Tuesday. Coding Level of Care Code Est Pt Level 4 (15649) Diagnoses Fracture of rib S22.42XA Encounter type: initial encounter Fracture type: closed Laterality: left Rib fracture type: multiple ribs Time Spent (min) 20 Comment Spent on reviewing hospital notes and Pt education
[2024-01-06 09:40] VITALS: BP 120/74; PULSE 80; O2SAT 98; BMI 25.7
== END 2024-01-06 11:30 | disposition home or self-care (01) ==
PROVIDERS: PCP Physician Assistant; Visit Provider Nurse Practitioner Family
DX: S22.42XA Multiple fractures of ribs, left side, initial encounter for closed fracture (principal)
CPT/HCPCS: 99214

== ENCOUNTER 2024-01-10 09:41 | Outpatient (AMB) | payer MEDICARE, OTHER, SELFPAY ==
--- NOTE | 2024-01-10 09:42 | MHC.OFFVIS ---
Vital Signs 01/10/24 09:49 Height 5 ft 7 in Weight 165 lb BMI 25.8 BP 129/81 Blood Pressure Location Rt brachial Position Sitting Pulse 73 Intake Visit Reasons: s/p Broken ribs Intake Note: Patient here to f/u ER visit on 12-23-2023. Chest CT showed Lt lower rib fractures. Patient c/o: pain on chest. denies SOB. Director Cardiology Required: No Accompanied by: Self / Same As Patient Allergies Penicillins [PENICILLINS] Allergy (Mild, Verified 01/10/24 09:47) HIVES HPI Comments Details: Patient was in for follow-up status post recent hospitalization for multiple left rib fractures. He is doing quite well. He has required minimal analgesia just in the form of Tylenol. He has no respiratory issues or complaints. He has been doing his incentive spirometry at home. He is slowly but steadily increasing his activity level. [facility] Medical History Laceration of right index finger w/o foreign body w/o damage to nail Medicare annual wellness visit, initial Medicare annual wellness visit, initial Skin cancer, basal cell Hypothyroidism Hypercholesterolemia Hx of cardiac arrest CAD (coronary artery disease) CLL (chronic lymphocytic leukemia) Surgical History Hx of colonoscopy History of bilateral knee arthroplasty Hx of thyroidectomy Family History Mother Breast cancer Father Aneurysm Sister Pancreatic cancer Daughter Thyroid cancer Social History Household Members: Children Household Members Other:: daughter Housing: House Do you presently have visiting nurse or other home services: No Alcohol intake: current Alcohol intake frequency: a few times a week Alcohol type: beer Comment: Pt. refused all fall risk precautions Patient Tobacco Use Status: Never used Tobacco e-Cigarette/Vaping Use: Never Used Second Hand Smoke Exposure: No service: No Current occupational status: retired Current occupational exposures/hazards: No Cognitive needs: No Hearing needs: Yes Vision needs: Yes Physical Exam Vital Signs: Last Vital Signs Pulse 73 01/10/24 09:49 BP 129/81 01/10/24 09:49 BMI result Body Mass Index 25.8 Chest Other: Chest breath sounds bilaterally. Mild left costal tenderness in the flank area but no obvious bruising. GI Other: Abdomen is soft, benign Assessment & Plan Assessment & Plan (1) Multiple rib fractures: Code(s): S22.49XA - Multiple fractures of ribs, unspecified side, initial encounter for closed fracture Category: Surgical Plan Patient is doing quite well status post multiple left rib fractures. He has been given local instructions including avoiding strenuous activities, and we will otherwise follow-up p.r.n.. All questions answered. Coding Level of Care Code Est Pt Level 4 (63112) Diagnoses Multiple rib fractures S22.49XA
[2024-01-10 09:49] VITALS: BP 129/81; PULSE 73; BMI 25.8
== END 2024-01-10 09:55 | disposition home or self-care (01) ==
PROVIDERS: PCP Physician Assistant; Visit Provider Surgery
DX: S22.42XA Multiple fractures of ribs, left side, initial encounter for closed fracture (principal)
CPT/HCPCS: 99213

== ENCOUNTER → 2024-01-10 09:41 | Outpatient (BNVA) | payer MEDICARE, OTHER, SELFPAY | PROVIDERS: PCP Physician Assistant; Visit Provider Surgery | DX: S22.42XA Multiple fractures of ribs, left side, initial encounter for closed fracture (principal); X58.XXXA Exposure to other specified factors, initial encounter; Y93.9 Activity, unspecified; Y92.9 Unspecified place or not applicable; Y99.9 Unspecified external cause status | CPT/HCPCS: 99212 ==

== ENCOUNTER 2024-03-19 10:39 | Outpatient (AMB) | payer MEDICARE, OTHER, SELFPAY ==
[2024-03-19 10:57] VITALS: BP 130/80; PULSE 72; O2SAT 98; BMI 27.1
--- NOTE | 2024-03-19 10:57 | AM.OFFWIN_ITS ---
Intake Vital Signs 03/19/24 10:57 Height 5 ft 7 in Weight 173 lb BMI 27.1 BP 130/80 Blood Pressure Location Rt brachial Position Sitting Pulse 72 Pulse Source Pulse Oximeter Pulse Oximetry (%) 98 Intake Visit Reasons: EP Might need stiches on his RT hand Intake Note: pt is here for cut on right hand, suspects he may need stitches. patient states he fell and cut his hand during the fall Patient Tobacco Use Status: Never used Tobacco Allergies Penicillins [PENICILLINS] Allergy (Mild, Verified 03/19/24 10:58) HIVES Do you need a note to return to daycare/school/sports/work: No HPI HPI Comments History of Present Illness Details Patient is a 78-year-old male complaining of a cut to his right palm which he sustained yesterday afternoon. He tells me he was cleaning his fish tank and he had taken all of the contents of the fish tank and put it aside. He fell and while he was falling, he put his hand on 1 of the pieces of ?fake wood that goes in the fish tank to break his fall and it cut open the base of his palm. He tells me he immediately irrigated it and put a triple antibiotic on it, he tells me it is not painful. He states that it has not leaked any fluid and he has not had any fevers. [facility] Medical History Laceration of right index finger w/o foreign body w/o damage to nail Medicare annual wellness visit, initial Medicare annual wellness visit, initial Skin cancer, basal cell Hypothyroidism Hypercholesterolemia Hx of cardiac arrest CAD (coronary artery disease) CLL (chronic lymphocytic leukemia) Surgical History Hx of colonoscopy History of bilateral knee arthroplasty Hx of thyroidectomy Family History Mother Breast cancer Father Aneurysm Sister Pancreatic cancer Daughter Thyroid cancer Social History Household Members: Children Household Members Other:: daughter Housing: House Do you presently have visiting nurse or other home services: No Alcohol intake: current Alcohol intake frequency: a few times a week Alcohol type: beer Comment: Pt. refused all fall risk precautions Patient Tobacco Use Status: Never used Tobacco e-Cigarette/Vaping Use: Never Used Second Hand Smoke Exposure: No service: No Current occupational status: retired Current occupational exposures/hazards: No Cognitive needs: No Hearing needs: Yes Vision needs: Yes Review of Systems Const All systems reviewed & are unremarkable except as noted in HPI and below Physical Exam Vital Signs: Last Vital Signs Pulse 72 03/19/24 10:57 BP 130/80 03/19/24 10:57 Pulse Ox 98 03/19/24 10:57 BMI result Body Mass Index 27.1 Const General: cooperative, healthy appearing, comfortable, no acute distress and well developed Orientation/consciousness: patient oriented x3 Limitations: no limitations HEENT Head: Yes normal to inspection Neck Neck: Yes normal visual inspection and Yes supple Neuro General: patient oriented x3 Extrem Other: Right hand, base of palm has a 2.5 cm superficial laceration, hand and all the digits are neurovascularly intact, full range of motion in the right hand and fingers. No signs of infection noted, no warmth, no ecchymosis, no edema. Office Procedures Laceration Repair Procedure Location: right base of 1st digit, 5 steri-strips& dermabond Text: After discussion of risk and benefits, verbal informed consent was obtained. The area was cleaned, prepped, and draped using sterile technique. The wound was debrided of any foreign material or devitalized tissue. Wound edges were approximated and closed using 5 steri-strips and dermabond. Standard wound dressing was applied. Wound care instructions were given. The patient tolerated the procedure well. The patient was instructed to return for increased redness or red streaking, pain, swelling, pus, fevers, chills, or any other signs or symptoms of infection or worsening. x Assessment & Plan Assessment & Plan (1) Laceration of hand with delay in treatment: Code(s): S61.419A - Laceration without foreign body of unspecified hand, initial encounter Qualifiers: Encounter type: initial encounter Laterality: right Qualified Code(s): S61.411A - Laceration without foreign body of right hand, initial encounter Plan: Wound was not bleeding, was very clean and is superficial, patient has full range of motion and is neurovascularly intact on the entire right hand. Gave him wound care instructions. Patient is outside the window for sutures therefore we applied 5 Steri-Strips and Dermabond after cleaning it with sterile saline. As the item was in a fish tank that patient cut his hand with, I will put him on 5 days of doxycycline, twice a day. Gave him red flag warning signs and when to return to the clinic according the emergency department. Plan See above Medications: New doxycycline hyclate 100 mg PO BID 10 tabs 0RF Coding Level of Care Code Est Pt Level 4 (46407) Diagnoses Laceration of right hand with delay in treatment, initial encounter S61.411A Encounter type: initial encounter Laterality: right
== END 2024-03-19 11:44 | disposition home or self-care (01) ==
PROVIDERS: PCP Physician Assistant; Visit Provider Physician Assistant
DX: S61.411A Laceration without foreign body of right hand, initial encounter (principal)

== ENCOUNTER → 2024-03-19 10:39 | Outpatient (BNVA) | payer MEDICARE, OTHER, SELFPAY | PROVIDERS: PCP Physician Assistant; Visit Provider Physician Assistant | DX: S61.411A Laceration without foreign body of right hand, initial encounter (principal) | CPT/HCPCS: 99212 ==

== ENCOUNTER 2024-04-20 15:04 | Outpatient (AMB) | payer MEDICARE, OTHER, SELFPAY ==
--- NOTE | 2024-04-20 15:11 | MHC.OFFWIV ---
Intake Vital Signs 04/20/24 15:12 Weight 178 lb BP 110/80 Blood Pressure Location Lt brachial Position Sitting Pulse 56 Pulse Source Pulse Oximeter Pulse Oximetry (%) 98 Oxygen Delivery Method Room Air Intake Visit Reasons: EP LT hand pain Intake Note: Patient here for left hand pain that has been present for about 1 month. Patient Tobacco Use Status: Never used Tobacco Allergies Penicillins [PENICILLINS] Allergy (Mild, Verified 04/20/24 15:12) HIVES Do you need a note to return to daycare/school/sports/work: No HPI HPI Comments History of Present Illness Details This is an 79-year-old male who presented to the walk-in clinic complaining of discomfort of left palm. Patient states he cut his palm approximately 1 month ago. He presented to the walk-in clinic at that time and had Steri-Strips placed. He states the laceration has healed well; however, he then noticed a hard lump under his palm. He denies any significant pain or discomfort. [facility] Medical History Laceration of right index finger w/o foreign body w/o damage to nail Medicare annual wellness visit, initial Medicare annual wellness visit, initial Skin cancer, basal cell Hypothyroidism Hypercholesterolemia Hx of cardiac arrest CAD (coronary artery disease) CLL (chronic lymphocytic leukemia) Surgical History Hx of colonoscopy History of bilateral knee arthroplasty Hx of thyroidectomy Family History Mother Breast cancer Father Aneurysm Sister Pancreatic cancer Daughter Thyroid cancer Social History Household Members: Children Household Members Other:: daughter Housing: House Do you presently have visiting nurse or other home services: No Alcohol intake: current Alcohol intake frequency: a few times a week Alcohol type: beer Comment: Pt. refused all fall risk precautions Patient Tobacco Use Status: Never used Tobacco e-Cigarette/Vaping Use: Never Used Second Hand Smoke Exposure: No service: No Current occupational status: retired Current occupational exposures/hazards: No Cognitive needs: No Hearing needs: Yes Vision needs: Yes Review of Systems Const All systems reviewed & are unremarkable except as noted in HPI and below Reports no additional complaints Eyes Reports no additional complaints ENT Reports no additional complaints Card Reports no additional complaints Resp Reports no additional complaints GI Reports no additional complaints Reports no additional complaints Musc Reports no additional complaints Skin/Breast Reports system reviewed and no additional complaints, except as documented Neuro Reports no additional complaints Psych Reports no additional complaints Endo Reports no additional complaints Lorenzo/Lymph Reports no additional complaints Aller/Immun Reports no additional complaints Physical Exam Vital Signs: Last Vital Signs Pulse 56 04/20/24 15:12 BP 110/80 04/20/24 15:12 Pulse Ox 98 04/20/24 15:12 Oxygen Delivery Method Room Air 04/20/24 15:12 Const Other: Vital signs reviewed. Constitutional: Non-toxic appearing. No acute distress. Well-developed and well-nourished. HEENT: Normocephalic and atraumatic. Skin: Warm and dry. No rashes or lesions noted. Neck: Full and painless range of motion. No cervical lymphadenopathy. Cardio: Regular rate. Pulmonary: No respiratory distress. No accessory muscle usage. Musculoskeletal: There is a small palpable fibrous band located at the left thenar eminence directly below a well-healed laceration/scar. There is no fluctuance or induration. There is no overlying erythema. Neuro: Alert and oriented x4. Cranial nerves 2-12 grossly intact. No focal deficits appreciated. Psych: Normal mood and affect. Assessment & Plan Assessment & Plan (1) Scar tissue: Code(s): L90.5 - Scar conditions and fibrosis of skin Plan: This is an 79-year-old male who presented to the walk-in clinic complaining of discomfort of left palm. On physical examination, there is a small palpable fibrous band of the left thenar eminence directly below where patient sustained a laceration approximately 1 month ago. This very likely represents scar tissue following laceration/ injury; however, an x-ray of the left hand was obtained to rule out foreign body and x-ray was negative for foreign body. Patient was reassured that this is likely scar tissue from his inujry/laceration 1 month ago. Patient was instructed to perform gentle massage over the area as well as apply ice as needed for pain/discomfort. Patient verbalized understanding and is agreeable with the plan. Coding Level of Care Code Est Pt Level 3 (42459) Diagnoses Scar tissue L90.5
[2024-04-20 15:12] VITALS: BP 110/80; PULSE 56; O2SAT 98
== END 2024-04-20 15:45 | disposition home or self-care (01) ==
PROVIDERS: PCP Physician Assistant; Visit Provider Physician Assistant Medical
DX: L90.5 Scar conditions and fibrosis of skin (principal)

== ENCOUNTER → 2024-04-20 15:04 | Outpatient (BNVA) | payer MEDICARE, OTHER, SELFPAY | PROVIDERS: PCP Physician Assistant; Visit Provider Physician Assistant Medical ==

== ENCOUNTER 2024-04-20 15:22 | Outpatient (REF) | payer MEDICARE, OTHER, SELFPAY ==
--- NOTE | ~2024-04-20 | XR_ITS ---
EXAMINATION: XR HAND, LEFT CLINICAL INFORMATION: M79.5 - Residual foreign body in soft tissue COMPARISON: None available. TECHNIQUE: PA, lateral, and oblique views of the left hand. FINDINGS: The bones and soft tissues are normal. No fracture. Alignment is anatomic. Joint spaces are maintained. No erosions or soft tissue calcifications. XR/XR hand LT min 3V IMPRESSION: Normal left hand. Electronically signed by: Kym Pascual MD 04/21/2024 07:18 PM JURGEN ROLLINS
== END 2024-04-20 15:23 | disposition home or self-care (01) ==
LOC: HO.HMGCX 15:22
PROVIDERS: PCP Physician Assistant; Visit Provider Physician Assistant Medical
DX: L90.5 Scar conditions and fibrosis of skin (principal)
CPT/HCPCS: 73130; 99212

== ENCOUNTER 2024-04-25 11:59 | Outpatient (REF) | payer MEDICARE, OTHER, SELFPAY ==
[2024-04-25 13:56] LABS: Free T4 (Free Thyroxine) 1.02 ng/dL (0.71-1.85)
== END 2024-04-25 12:00 | disposition home or self-care (01) ==
LOC: HO.LAB 11:59
PROVIDERS: PCP Physician Assistant; Visit Provider Physician Assistant
DX: I95.2 Hypotension due to drugs (principal)
CPT/HCPCS: 36415; 84439; 84443

== ENCOUNTER 2024-06-04 11:21 | Outpatient (AMB) | payer MEDICARE, OTHER, SELFPAY ==
--- NOTE | 2024-06-04 11:22 | MHC.PC.OV ---
Vital Signs 06/04/24 11:26 Height 5 ft 7 in Weight 177 lb 8 oz BMI 27.8 BP 118/72 Blood Pressure Location Lt brachial Position Sitting Pulse 70 Pulse Source Pulse Oximeter Pulse Oximetry (%) 98 Oxygen Delivery Method Room Air Intake Visit Reasons: 6 Month F/U Music Therapy Specialist Required: No Accompanied by: Self / Same As Patient Allergies Penicillins [PENICILLINS] Allergy (Mild, Verified 06/04/24 11:34) HIVES Medication List - Last Reconciled 06/04/24 by Eitan Ocampo PA-C acetaminophen 1,000 mg (2 x 500 mg) PO Q6H PRN alpha lipoic acid 200 mg PO MOWEFR@0900 amiodarone 100 mg PO DAILY ascorbic acid (vitamin C) (Vitamin C) 1 g PO SUTUTH@0900 aspirin 162 mg PO DAILY aspirin ER 162.5 mg PO DAILY blood pressure test kit-medium As directed cholecalciferol (vitamin D3) (Vitamin D3) 50 mcg PO SUTUTH@0900 coenzyme Q10 (CoQ-10) 200 mg PO DAILY compr.stocking,knee,long,small (T.E.D. Knee Zjvttw-A-Ttyx [facility] [place] As directed ferrous sulfate 324 mg PO TUTHSA@0900 finasteride 5 mg PO DAILY isosorbide mononitrate ER 15 mg (1/2 x 30 mg) PO DAILY 90 days lactulose 10 grams (15 mL) PO DAILY PRN 30 days levothyroxine 112 mcg PO DAILY@0600 levothyroxine 125 mcg PO DAILY magnesium aspart,citrate,oxide 400 mg PO SUTUTH@0900 mexiletine 200 mg PO BID nitroglycerin 0.4 mg sublingual Q5M PRN 15 days ranolazine ER 500 mg PO BID rosuvastatin 20 mg PO BEDTIME tamsulosin 0.4 mg PO DAILY vit C,W-Hk-iysus-lutein-zeaxan 250-90-40-1 mg (PreserVision AREDS-2) 1 tab PO BID vitamin B complex ER (Complex B-100 tablet,extended release) 1 tab PO Q2W Tobacco use date assessed: 06/04/24 Fall risk assessment: No Falls in past year Last assessed Fall Risk: 06/04/24 Dental Screening Dental Screen Date: 06/04/24 Did you have a dental visit in the last 12 months?: Yes Did you have a dental problem in the last 6 months where you did not have access to dental care?: No Was dental information given to patient?: Patient has dentist HPI 6 Month F/U HPI Details Mckinley is a 79 year-old male here today for a follow-up visit. Patient's past medical history significant for hypertension, coronary artery disease, history of Vfib cardiac arrest, hyperlipidemia, chronic lymphocytic leukemia. ?concerns--> recent weight gain. The patient has a history of essential hypertension and coronary artery disease, which have been monitored over time. Laboratory tests indicated hypothyroidism with a recent TSH level of 5.0, which prompted an adjustment in medication dosage from 0.112 to 0.125 mg of levothyroxine daily. However, the patient notes that this change has not significantly altered his serum levels or weight gain. He reports an increase in weight during this period, fluctuating between 165 to 172 pounds, which is contrary to his usual baseline of 160-165 pounds. The patient also mentions his exercise routine involving daily activity and limiting meals to two per day. No significant swelling was noted ? Lukemia : Is followed by hematology.has been dx with CLL and will be followed by Oncology. He had some concerns about weight loss the reports his diet has changed since his daughter has left his home whom usually grouped elaborate meals. . Hypothyroid: recent Tsh slightly elevated at 5.0 ? ... ? CAD -patient recently seen his fire control assistant Dr. Mckeon (rancho and david) ? Most recent lipid panel acceptable. He reports most recent visit with his fire control assistant recommendations have been made for nuclear stress test. He is apprehensive on any nuclear test and still considering. Laboratory Tests 11/17/23 11/17/23 16:41 18:48 Hgb 12.5 L Troponin I High Se ns 7.7 22.7 D [facility] Medical History Laceration of right index finger w/o foreign body w/o damage to nail Medicare annual wellness visit, initial Medicare annual wellness visit, initial Skin cancer, basal cell Hypothyroidism Hypercholesterolemia Hx of cardiac arrest CAD (coronary artery disease) CLL (chronic lymphocytic leukemia) Surgical History Hx of colonoscopy History of bilateral knee arthroplasty Hx of thyroidectomy Family History Mother Breast cancer Father Aneurysm Sister Pancreatic cancer Daughter Thyroid cancer Social History Household Members: Children Household Members Other:: daughter Housing: House Do you presently have visiting nurse or other home services: No Alcohol intake: current Alcohol intake frequency: a few times a week Alcohol type: beer Comment: Pt. refused all fall risk precautions Patient Tobacco Use Status: Never used Tobacco e-Cigarette/Vaping Use: Never Used Second Hand Smoke Exposure: No service: No Current occupational status: retired Current occupational exposures/hazards: No Cognitive needs: No Hearing needs: Yes Vision needs: Yes Questionnaire PHQ-9 Over the last 2 weeks, how often have you been bothered by any of the following problems? 1. Little interest or pleasure in doing things: not at all 2. Feeling down, depressed, or hopeless: not at all 3. Trouble falling or staying asleep, or sleeping too much: not at all 4. Feeling tired or having little energy: not at all 5. Poor appetite or overeating: not at all 6. Feeling bad about yourself - or that you are a failure or have let yourself or your family down: not at all 7. Trouble concentrating on things, such as reading the newspaper or watching television: not at all 8. Moving or speaking so slowly that other people could have noticed. Or the opposite - being so fidgety or restless that you have been moving around a lot more than usual: not at all 9. Thoughts that you would be better off or of hurting yourself in some way: not at all Total score: 0 Depression Screening Interpretation: Negative Depression Screening Done: Yes 66671 - PHQ-9 Billing: Yes Source: Developed by Drs. Ted Davis, Isabella Hill, Mk Rawls and colleagues, with an educational david from [employer]. Thrive Questionnaire Date Thrive assessed: 06/04/24 I am a: Patient What is your living situation today?: I have a steady place to live Within the past 12 months, did the food you bought not last and you didn't have the money to get more?: Never true Within the past 12 months, did you worry whether your food would run out before you got money to buy more?: Never true Do you have trouble paying for medicines?: No Do you have trouble getting transportation to medical appointments?: No Do you have trouble paying your heating and electricity bill?: No Do you have trouble taking care of your child, family member or friend?: No Do you have trouble with day-to-day activities such as bathing, preparing meals, shopping, managing finances, etc.?: No Are you currently unemployed and looking for a job?: No Are you interested in more education?: No Please select the resources that you would like help with: None Currently or been in a relationship where the following occur: No concerns reported THRIVE Score: 0 AUDIT C Alcohol Use Questionnaire (AUDIT-C) 1. How often do you have a drink containing alcohol?: Never 3. How often do you have six or more drinks on one occasion?: Never Total Score: 0 KANNAN-7 AMB Questionnaire KANNAN-7 Date KANNAN - 7 assessed: 06/04/24 Feeling nervous, anxious, or on edge: 0 = Not at all Not being able to stop or control worryin = Not at all Worrying too much about different things: 0 = Not at all Trouble relaxin = Not at all Being so restless that it is hard to sit still: 0 = Not at all Becoming easily annoyed or irritable: 0 = Not at all Feeling afraid as if something awful might happen: 0 = Not at all Total KANNAN-7 score (0-4 normal; 5-9 mild; 10-14 moderate; 15-21 severe): 0 Source: Developed by Drs. Ted Davis, Isabella Hill, Mk Rawls and colleagues, with an educational david from [employer]. KANNAN-7 Assessment Billing KANNAN-7 Assessment Tool: KANNAN-7 Assessment 12179 Review of Systems Const Denies headache(s) Eyes Denies loss of vision ENT Denies vertigo, Denies dizziness, Denies headache(s) and Denies sore throat Card Denies chest pain, Denies leg edema and Denies lightheadedness Resp Denies cough, Denies hemoptysis and Denies wheezing GI Denies abdominal pain, Denies melena, Denies constipation, Denies diarrhea and Denies vomiting Denies dysuria, Denies urinary frequency and Denies urinary urgency Musc Denies arthralgias, Denies joint swelling, Denies numbness and Denies tingling Neuro Denies Abnormal speech present, Denies behavioral changes, Denies vertigo, Denies dizziness, Denies headache(s), Denies loss of vision, Denies memory loss, Denies numbness and Denies tingling Psych Denies anxiety, Denies behavioral changes, Denies depression, Denies memory loss and Denies panic attacks Lorenzo/Lymph Denies easy bleeding and Denies easy bruising Aller/Immun Denies wheezing Physical exam (Primary Care) Vital Signs: Last Vital Signs Pulse 70 06/04/24 11:26 BP 118/72 06/04/24 11:26 Pulse Ox 98 06/04/24 11:26 Oxygen Delivery Method Room Air 06/04/24 11:26 BMI result Body Mass Index 27.8 Tobacco/Smoking Status: Tobacco use Status Tobacco use date assessed 06/04/24 06/04/24 11:28 Patient Tobacco Use Status Never used Tobacco 06/04/24 11:23 e-Cigarette/Vaping Use Never Used 06/04/24 11:23 PHQ-9: PHQ-9 Score PHQ-9: Total score 0 06/04/24 11:28 Depression Screening Interpretation: Negative Thrive Assessment: Date of Thrive Assessment Date Thrive assessed 06/04/24 06/04/24 11:28 Currently or been in a relationship where the following occur: No concerns reported Const General: healthy appearing, no acute distress, alert and awake Nutritional Appearance: well nourished Orientation/consciousness: oriented to person, oriented to place and oriented to time [facility] Ears: TM's normal bilaterally General nose exam: Normal nasal mucous membranes and turbinates present Eyes Conjunctivae: conjunctivae normal Sclerae: sclerae normal Pupils: Equal, round and reactive pupils present Neck Neck: Yes no lymphadenopathy and Yes no JVD Thyroid: Thyroid normal Carotids: no bruits Resp Effort & Inspection: normal respiratory effort and not tachypneic Auscultation: no crackles, no rales, no rhonchi and no wheezes Cardio Rate: regular rate Rhythm: regular rhythm Heart sounds: no murmurs and normal S1 and S2 GI Palpation (GI): Soft to palpation, nontender, no hepatomegaly and no splenomegaly Auscultation: normal bowel sounds Skin General skin exam: no rashes or lesions noted and dry skin Neuro General: oriented to person, oriented to place and oriented to time Cranial nerves: Yes Equal, round and reactive pupils present Speech: No Abnormal speech present Gait exam (Neuro): Normal gait present Motor exam (neuro): no tremor noted Extrem Right upper extremity: full ROM Left upper extremity: full ROM Right lower extremity: full ROM; no edema Left lower extremity: full ROM; no edema Psych Mental Status: mental status grossly normal Speech and movement: Normal speech and movement present Affect: normal affect Attitude: cooperative Thought process: Normal thought process present Coding Level of Care Code Est Pt Level 4 (83396) Diagnoses Essential hypertension I10 Hypertension type: essential hypertension Hypothyroidism, unspecified type E03.9 Hypothyroidism type: unspecified CLL (chronic lymphocytic leukemia) C91.10 Coronary artery disease of [place] artery of [place] heart with stable angina pectoris I25.118 Coronary Disease-Associated Artery/Lesion type: [place] artery [place] vs. transplanted heart: [place] heart Associated angina: with stable angina Paroxysmal atrial fibrillation I48.0 Additional Codes KANNAN-7 Assessment Billing - KANNAN-7 Assessment Tool: KANNAN-7 Assessment 71901 ([id number]) PHQ-9 - 94183 - PHQ-9 Billing: Yes ([id number]) Assessment & Plan Assessment & Plan (1) HTN (hypertension): Code(s): I10 - Essential (primary) hypertension Category: Medical Qualifiers: Hypertension type: essential hypertension Qualified Code(s): I10 - Essential (primary) hypertension Plan: Patient's blood pressure acceptable today in office. Will continue his current dose of antihypertensive medication with goal blood pressure to remain below 140/90 (2) Hypothyroidism: Code(s): E03.9 - Hypothyroidism, unspecified Category: Medical Qualifiers: Hypothyroidism type: unspecified Qualified Code(s): E03.9 - Hypothyroidism, unspecified Plan: Most recent TSH slightly elevated at 5.0. Has noted some weight gain over the last 6 months. We did increase his levothyroxine to 125 mcg so he tells me is intermittently using 112 mcg as well. Will recheck TSH to assure normal. (3) CLL (chronic lymphocytic leukemia): Code(s): C91.10 - Chronic lymphocytic leukemia of B-cell type not having achieved remission Category: Medical Plan: Continues to follow Hematology. Most recent CBC showing stable RBCs and white blood cell count (4) CAD (coronary artery disease): Code(s): I25.10 - Atherosclerotic heart disease of [place] coronary artery without angina pectoris Category: Medical Qualifiers: Coronary Disease-Associated Artery/Lesion type: [place] artery [place] vs. transplanted heart: [place] heart Associated angina: with stable angina Qualified Code(s): I25.118 - Atherosclerotic heart disease of [place] coronary artery with other forms of angina pectoris Plan: Patient continues to follow cardiology. Does have a defibrillator in place and a discharge last year due to med noncompliance. Most recent lipid panel showing excellent control of his LDL. Goal LDL is to be optimally below 70 (5) Paroxysmal atrial fibrillation: Code(s): I48.0 - Paroxysmal atrial fibrillation Category: Medical Plan: Patient continues on has been therapy and amiodarone. Continues to follow fire control assistant. Rhythm and rate seem to to be well controlled. Orders: Orders TSH reflex Free T4 Today E03.9 - Hypothyroidism, unspecified Lipid Panel Today I25.118 - Atherosclerotic heart disease of [place] coronary artery with other forms of angina pectoris Comprehensive [place]. Panel Fast Today I25.118 - Atherosclerotic heart disease of [place] coronary artery with other forms of angina pectoris Complete Blood Count no Diff 6 Months I25.118 - Atherosclerotic heart disease of [place] coronary artery with other forms of angina pectoris TSH reflex Free T4 6 Months E03.9 - Hypothyroidism, unspecified Patient Instructions: Goal: Blood pressure to remain below 140/90, LDL optimally below 70 Barriers: Age, adherence to healthy eating habits
[2024-06-04 11:26] VITALS: BP 118/72; PULSE 70; O2SAT 98; BMI 27.8
== END 2024-06-04 11:59 | disposition home or self-care (01) ==
PROVIDERS: PCP Physician Assistant; Visit Provider Physician Assistant
DX: I10 Essential (primary) hypertension (principal); E03.9 Hypothyroidism, unspecified; C91.10 Chronic lymphocytic leukemia of B-cell type not having achieved remission; I25.118 Atherosclerotic heart disease of native coronary artery with other forms of angina pectoris; I48.0 Paroxysmal atrial fibrillation

== ENCOUNTER 2024-06-04 11:21 | Outpatient (REF) | payer MEDICARE, OTHER, SELFPAY ==
[2024-06-04 13:22] LABS: Alanine Aminotransferase 28 U/L (0-40); Alkaline Phosphatase 64 U/L (39-117); Anion Gap 11 (12-20); Aspartate Amino Transferase 28 U/L (5-37); Bilirubin Total 0.4 mg/dL (0.0-1.0); Blood Urea Nitrogen 19 mg/dL (9-16); Calcium 8.2 mg/dL (8.4-10.2); Carbon Dioxide 29 mmol/L (22-29); Chloride 108 mmol/L (96-108); Cholesterol 120 mg/dL (<200); Estimated Glomerular Filt Rate > 60; Glucose Fasting 79 mg/dL (60-99); HDL Cholesterol 56 mg/dL (>40); LDL Cholesterol Calculated 54 mg/dL (<100); Potassium 4.2 mmol/L (3.3-5.1); Sodium 144 mmol/L (135-145); Total Protein 6.3 g/dL (6.5-8.0); Triglycerides 52 mg/dL (<150)
[2024-06-04 13:38] LABS: TSH reflex Free T4 4.75 uIU/mL (0.32-4.0)
[2024-06-04 14:13] LABS: Free T4 (Free Thyroxine) 1.13 ng/dL (0.71-1.85)
== END 2024-06-04 11:22 | disposition home or self-care (01) ==
LOC: HO.LAB 11:21
PROVIDERS: PCP Physician Assistant; Visit Provider Physician Assistant
DX: I10 Essential (primary) hypertension (principal); E03.9 Hypothyroidism, unspecified; C91.10 Chronic lymphocytic leukemia of B-cell type not having achieved remission; I25.118 Atherosclerotic heart disease of native coronary artery with other forms of angina pectoris; I48.0 Paroxysmal atrial fibrillation; Z79.899 Other long term (current) drug therapy
CPT/HCPCS: 36415; 80053; 80061; 84439; 84443; 96127; 99212

== ENCOUNTER 2024-07-24 10:05 | Outpatient (REF) | payer MEDICARE, OTHER, SELFPAY ==
[2024-07-24 12:19] LABS: TSH reflex Free T4 2.19 uIU/mL (0.32-4.0)
== END 2024-07-24 10:06 | disposition home or self-care (01) ==
LOC: HO.LAB 10:05
PROVIDERS: PCP Physician Assistant; Visit Provider Physician Assistant
DX: E03.9 Hypothyroidism, unspecified (principal)
CPT/HCPCS: 36415; 84443

== ENCOUNTER 2024-07-31 12:09 | Outpatient (AMB) | payer MEDICARE, OTHER, SELFPAY ==
[2024-07-31 12:39] VITALS: BP 122/80; PULSE 54; TEMP 36.5; O2SAT 98; BMI 27.1
--- NOTE | 2024-07-31 12:39 | MHC.OFFWIV ---
Intake Vital Signs 07/31/24 12:39 Height 5 ft 7 in Weight 173 lb BMI 27.1 BP 122/80 Blood Pressure Location Lt brachial Position Sitting Pulse 54 Pulse Source Pulse Oximeter Temp 97.7 F Temp Source Oral Pulse Oximetry (%) 98 Oxygen Delivery Method Room Air Intake Visit Reasons: EP-lt lower arm pain from a fall Intake Note: Pt presents to the office today for c/o left lower arm and elbow pain after falling outside on his driveway last night. Patient Tobacco Use Status: Never used Tobacco Allergies Penicillins [PENICILLINS] Allergy (Mild, Verified 07/31/24 12:40) HIVES HPI HPI Comments History of Present Illness Details This is an 79-year-old male presenting for evaluation of a laceration on his left forearm. Patient states that he slipped on the sidewalk outside his home yesterday and fell onto his left arm. Patient denies any head injury or loss of consciousness as a result of this fall. Patient has a laceration that continued to bleed through the night. Patient denies any left elbow pain, left wrist pain or pain in his left hand. Patient cleansed the laceration and dressed it with Bacitracin prior to going to bed last evening. [facility] Medical History Laceration of right index finger w/o foreign body w/o damage to nail Medicare annual wellness visit, initial Medicare annual wellness visit, initial Skin cancer, basal cell Hypothyroidism Hypercholesterolemia Hx of cardiac arrest CAD (coronary artery disease) CLL (chronic lymphocytic leukemia) Surgical History Hx of colonoscopy History of bilateral knee arthroplasty Hx of thyroidectomy Family History Mother Breast cancer Father Aneurysm Sister Pancreatic cancer Daughter Thyroid cancer Social History Household Members: Children Household Members Other:: daughter Housing: House Do you presently have visiting nurse or other home services: No Alcohol intake: current Alcohol intake frequency: a few times a week Alcohol type: beer Comment: Pt. refused all fall risk precautions Patient Tobacco Use Status: Never used Tobacco e-Cigarette/Vaping Use: Never Used Second Hand Smoke Exposure: No service: No Current occupational status: retired Current occupational exposures/hazards: No Cognitive needs: No Hearing needs: Yes Vision needs: Yes Review of Systems Const All systems reviewed & are unremarkable except as noted in HPI and below Reports no additional complaints Eyes Reports no additional complaints ENT Reports no additional complaints Card Reports no additional complaints Resp Reports no additional complaints Musc Reports no additional complaints Skin/Breast Reports as per HPI and Reports lesions (left forearm) Neuro Reports no additional complaints Psych Reports no additional complaints Endo Reports no additional complaints Lorenzo/Lymph Reports no additional complaints Physical Exam Const General: cooperative, healthy appearing, comfortable, no acute distress, well developed, alert, awake and Physically active Nutritional Appearance: average body habitus Orientation/consciousness: patient oriented x3 Limitations: no limitations Skin Other: 2.5cm x 0.5cm laceration overlying the left proximal ulna; no residual bleeding, well approximated, no depth appreciated. Neuro General: patient oriented x3 Extrem Other: passive ROM left olecranon, left wrist intact; no bony pain to palpation of the proximal ulna and radius, no pain with supination or pronation of the left hand against resistance General: Yes normal to inspection and Yes full ROM Psych Appearance: grossly normal Mental Status: mental status grossly normal Insight: Good insight present (Psych) Judgement: Good judgement present (Psych) Assessment & Plan Assessment & Plan (1) Laceration of left forearm: Comment: This laceration is well approximated and does not warrant any advanced closure with Steri-Strips at this time. Lesion is dressed with bacitracin. Code(s): S51.812A - Laceration without foreign body of left forearm, initial encounter Qualifiers: Encounter type: initial encounter Qualified Code(s): S51.812A - Laceration without foreign body of left forearm, initial encounter Plan: Keep bandaged with bacitracin twice daily as needed. Coding Level of Care Code Est Pt Level 3 (97854) Diagnoses Laceration of left forearm, initial encounter S51.812A Encounter type: initial encounter Time Spent (min) 20
== END 2024-07-31 13:04 | disposition home or self-care (01) ==
PROVIDERS: PCP Physician Assistant; Visit Provider Physician Assistant
DX: S51.812A Laceration without foreign body of left forearm, initial encounter (principal)

== ENCOUNTER → 2024-07-31 12:09 | Outpatient (BNVA) | payer MEDICARE, OTHER, SELFPAY | PROVIDERS: PCP Physician Assistant; Visit Provider Physician Assistant | DX: S51.812A Laceration without foreign body of left forearm, initial encounter (principal); W18.30XA Fall on same level, unspecified, initial encounter; Y93.01 Activity, walking, marching and hiking; Y92.480 Sidewalk as the place of occurrence of the external cause; Y99.9 Unspecified external cause status | CPT/HCPCS: 99212 ==

== ENCOUNTER 2024-10-25 13:12 | Outpatient (REF) | payer MEDICARE, OTHER, SELFPAY ==
[2024-10-25 13:49] LABS: Hematocrit 36.9 % (42.0-52.0); Hemoglobin 12.4 g/dl (14.0-18.0); Mean Corpuscular HGB Conc 33.6 g/dl (31.0-36.0); Mean Corpuscular Hemoglobin 32.2 pg (27.0-33.0); Mean Corpuscular Volume 95.8 fL (80.0-98.0); Mean Platelet Volume 9.7 fL (9.4-12.4); Platelet Count 158 X10*3/uL (160-400); Red Blood Count 3.85 X10*6/uL (4.60-5.80); Red Cell Distribution Width 13.1 % (11.0-16.0); White Blood Count 9.6 X10*3/uL (4.8-10.8)
[2024-10-25 14:19] LABS: Appearance Urine Cloudy; Color Urine Orange; PH 5.5 (5.0-9.0); Specific Gravity - Urine 1.025 (1.005-1.025); UMIC TRIGGER UACC YES; Urine Blood Large (3+) (Negative)
[2024-10-25 14:27] LABS: TSH reflex Free T4 3.62 uIU/mL (0.32-4.0)
[2024-10-25 14:36] LABS: Glucose Urine UA Negative (Negative)
[2024-10-25 14:37] LABS: Urine Ketones Negative (Negative); Urine Protein Negative (Neg-Trace)
[2024-10-25 14:38] LABS: Leukocyte Esterase Urine Negative (Negative); Nitrite Urine Negative (Negative)
[2024-10-25 14:40] LABS: Bacteria Urine Trace (None Seen); Hyaline Casts Urine 0-2 /LPF (0-2); RBC Urine >20 /HPF (0-2); UACC Culture Trigger YES; WBC Urine >50 /HPF (0-5)
--- OUTSIDE RECORDS SUMMARY | 2024-10-25 15:22 | XMS_ITS | Encounter Summary ---
Author Organization [facility] Address [address] [place] [id number] Care Team Providers Care Crew Supervisor Name Role Phone Satish Merida MD Primary Care Provider [phone] Encounter Details Date Type Department Care Team (Late st Contact Info) Description 09/12/2024 Lab Requisition [facility] - Main Lab [address] [facility] [place] [address] Satish Hammonds MD [address] [facility] [address] [place] [address] Gross hematuria Social History Tobacco Use Types Packs/Day Years Used Date Smoking Tobacco: Never Smokeless Tobacco: Never Alcohol Use Standard Drinks/Week Comments Yes 0 (1 standard drink = 0.6 oz pur e alcohol) Sex and Gender Information Value Date Recorded Sex Assigned at Not on file Legal Sex Male 8:05 AM EST Gender Identity Not on file Sexual Orientation Not on file documented as of this encounter Plan of Treatment Not on file documented as of this encounter Procedures Procedure Name Priority Date/Time Associated Diagnosis Comments AP OUTSIDE CONSULT Routine 09/11/2024 12 :00 AM EDT Gross hematuria documented in this encounter Results * Anatomic pathology outside consult (09/11/2024 12:00 AM EDT) Addendum Results of UroVysion fluorescence in situ hybridization (FISH) testing: CEP3: Abnormal CEP7: Abnormal CEP17: Abnormal LSI 9p21: Normal Interpretation: Abnormal profile Controls stained appropriately. Note: Abnormal results are considered suspicious for urothelial carcinoma. 09/21/2024 10:50 AM EDT [facility] ([facility]) [facility] Addendum electronically signed by John Torres MD on 09/21/2024 at 10:50 AM Final Diagnosis A. Urine, Voided, ([id number]): Atypical urothelial cells. Note: Based upon the cytologic findings, UroVysion testing will be performed, the result to follow in an addendum. 09/21/2024 10:50 AM EDT [facility] Clinical Information Gross hematuria R31.0 Urine cytology with reflex [facility]roVysion ([facility]) 09/21/2024 10:50 AM EDT [facility] Gross Description A. Urine, Voided, ([id number]): Gross hematuria R31.0 09/21/2024 10:50 AM EDT [facility] Disclaimer Unless otherwise specified, all tissue is 10% NB formalin fixed and paraffin embedded. Technical pathology services provided by [facility] at [address] [facility] [address], [place] [address] (CLIA #[id number]/Gemini Cho MD, [employer]) 09/21/2024 10:50 AM EDT [facility] Tissue Urine specimen from urethra / Unknown 09/11/2024 09/12/2024 2:05 PM EDT us Satish Hammonds MD LAB PATHOLOGY ORDERABLES Edited Result - Final [facility] [address] [place] [address], documented in this encounter Visit Diagnoses Diagnosis Gross hematuria documented in this encounter Care Teams Crew Supervisor Relationship Specialty Start Date End Date Satish Merida MD [address] [place] [address] PCP - General Internal Medicine 02/21/13 documented as of this encounter
== END 2024-10-25 13:13 | disposition home or self-care (01) ==
LOC: HO.LAB 13:12
PROVIDERS: PCP Physician Assistant; Visit Provider Physician Assistant
DX: E03.9 Hypothyroidism, unspecified (principal); I25.118 Atherosclerotic heart disease of native coronary artery with other forms of angina pectoris; R30.0 Dysuria
CPT/HCPCS: 36415; 81001; 81003; 84443; 85027; 87086; 87088; 87186

== ENCOUNTER 2024-12-03 10:55 | Outpatient (AMB) | payer MEDICARE, OTHER, SELFPAY ==
--- NOTE | 2024-12-03 11:01 | A.OFFPC_ITS ---
Vital Signs 12/03/24 11:03 12/03/24 11:21 Height 5 ft 7 in Weight 165 lb 2 oz BMI 25.9 BP 90/58 L 120/76 Blood Pressure Location Lt brachial Position Sitting Pulse 53 Pulse Source Pulse Oximeter Temp 97.1 F Temp Source Temporal Artery Scan Pulse Oximetry (%) 98 Oxygen Delivery Method Room Air Intake Visit Reasons: 6 Month F/U Intake Note: Patient is here to follow up on CAD, BPH, Hypothyroidism. Tree Killer Required: No Faucet Polisher: Not Required per policy Accompanied by: Self / Same As Patient Allergies Penicillins (PENICILLINS) Allergy (Mild, Verified 12/03/24 11:17) HIVES Medication List - Last Reconciled 12/03/24 by Eitan Ocampo PA-C acetaminophen 1,000 mg (2 x 500 mg) PO Q6H PRN alpha lipoic acid 200 mg PO MOWEFR@0900 amiodarone 100 mg PO DAILY ascorbic acid (vitamin C) (Vitamin C) 1 g PO SUTUTH@0900 aspirin ER 162.5 mg PO DAILY blood pressure test kit-medium As directed cholecalciferol (vitamin D3) (Vitamin D3) 50 mcg PO SUTUTH@0900 coenzyme Q10 (CoQ-10) 200 mg PO DAILY compr.stocking,knee,long,small (T.E.D. Knee Emekds-H-Jqyh misc) As directed ferrous sulfate 324 mg PO TUTHSA@0900 finasteride 5 mg PO DAILY isosorbide mononitrate ER 15 mg (1/2 x 30 mg) PO DAILY 90 days lactulose 10 grams (15 mL) PO DAILY PRN 30 days levothyroxine 150 mcg PO DAILY 30 days magnesium aspart,citrate,oxide 400 mg PO SUTUTH@0900 mexiletine 200 mg PO BID nitroglycerin 0.4 mg sublingual Q5M PRN 15 days ranolazine ER 500 mg PO BID rosuvastatin 20 mg PO BEDTIME 90 days tamsulosin 0.4 mg PO DAILY vit C,D-Oq-avbnv-lutein-zeaxan 250-90-40-1 mg (PreserVision AREDS-2) 1 tab PO BID vitamin B complex ER (Complex B-100 tablet,extended release) 1 tab PO Q2W Tobacco use date assessed: 12/03/24 Fall risk assessment: 2 + Falls in past year Last assessed Fall Risk: 12/03/24 Dental Screening Dental Screen Date: 06/04/24 HPI 6 Month F/U HPI Details Mckinley is a 79 year-old male here today for a follow-up visit. Patient's past medical history significant for hypertension, coronary artery disease, history of Vfib cardiac arrest, hyperlipidemia, chronic lymphocytic leukemia. ?concerns--> patient reports he is followed by a urologist in [place], recently underwent a bladder biopsy and reports having been infection secondary to the procedure. ?? Lukemia : Is followed by hematology.has been dx with CLL and will be followed by Oncology. He continues to maintain his weight and blood levels continues to stay stable. . Hypothyroid: recent Tsh stable at 3, ? ... ? CAD -patient recently seen his manager mutual fund Dr[facility] ? Most recent lipid panel acceptable.. .. Hypertension: Patient's blood pressure seems to be stable today in office on current dose antihypertensive medication. Laboratory Tests 11/17/23 11/17/23 16:41 18:48 Hgb 12.5 L Troponin I High Se ns 7.7 22.7 D [facility] Medical History Laceration of right index finger w/o foreign body w/o damage to nail Medicare annual wellness visit, initial Medicare annual wellness visit, initial Skin cancer, basal cell Hypothyroidism Hypercholesterolemia Hx of cardiac arrest CAD (coronary artery disease) CLL (chronic lymphocytic leukemia) Surgical History History of biopsy of bladder Hx of colonoscopy History of bilateral knee arthroplasty Hx of thyroidectomy Family History Mother Breast cancer Father Aneurysm Sister Pancreatic cancer Daughter Thyroid cancer Social History Household Members: Children Household Members Other:: daughter Housing: House Do you presently have visiting nurse or other home services: No Alcohol intake: current Alcohol intake frequency: a few times a week Alcohol type: beer Comment: Pt. refused all fall risk precautions Patient Tobacco Use Status: Never used Tobacco e-Cigarette/Vaping Use: Never Used Second Hand Smoke Exposure: No service: No Current occupational status: retired Current occupational exposures/hazards: No Cognitive needs: No Hearing needs: Yes Vision needs: Yes Questionnaire Thrive Questionnaire Date Thrive assessed: 06/04/24 KANNAN-7 AMB Questionnaire KANNAN-7 Date KANNAN - 7 assessed: 06/04/24 Source: Developed by Drs. Ted Davis, Isabella Hill, Mk Rawls and colleagues, with an educational david from [employer]. Review of Systems Const Denies headache(s) Eyes Denies loss of vision ENT Denies vertigo, Denies dizziness, Denies headache(s) and Denies sore throat Card Denies chest pain, Denies leg edema and Denies lightheadedness Resp Denies cough, Denies hemoptysis and Denies wheezing GI Denies abdominal pain, Denies melena, Denies constipation, Denies diarrhea and Denies vomiting Denies dysuria, Denies urinary frequency and Denies urinary urgency Musc Denies arthralgias, Denies joint swelling, Denies numbness and Denies tingling Neuro Denies Abnormal speech present, Denies behavioral changes, Denies vertigo, Denies dizziness, Denies headache(s), Denies loss of vision, Denies memory loss, Denies numbness and Denies tingling Psych Denies anxiety, Denies behavioral changes, Denies depression, Denies memory loss and Denies panic attacks Lorenzo/Lymph Denies easy bleeding and Denies easy bruising Aller/Immun Denies wheezing Physical exam (Primary Care) Vital Signs: Last Vital Signs Temp 97.1 F 12/03/24 11:03 Pulse 53 12/03/24 11:03 BP 120/76 12/03/24 11:21 Pulse Ox 98 12/03/24 11:03 Oxygen Delivery Method Room Air 12/03/24 11:03 BMI result Body Mass Index 25.9 Tobacco/Smoking Status: Tobacco use Status Tobacco use date assessed 12/03/24 12/03/24 11:13 Patient Tobacco Use Status Never used Tobacco 12/03/24 11:13 e-Cigarette/Vaping Use Never Used 12/03/24 11:13 Thrive Assessment: Date of Thrive Assessment Date Thrive assessed 06/04/24 12/03/24 11:13 Const General: healthy appearing, no acute distress, alert and awake Nutritional Appearance: well nourished Orientation/consciousness: oriented to person, oriented to place and oriented to time HENMT Ears: TM's normal bilaterally General nose exam: Normal nasal mucous membranes and turbinates present Eyes Conjunctivae: conjunctivae normal Sclerae: sclerae normal Pupils: Equal, round and reactive pupils present Neck Neck: Yes no lymphadenopathy and Yes no JVD Thyroid: Thyroid normal Carotids: no bruits Resp Effort & Inspection: normal respiratory effort and not tachypneic Auscultation: no crackles, no rales, no rhonchi and no wheezes Cardio Rate: regular rate Rhythm: regular rhythm Heart sounds: no murmurs and normal S1 and S2 GI Palpation (GI): Soft to palpation, nontender, no hepatomegaly and no splenomegaly Auscultation: normal bowel sounds Skin General skin exam: no rashes or lesions noted and dry skin Neuro General: oriented to person, oriented to place and oriented to time Cranial nerves: Yes Equal, round and reactive pupils present Speech: No Abnormal speech present Gait exam (Neuro): Normal gait present Motor exam (neuro): no tremor noted Extrem Right upper extremity: full ROM Left upper extremity: full ROM Right lower extremity: full ROM; no edema Left lower extremity: full ROM; no edema Psych Mental Status: mental status grossly normal Speech and movement: Normal speech and movement present Affect: normal affect Attitude: cooperative Thought process: Normal thought process present Coding Level of Care Code Est Pt Level 4 (78698) Diagnoses Essential hypertension I10 Hypertension type: essential hypertension Hypothyroidism, unspecified type E03.9 Hypothyroidism type: unspecified CLL (chronic lymphocytic leukemia) C91.10 Coronary artery disease of [place] artery of [place] heart with stable angina pectoris I25.118 Associated angina: with stable angina Coronary Disease-Associated Artery/Lesion type: [place] artery [place] vs. transplanted heart: [place] heart Paroxysmal atrial fibrillation I48.0 Assessment & Plan Assessment & Plan (1) HTN (hypertension): Code(s): I10 - Essential (primary) hypertension Category: Medical Qualifiers: Hypertension type: essential hypertension Qualified Code(s): I10 - Essential (primary) hypertension Plan: Patient's blood pressure acceptable today in office. Will continue his current dose of antihypertensive medication with goal blood pressure to remain below 140/90 (2) Hypothyroidism: Code(s): E03.9 - Hypothyroidism, unspecified Category: Medical Qualifiers: Hypothyroidism type: unspecified Qualified Code(s): E03.9 - Hypothyroidism, unspecified Plan: Most recent TSH at 3.6. Continue his current dose of levothyroxine and continue following TSH to ensure normal (3) CLL (chronic lymphocytic leukemia): Code(s): C91.10 - Chronic lymphocytic leukemia of B-cell type not having achieved remission Category: Medical Plan: Continues to follow Hematology. Most recent CBC showing stable RBCs and white blood cell count (4) CAD (coronary artery disease): Code(s): I25.10 - Atherosclerotic heart disease of [place] coronary artery without angina pectoris Category: Medical Qualifiers: Associated angina: with stable angina Coronary Disease-Associated Artery/Lesion type: [place] artery [place] vs. transplanted heart: [place] heart Qualified Code(s): I25.118 - Atherosclerotic heart disease of [place] coronary artery with other forms of angina pectoris Plan: Patient continues to follow cardiology. Does have a defibrillator in place and a discharge last year due to med noncompliance. Most recent lipid panel showing excellent control of his LDL. Goal LDL is to be optimally below 70 (5) Paroxysmal atrial fibrillation: Code(s): I48.0 - Paroxysmal atrial fibrillation Category: Medical Plan: Patient continues on has been therapy and amiodarone. Continues to follow manager mutual fund. Rhythm and rate seem to to be well controlled. Orders: Orders Microalbumin, Random (w Creat) 12/03/24 I25.118 - Atherosclerotic heart disease of [place] coronary artery with other forms of angina pectoris Comprehensive [place]. Panel Fast 12/03/24 I25.118 - Atherosclerotic heart disease of [place] coronary artery with other forms of angina pectoris TSH reflex Free T4 12/03/24 E03.9 - Hypothyroidism, unspecified Complete Blood Count no Diff 12/03/24 I25.118 - Atherosclerotic heart disease of [place] coronary artery with other forms of angina pectoris Medications: Refilled nitroglycerin do not exceed 3 doses per episode 0.4 mg sublingual Q5M PRN 30 tabs 0RF chest pain 15 days I25.118 - Atherosclerotic heart disease of [place] coronary artery with other forms of angina pectoris
[2024-12-03 11:03] VITALS: BP 90/58; PULSE 53; TEMP 36.2; O2SAT 98; BMI 25.9
[2024-12-03 11:21] VITALS: BP 120/76
--- OUTSIDE RECORDS SUMMARY | 2024-12-03 12:06 | XMS_ITS | Encounter Summary ---
Author Organization [facility] Address [id number] [place] [id number] Care Team Providers Care Brand Sales Manager Name Role Phone Satish Merida MD Primary Care Provider Encounter Details Date Type Department Care Team (Late st Contact Info) Description 09/12/[address] [facility] - Main Lab [address] [facility] [place] [address] Satish Hammonds MD [address] [facility] [address] [place] [address] Gross hematuria Social History Tobacco [...] for urothelial carcinoma. 09/21/2024 10:50 AM EDT [facility] ([facility]) [facility] Addendum electronically signed by John Torres MD on 09/21/2024 at 10:50 AM Final Diagnosis A. Urine, Voided, ([id number]): Atypical urothelial cells. Note: Based upon the cytologic findings, UroVysion testing will be performed, the result to follow in an addendum. 09/21/2024 10:50 AM EDT [facility] Clinical Information Gross hematuria R31.0 Urine cytology with reflex UroVysion ([facility]) 09/21/2024 10:50 AM EDT [facility] Gross Description A. Urine, Voided, ([id number]): Gross hematuria R31.0 09/21/2024 10:50 AM EDT [facility] Disclaimer Unless otherwise specified, all tissue is 10% NB formalin fixed and paraffin embedded. Technical pathology services provided by [facility] at [address] [facility] [address], [place] [address] (CLIA #[id number]/Gemini Cho MD, Console Attendant) 09/21/2024 10:50 AM EDT [facility] Tissue Urine specimen from urethra / Unknown 09/11/2024 09/12/2024 2:05 PM EDT us Satish Hammonds MD LAB PATHOLOGY ORDERABLES Edited Result - Final [facility] [address] [place] [address], documented in this encounter Visit Diagnoses Diagnosis Gross hematuria documented in this encounter Care Teams Brand Sales Manager Relationship Specialty Start Date End Date Satish Merida MD [address] [place] [address] PCP - General Internal Medicine 02/21/13 documented as of this encounter
--- OUTSIDE RECORDS SUMMARY | 2024-12-03 12:06 | XMS_ITS | Clinical Summary ---
Author Organization [facility] Address [address] [place], [place] [id number] Phone Care Team Providers Care Egg Trayer Name Role Phone Satish Merida Primary Care Provider +1- [phone] Social History Tobacco Use Types Packs/Day Years Used Date Smoking Tobacco: Never Assessed Education Answer Date Recorded Are you interested in more education? Not on francia e 09/10/2022 Are you concerned about learning? Not on file 09/10/2022 No 09/10/2022 No 09/10/2022 Digital Access Answer Date Recorded No 10/12/2022 No 10/12/2022 No 10/12/2022 Reliable internet access at home? Not on file 10/12/2022 Device with a working camera? Not on file Sex and Gender Information Value Date Recorded Sex Assigned at Not on file Legal Sex Male 8:43 AM EDT Gender Identity Not on file Sexual Orientation Not on file Last Filed Vital Signs Vital Sign Reading Time Taken Comments Blood Pressure 108/70 02/10/2018 9:34 AM EDT rec overy Pulse - - Temperature - - Respiratory Rate - - Oxygen Saturation 95% 02/10/2018 9:16 AM EDT stage II Inhaled Oxygen Concentration - - Weight 76.7 kg (169 lb) 02/10/2018 7:00 AM EDT Height 170.2 cm (5' 7 ) 02/10/2018 7:00 AM EDT Body Mass Index 26.47 02/10/2018 7:00 AM EDT Plan of Treatment Not on file Medical Devices Not on file Insurance MEDICARE PART A & B TOTAL CHOICE INDEMNITY MEDICARE PART A & B [facility] TOTAL CHOICE INDEMNITY MEDICARE PART A & B [employer] TOTAL CHOICE INDEMNITY MEDICARE PART A & B [employer] TOTAL CHOICE INDEMNITY MEDICARE PART A & B [facility] TOTAL CHOICE INDEMNITY MEDICARE PART A & B [facility] TOTAL CHOICE INDEMNITY MEDICARE PART A & B [facility] TOTAL CHOICE INDEMNITY MEDICARE PART A & B [employer] TOTAL CHOICE INDEMNITY MEDICARE PART A & B [employer] [facility] TOTAL CHOICE INDEMNITY Care Teams Egg Trayer Relationship Specialty Start Date End Date Satish Merida DO [address] [place] [address] PCP - General Internal Medicine 01/17/18 Additional Source Comments The information contained in this document represents components of the legal health record. It is not the complete legal health record.[facility]
== END 2024-12-03 11:33 | disposition home or self-care (01) ==
LOC: HO.HMCH 10:56
PROVIDERS: PCP Physician Assistant; Visit Provider Physician Assistant
DX: I10 Essential (primary) hypertension (principal); E03.9 Hypothyroidism, unspecified; C91.10 Chronic lymphocytic leukemia of B-cell type not having achieved remission; I48.0 Paroxysmal atrial fibrillation; I25.118 Atherosclerotic heart disease of native coronary artery with other forms of angina pectoris

== ENCOUNTER → 2024-12-03 10:55 | Outpatient (BNVA) | payer MEDICARE, OTHER, SELFPAY | PROVIDERS: PCP Physician Assistant; Visit Provider Physician Assistant | DX: I10 Essential (primary) hypertension (principal); E03.9 Hypothyroidism, unspecified; C91.10 Chronic lymphocytic leukemia of B-cell type not having achieved remission; I25.118 Atherosclerotic heart disease of native coronary artery with other forms of angina pectoris; I48.0 Paroxysmal atrial fibrillation | CPT/HCPCS: 99212 ==

== ENCOUNTER 2025-03-06 12:30 | Outpatient (AMB) | payer MEDICARE, OTHER, SELFPAY ==
[2025-03-06 12:57] VITALS: BP 120/80; PULSE 51; TEMP 36.6; O2SAT 98; BMI 26.2
--- NOTE | 2025-03-06 12:57 | AM.OFFWIN_ITS ---
Intake Vital Signs 03/06/25 12:57 Height 5 ft 7 in Weight 167 lb BMI 26.2 BP 120/80 Blood Pressure Location Lt brachial Position Sitting Pulse 51 Pulse Source Pulse Oximeter Temp 97.9 F Temp Source Oral Pulse Oximetry (%) 98 Oxygen Delivery Method Room Air Intake Visit Reasons: EP Pain under right eye Intake Note: Patient presents with tick on corner of right eye Patient Tobacco Use Status: Never used Tobacco Allergies Penicillins (PENICILLINS) Allergy (Mild, Verified 03/06/25 13:01) HIVES Medication List - Last Reconciled 03/06/25 by Rossy Manzo MD acetaminophen 1,000 mg (2 x 500 mg) PO Q6H PRN alpha lipoic acid 200 mg PO MOWEFR@0900 amiodarone 100 mg PO DAILY ascorbic acid (vitamin C) (Vitamin C) 1 g PO SUTUTH@0900 aspirin ER 162.5 mg PO DAILY blood pressure test kit-medium As directed cholecalciferol (vitamin D3) (Vitamin D3) 50 mcg PO SUTUTH@0900 coenzyme Q10 (CoQ-10) 200 mg PO DAILY compr.stocking,knee,long,small (T.E.D. Knee [facility] As directed ferrous sulfate 324 mg PO TUTHSA@0900 finasteride 5 mg PO DAILY isosorbide mononitrate ER 15 mg (1/2 x 30 mg) PO DAILY 90 days lactulose 10 grams (15 mL) PO DAILY PRN 30 days levothyroxine 150 mcg PO DAILY 30 days magnesium aspart,citrate,oxide 400 mg PO SUTUTH@0900 mexiletine 200 mg PO BID nitroglycerin 0.4 mg sublingual Q5M PRN 15 days ranolazine ER 500 mg PO BID rosuvastatin 20 mg PO BEDTIME 90 days tamsulosin 0.4 mg PO DAILY vit C,F-Ut-vnncs-lutein-zeaxan 250-90-40-1 mg (PreserVision AREDS-2) 1 tab PO BID vitamin B complex ER (Complex B-100 tablet,extended release) 1 tab PO Q2W Do you need a note to return to daycare/school/sports/work: No HPI HPI Comments History of Present Illness Details Patient was informed and verbally consented to the use of an ambient scribe for clinic note documentation during the visit. History of Present Illness The patient is an 79-year-old male presenting with a tick bite Right eyelid pain: - Patient presented with right eyelid pa in and was noted to have a tick along the outer corner of the right eye - The patient reports the sensation of a tick on the cheek, beginning a day prior to the visit. - Unsure how long the tick may have been attached. May have been > than 36 hours. - The patient describes having been outd oors the previous day, feeding birds and potentially brushing against tall weeds. - Reports he did not experience any pain prior to the sensation of the tick on the cheek. Review of Systems - Skin: Redness along area of tick bite - Eyes: No eye pain - General: Denies systemic symptoms such as fever or muscle aches Physical Exam General Appearance: Normal appearance, well developed. No acute distress Head: Imbedded tick noted along the outer corner of the right eye. Mild surrounding erythema present without swelling or drainage. Normocephalic, atraumatic Pulmonary: No respiratory distress. Speaking in full sentences Musculoskeletal: Moving all extremities spontaneously and against gravity Mental Status: Alert and Oriented x 3 Psychiatric: Normal mood. Normal affect. PENDING SALE TO [facility] Medical History Laceration of right index finger w/o foreign body w/o damage to nail Medicare annual wellness visit, initial Medicare annual wellness visit, initial Skin cancer, basal cell Hypothyroidism Hypercholesterolemia Hx of cardiac arrest CAD (coronary artery disease) CLL (chronic lymphocytic leukemia) Surgical History History of biopsy of bladder Hx of colonoscopy History of bilateral knee arthroplasty Hx of thyroidectomy Family History Mother Breast cancer Father Aneurysm Sister Pancreatic cancer Daughter Thyroid cancer Social History Household Members: Children Household Members Other:: daughter Housing: House Do you presently have visiting nurse or other home services: No Alcohol intake: current Alcohol intake frequency: a few times a week Alcohol type: beer Comment: Pt. refused all fall risk precautions Patient Tobacco Use Status: Never used Tobacco e-Cigarette/Vaping Use: Never Used Second Hand Smoke Exposure: No service: No Current occupational status: retired Current occupational exposures/hazards: No Cognitive needs: No Hearing needs: Yes Vision needs: Yes Physical Exam Vital Signs: Last Vital Signs Temp 97.9 F 03/06/25 12:57 Pulse 51 03/06/25 12:57 BP 120/80 03/06/25 12:57 Pulse Ox 98 03/06/25 12:57 Oxygen Delivery Method Room Air 03/06/25 12:57 BMI result Body Mass Index 26.2 Office Procedures AMB Foreign Body Removal Details: Tick removal with forceps performed along the outer corner of the right eye Foreign Body Removal Simple: [id number], simple Procedure code (CPT) selection complete Assessment & Plan Assessment & Plan (1) Tick bite of right eyelid: Code(s): S00.261A - Insect bite (nonvenomous) of right eyelid and periocular area, initial encounter; W57.XXXA - Bitten or stung by nonvenomous insect and other nonvenomous arthropods, initial encounter Qualifiers: Encounter type: initial encounter Qualified Code(s): S00.261A - Insect bite (nonvenomous) of right eyelid and periocular area, initial encounter; W57.XXXA - Bitten or stung by nonvenomous insect and other nonvenomous arthropods, initial encounter Plan Assessment and Plan 1. Tick infestation - The tick was successfully removed from the outer corner of the right eye with minimal discomfort reported by the patient. - Given the uncertainty regarding the duration of the tick?s attachment, a prophylactic approach to prevent Lyme disease was discussed. - Prescribed a one-time administration of doxycycline, two pills, to be taken with food and remaining upright for at least 30 minutes post-ingestion - Advised on potential side effects of doxycycline, including photosensitivity. - Provided educational materials on preventing future tick bites and recognizing Lyme disease symptoms, like flu-like symptoms, myalgia, and fatigue. - Discussed the importance of monitoring for signs of infection at the tick site, such as increased redness, swelling, or discharge, which would necessitate further medical evaluation. Orders: Orders AMB Removal of foreign body Today S00.261A - Insect bite (nonvenomous) of right eyelid and periocular area, initial encounter, W57.XXXA - Bitten or stung by nonvenomous insect and other nonvenomous arthropods, initial encounter Medications: New doxycycline hyclate 200 mg (2 x 100 mg) PO ONCE 2 caps 0RF Coding Level of Care Code Est Pt Level 3 (25461) Diagnoses Tick bite of right eyelid, initial encounter S00.261A; W57.XXXA Encounter type: initial encounter CPT Codes Details - Foreign body simple: [id number], simple ([id number])
--- OUTSIDE RECORDS SUMMARY | 2025-03-06 17:19 | XMS_ITS | Clinical Summary ---
Author Organization [facility] Address [address] [place], [place] [id number] Phone Care Team Providers Care Manager Compensation Name Role Phone Satish Merida Primary Care Provider [phone]- [phone] Social History Tobacco Use Types Packs/Day Years [...] CHOICE INDEMNITY MEDICARE PART A & B [facility] TOTAL CHOICE INDEMNITY MEDICARE PART A & B [employer] TOTAL CHOICE INDEMNITY MEDICARE PART A & B [employer] TOTAL CHOICE INDEMNITY MEDICARE PART A & B [facility] TOTAL CHOICE INDEMNITY MEDICARE PART A & B [facility] TOTAL CHOICE INDEMNITY MEDICARE PART A & B [facility] TOTAL CHOICE INDEMNITY MEDICARE PART A & B [employer] TOTAL CHOICE INDEMNITY MEDICARE PART A & B [employer] [facility] TOTAL CHOICE INDEMNITY Care Teams Manager Compensation Relationship Specialty Start Date End Date Satish Merida DO [address] [place] [address] PCP - General Internal Medicine 01/17/18 Additional Source Comments The information contained in this document represents components of the legal health record. It is not the complete legal health record.[facility]
--- OUTSIDE RECORDS SUMMARY | 2025-03-06 17:19 | XMS_ITS | Encounter Summary ---
Author Organization [facility] Address [address] [place] [address] Care Team Providers Care Nascar Driver Name Role Phone Satish Merida MD Primary Care Provider [phone] Encounter Details Date Type Department Care Team (Late st Contact Info) Description 02/07/[address] [facility] - Main Lab [address] [facility] [place] [address] Demetrius Mae MD [address] [facility] [address] [place], [place] [id number] Urinary tract infection, site not specified Social History Tobacco Use Types Packs/Day Years [...] Procedure Name Priority Date/Time Associated Diagnosis Comments CULTURE URINE Routine 02/07/2025 3:10 PM EDT Urinary tract infection, site not specified documented in this encounter Results * (ABNORMAL) Culture urine (02/07/2025 3:10 PM EDT) Culture, Urine 10,000-49,000 CFU/mL Escherichia coli(A) DARIELA 02/09/2025 10:01 AM EDT [facility] Urine Urine specimen obtained by clean catch procedure / Unknown 02/07/2025 3:10 PM EDT 02/07/2025 6:16 PM EDT Narrative Organism Antibiotic Method Susceptibility Escherichia coli Amoxicillin/Clavulanate DARIELA <=2 ug/ml: Susceptible Escherichia coli Ampicillin/Sulbactam DARIELA <=2 ug/ml: Susceptible Escherichia coli Piperacillin/Tazobactam DARIELA <=4 ug/ml: Susceptible Escherichia coli Cefazolin (Urine) DARIELA <=1 ug/ml: Susceptible Escherichia coli Cefoxitin DARIELA <=4 ug/ml: Susceptible Escherichia coli Ceftazidime DARIELA <=0.5 ug/ml: Susceptible Escherichia coli Ceftriaxone DARIELA <=0.25 ug/ml: Susceptible Escherichia coli Cefepime DARIELA <=0.12 ug/ml: Susceptible Escherichia coli Meropenem DARIELA <=0.25 ug/ml: Susceptible Escherichia coli Amikacin DARIELA 4 ug/ml: Susceptible Escherichia coli Gentamicin DARIELA <=1 ug/ml: Susceptible Escherichia coli Ciprofloxacin DARIELA <=0.06 ug/ml: Susceptible Escherichia coli Levofloxacin DARIELA <=0.12 ug/ml: Susceptible Escherichia coli Nitrofurantoin DARIELA <=16 ug/ml: Susceptible Escherichia coli Trimethoprim/Sulfamethoxazole DARIELA <=20 ug/ml: Susceptible us Demetrius Mae MD LAB MICROBIOLOGY - NERAL ORDERABLES Final Result [facility] [address] [place] [address], documented in this encounter Visit Diagnoses Diagnosis Urinary tract infection, site not specified documented in this encounter Care Teams Nascar Driver Relationship Specialty Start Date End Date Satish Merida MD [address] [place] [address] [place] [address] PCP - General Internal Medicine 02/21/13 documented as of this encounter
--- OUTSIDE RECORDS SUMMARY | 2025-03-06 17:19 | XMS_ITS | Clinical Summary ---
Author Organization 299 [facility] Address [address] [place] [address] Phone Care Team Providers Care Construction Lineman Name Role Phone Satish Merida MD Primary Care Provider Encounters Date Type Department Care Team Description 02/07/[address] [facility] - Main Lab 299 [facility] [place] [address] Demetrius Mae MD Urinary tract infection, site not specified from Last 3 Months Surgical History Surgery Date Site/Laterality Comments OTHER SURGICAL HISTORY 12/20/2016 PROCEDURE: HISTORICAL ICD ANGIOPLASTY 2012 PROCEDURE: HISTORICAL ANGIOPLASTY W/STENT; COMMENT: RCA- MAIK CARDIAC CATHETERIZATION 04/27/2018 PROCEDURE: HISTORICAL CARDIAC CATH; COMMENT: moderate disease pRCA, widely patent distal stent. Moderate disease LAD CARDIAC CATHETERIZATION 12/16/2016 PROCEDURE: HISTORICAL CARDIAC CATH Medical History Medical History Date Comments Bradycardia 08/28/2018 DX:Bradycardia; COMMENT: ICD History of implantable cardioverter-defibrillator (ICD) placement 08/28/2018 DX:History of implantable cardioverter-defibrillator (ICD) placement History of cardiac arrest 08/28/2018 DX:His tory of cardiac arrest Hyperlipidemia 08/28/2018 DX:Hyperlipidemi a Hypertension 08/28/2018 DX:Hypertension Ischemic cardiomyopathy 08/28/2018 DX:Ische darius cardiomyopathy; COMMENT: ECHO 05/2018 EF = 40-45% Mild mitral regurgitation 08/28/2018 DX:Mil d mitral regurgitation PAF (paroxysmal atrial fibri llation) (CMS/HCC V24, CMS/HCC V28) 08/28/2018 DX:PAF (paroxysmal atrial fibrillation) (HCC) Venous incompetence 08/28/2018 DX:Venous in competence Family History Medical History Relation Name Comments Stomach cancer Aunt Materna Heart attack Father age 81 Breast cancer Maternal Grandmother Breast cancer Mother Pancreatic cancer Sister Relation Name Status Comments Aunt Materna Father Maternal Grandmother Mother Sister Social History Tobacco Use Types Packs/Day Years Used Date Smoking Tobacco: Never Smokeless Tobacco: Never Alcohol Use Standard Drinks/Week Comments Yes 0 (1 standard drink = 0.6 oz pur e alcohol) Sex and Gender Information Value Date Recorded Sex Assigned at Not on file Legal Sex Male 8:05 AM EST Gender Identity Not on file Sexual Orientation Not on file Obstetrics History Plan of Treatment Health Maintenance Due Date Last Done Comments DTaP,Tdap,and Td Vaccines (1 - Tdap) 1963 Pneumococcal Vaccine: 50+ Ye ars (1 of 1 - PCV) 1994 Zoster Vaccines (1 of 2) 1994 RSV Immunization Adult Patie nts (1 - 1-dose 75+ series) 2019 Depression Screening 05/16/2024 Cholesterol Screening (Lipid Panel) 09/13/2024 Falls Risk Assessment 09/13/2024 Hypertension/CHF/CAD Annual BMP Blood Test 09/13/2024 Medicare Annual Wellness Visit 09/13/2024 Social Influencers of Health Screening 09/13/2024 COVID-19 Vaccine ( - 2023-2 5 season) 2025 Influenza Vaccine (#1) 2025 HIB Vaccines Aged Out No longer eligi ble based on patient's age to complete this topic HPV Vaccines Aged Out No longer eligi ble based on patient's age to complete this topic Hepatitis A Vaccines Aged Out No long er eligible based on patient's age to complete this topic Hepatitis B Vaccines Aged Out No long er eligible based on patient's age to complete this topic IPV Vaccines Aged Out No longer eligi ble based on patient's age to complete this topic MMR Vaccines Aged Out No longer eligi ble based on patient's age to complete this topic Meningococcal ACWY Vaccine Aged Out N o longer eligible based on patient's age to complete this topic Meningococcal B Vaccine Aged Out No l onger eligible based on patient's age to complete this topic RSV Immunization Patients Un luis 20 months Aged Out No longer eligible b ased on patient's age to complete this topic Varicella Vaccines Aged Out No longer eligible based on patient's age to complete this topic Procedures Procedure Name Priority Date/Time Associated Diagnosis Comments CULTURE URINE Routine 02/07/2025 3:10 PM EDT Urinary tract infection, site not specified from Last 3 Months Results * (ABNORMAL) Culture urine (02/07/2025 3:10 PM EDT) Culture, Urine 10,000-49,000 CFU/mL Escherichia coli(A) DARIUS 02/09/2025 10:01 AM EDT [facility] Urine Urine specimen obtained by clean catch procedure / Unknown 02/07/2025 3:10 PM EDT 02/07/2025 6:16 PM EDT Narrative Organism Antibiotic Method Susceptibility Escherichia coli Amoxicillin/Clavulanate DARIUS <=2 ug/ml: Susceptible Escherichia coli Ampicillin/Sulbactam DARIUS <=2 ug/ml: Susceptible Escherichia coli Piperacillin/Tazobactam DARIUS <=4 ug/ml: Susceptible Escherichia coli Cefazolin (Urine) DARIUS <=1 ug/ml: Susceptible Escherichia coli Cefoxitin DARIUS <=4 ug/ml: Susceptible Escherichia coli Ceftazidime DARIUS <=0.5 ug/ml: Susceptible Escherichia coli Ceftriaxone DARIUS <=0.25 ug/ml: Susceptible Escherichia coli Cefepime DARIUS <=0.12 ug/ml: Susceptible Escherichia coli Meropenem DARIUS <=0.25 ug/ml: Susceptible Escherichia coli Amikacin DARIUS 4 ug/ml: Susceptible Escherichia coli Gentamicin DARIUS <=1 ug/ml: Susceptible Escherichia coli Ciprofloxacin DARIUS <=0.06 ug/ml: Susceptible Escherichia coli Levofloxacin DARIUS <=0.12 ug/ml: Susceptible Escherichia coli Nitrofurantoin DARIUS <=16 ug/ml: Susceptible Escherichia coli Trimethoprim/Sulfamethoxazole DARIUS <=20 ug/ml: Susceptible us Demetrius Mae MD LAB MICROBIOLOGY - NERAL ORDERABLES Final Result [facility] ([facility]) [facility] [address] [place] [address], [place] [phone] from Last 3 Months Insurance MEDICARE [facility] Care Teams Construction Lineman Relationship Specialty Start Date End Date Satish Merida MD [address] [place] [address] [address] [place] PCP - General Internal Medicine 02/21/13
--- OUTSIDE RECORDS SUMMARY | 2025-03-06 17:19 | XMS_ITS | Encounter Summary ---
Author Organization [facility] Address [id number] [place] [address] Care Team Providers Care Seafood Service Team Member Name Role Phone Satish Merida MD Primary Care Provider [phone] Encounter Details Date Type Department Care Team (Late st Contact Info) Description 09/12/2024 Lab Requisition [facility] - Main Lab 299 [facility] [place] [address] Satish Hammonds MD [address] [facility] 120 [place] [address] Gross hematuria Social History Tobacco [...] for urothelial carcinoma. 09/21/2024 10:50 AM EDT [facility] ([facility]) [facility] Addendum electronically signed by John Torres MD on 09/21/2024 at 10:50 AM Final Diagnosis A. Urine, Voided, ([id number]): Atypical urothelial cells. Note: Based upon the cytologic findings, UroVysion testing will be performed, the result to follow in an addendum. 09/21/2024 10:50 AM EDT [facility] Clinical Information Gross hematuria R31.0 Urine cytology with reflex UroVysion ([facility]) 09/21/2024 10:50 AM EDT [facility] Gross Description A. Urine, Voided, ([id number]): Gross hematuria R31.0 09/21/2024 10:50 AM EDT [facility] Disclaimer Unless otherwise specified, all tissue is 10% NB formalin fixed and paraffin embedded. Technical pathology services provided by [facility] at [address] [facility] [address], [place] [address] (CLIA #[id number]/Gemini Cho MD, Metal Products Viewer) 09/21/2024 10:50 AM EDT [facility] Tissue Urine specimen from urethra / Unknown 09/11/2024 09/12/2024 2:05 PM EDT us Satish Hammonds MD LAB PATHOLOGY ORDERABLES Edited Result - Final [facility] [address] [place] [address], documented in this encounter Visit Diagnoses Diagnosis Gross hematuria documented in this encounter Care Teams Seafood Service Team Member Relationship Specialty Start Date End Date Satish Merida MD [address] [place] [address] PCP - General Internal Medicine 02/21/13 documented as of this encounter
--- OUTSIDE RECORDS SUMMARY | 2025-03-06 17:19 | XMS_ITS | Encounter Summary ---
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 Procedures NC Myocardial Perfusion Exercise Multiple Garfield Wild MD Phone: tel: Referral ID Status Reason Start Date Expiration Date Visits Re quested Visits Authorized [id number] Closed 01/17/2018 01/17/2019 1 1 Encounter Details Date Type Department Care Team (Latest Contact Info) Description 01/17/2018 [facility] [address] [facility] 3rd Floor, [address] [place] [address] Garfield Wild MD [address] [facility] 1 [place] [address] 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 (Primary Dx) Social History Tobacco Use Types Packs/Day Years Used Date Smoking Tobacco: Never Assessed Sex and Gender Information Value Date Recorded Sex Assigned at Not on file Legal Sex Male 8:43 AM EDT Gender Identity Not on file Sexual Orientation Not on file documented as of this encounter Plan of Treatment Not on file documented as of this encounter Results * NC Myocardial Perfusion Exercise Multiple (02/20/2018 9:00 AM EDT) Nuc Stress EF 51 % LV Systolic Volume 90 mL LV Diastolic Volume 176 mL EF 49 % LV Systolic Volume Index 80 mL/m2 LV Diastolic Volume Index 162 mL/m2 Anatomical Region Laterality Modality Heart, Vascular Ultrasound Narrative 02/20/2018 2:14 PM EDT Probably normal study. There appears to be a fixed inferior basal defect but the prone imaging shows normal perfusion in that territory. It may just be diaphragmatic attenuation. There is no clear evidence of myocardial infarction or ischemia. Normal LV size and function with no regional wall motion abnormalities. Very low likelihood of hemodynamically significant coronary artery disease. Low risk study for myocardial events or cardiac in the next two years. Nuclear Study Quality Overall image quality is good. The test performed was a Two-Day Benedict Protocol exercise stress test. Tc99m Sestamibi injected intravenously at peak stress followed by one minute of exercise. The stress images were obtained 20 minutes following the radiopharmaceutical injection and the resting images were obtained approximately 45 minutes following the radiopharmaceutical injection.. Diaphragmatic attenuation artifact is present. Study was successfully gated. Response to Stress BMI26.47 Patient exercised for 11: 47 minutes on a Benedict protocol achieving 13.7 METs. Test terminated due to ventricular ectopy and patient's history of ICD discharges. Maximum heart rate achieved with exercise was at about 75% of the MPHR. Target heart rate was not achieved in stage IV. 1. Baseline EKG showed normal sinus rhythm with nonspecific ST T wave of normalities, PVC. There was an exaggeration of baseline abnormalities in the lateral leads during exercise. 2. No chest pain. 3. Normal blood pressure response to exercise. Good functional capacity for age. 4. Occasional PVCs noted. There was an increase in the frequency of PVCs at peak exercise. Conclusion: No definite ischemic EKG changes with exercise. Nuclear images pending and will be reported separately. Sohail Green NP . Perfusion Comments The TID ratio was 0.8. Stress Function Comments Post-stress ejection fraction was 51%. Stress end diastolic index: 162 mL/m2. Rest Function Comments Resting ejection fraction was 49%. Rest end diastolic index: 176 mL. Rest end systolic index: 90 mL. Perfusion Scoring Stress Summed Score: 0 Percent Normal: 0.00% The left ventricular perfusion is normal. Perfusion Scoring Resting Summed Score: 0 Percent Normal: 0.00% The left ventricular perfusion is normal. 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 It is not the complete legal health record.[facility]
== END 2025-03-06 13:59 | disposition home or self-care (01) ==
PROVIDERS: PCP Physician Assistant; Visit Provider Family Medicine
DX: S00.261A Insect bite (nonvenomous) of right eyelid and periocular area, initial encounter (principal); W57.XXXA Bitten or stung by nonvenomous insect and other nonvenomous arthropods, initial encounter
CPT/HCPCS: 99213

== ENCOUNTER → 2025-03-06 12:30 | Outpatient (BNVA) | payer MEDICARE, OTHER, SELFPAY | PROVIDERS: PCP Physician Assistant; Visit Provider Family Medicine | DX: S00.261A Insect bite (nonvenomous) of right eyelid and periocular area, initial encounter (principal); W57.XXXA Bitten or stung by nonvenomous insect and other nonvenomous arthropods, initial encounter; Y93.9 Activity, unspecified; Y92.9 Unspecified place or not applicable; Y99.9 Unspecified external cause status | CPT/HCPCS: 10120; 99212 ==

== ENCOUNTER → 2025-03-14 11:20 | Outpatient (BNVA) | payer MEDICARE, OTHER, SELFPAY | PROVIDERS: PCP Physician Assistant; Visit Provider Physician Assistant Medical | DX: S40.862A Insect bite (nonvenomous) of left upper arm, initial encounter (principal); W57.XXXA Bitten or stung by nonvenomous insect and other nonvenomous arthropods, initial encounter | CPT/HCPCS: 99212 ==

== ENCOUNTER 2025-03-14 16:03 | Outpatient (AMB) | payer MEDICARE, OTHER, SELFPAY ==
[2025-03-14 16:05] VITALS: BP 140/80; PULSE 53; TEMP 36.6; O2SAT 99; BMI 26.0
--- NOTE | 2025-03-14 16:05 | MHC.OFFWIV ---
Intake Vital Signs 03/14/25 16:05 Height 5 ft 7 in Weight 166 lb BMI 26.0 BP 140/80 H Blood Pressure Location Rt brachial Position Sitting Pulse 53 Pulse Source Pulse Oximeter Temp 98 F Temp Source Oral Pulse Oximetry (%) 99 Oxygen Delivery Method Room Air Intake Visit Reasons: EP Tick bite Intake Note: EP complains of tick bite which itchy over his left shoulder around two days ago. Patient Tobacco Use Status: Never used Tobacco Allergies Penicillins (PENICILLINS) Allergy (Mild, Verified 03/14/25 16:17) HIVES Do you need a note to return to daycare/school/sports/work: No HPI HPI Comments History of Present Illness Details History - The patient is an 79-year-old male presenting with a tick bite to the left arm. - The tick bite may have occurred either concurrently with a previous bite or this past Tuesday. - The tick remains attached, and the patient attempted removal, potentially causing damage. - Prophylactic antibiotics were administered a week ago for a prior tick bite to his eyelid on 03/06. - The patient noted itching at the site starting yesterday. - He thinks that the tick is still in the arm. - He denies fever, chills, fatigue or joint pain. - He denies numbness or tingling. Physical Exam General: Cooperative, healthy appearing, comfortable, no acute distress and well developed Orientation: Patient oriented x3 Limitations: No limitations Respiratory: Normal respiratory effort and able to speak in complete sentences. Skin: Tick present on the left upper outer arm. No erythema, bleeding, or bulls eye. Neuro: Sensation is intact. Patient was informed and verbally consented to the use of an ambient scribe for clinic note documentation during this visit. [facility] Medical History Laceration of right index finger w/o foreign body w/o damage to nail Medicare annual wellness visit, initial Medicare annual wellness visit, initial Skin cancer, basal cell Hypothyroidism Hypercholesterolemia Hx of cardiac arrest CAD (coronary artery disease) CLL (chronic lymphocytic leukemia) Surgical History History of biopsy of bladder Hx of colonoscopy History of bilateral knee arthroplasty Hx of thyroidectomy Family History Mother Breast cancer Father Aneurysm Sister Pancreatic cancer Daughter Thyroid cancer Social History Household Members: Children Household Members Other:: daughter Housing: House Do you presently have visiting nurse or other home services: No Alcohol intake: current Alcohol intake frequency: a few times a week Alcohol type: beer Comment: Pt. refused all fall risk precautions Patient Tobacco Use Status: Never used Tobacco e-Cigarette/Vaping Use: Never Used Second Hand Smoke Exposure: No service: No Current occupational status: retired Current occupational exposures/hazards: No Cognitive needs: No Hearing needs: Yes Vision needs: Yes Review of Systems Const All systems reviewed & are unremarkable except as noted in HPI and below Physical Exam Vital Signs: Last Vital Signs Temp 98 F 03/14/25 16:05 Pulse 53 03/14/25 16:05 BP 140/80 H 03/14/25 16:05 Pulse Ox 99 03/14/25 16:05 Oxygen Delivery Method Room Air 03/14/25 16:05 BMI result Body Mass Index 26.0 Assessment & Plan Assessment & Plan (1) Tick bite: Code(s): W57.XXXA - Bitten or stung by nonvenomous insect and other nonvenomous arthropods, initial encounter Qualifiers: Encounter type: initial encounter Site of tick bite: upper arm Laterality: left Qualified Code(s): S40.862A - Insect bite (nonvenomous) of left upper arm, initial encounter; W57.XXXA - Bitten or stung by nonvenomous insect and other nonvenomous arthropods, initial encounter Plan Most likely tick bite tick removed in the office today Plan - Monitor the tick bite site for infection or erythema. - Apply topical antibiotic ointment to prevent infection. - Reassurance given about the effectiveness of recent antibiotic prophylaxis. - keep the area clean and dry - bacitracin to the area - follow up with PCP Coding Level of Care Code Est Pt Level 3 (75827) Diagnoses Tick bite of left upper arm, initial encounter S40.862A; W57.XXXA Encounter type: initial encounter Site of tick bite: upper arm Laterality: left
--- OUTSIDE RECORDS SUMMARY | 2025-03-14 18:17 | XMS_ITS | Clinical Summary ---
Author Organization 299 [facility] Address [address] [place] [address] Phone Care Team Providers Care Traffic Control Signaler Name Role Phone Satish Merida MD Primary Care Provider [phone] Encounters Date Type Department Care Team Description 02/07/[address] [facility] - Main Lab [address] [facility] [employer] [place] [address] Demetrius Mae MD Urinary tract [...] Escherichia coli(A) DARIUS 02/09/2025 10:01 AM EDT [facility] Urine Urine specimen obtained by [...] LAB MICROBIOLOGY - NERAL ORDERABLES Final Result [facility] ([facility]) [facility] [address] [place] [address], [place] [phone] from Last 3 Months Insurance MEDICARE [facility] Care Teams Traffic Control Signaler Relationship Specialty Start Date End Date Satish Merida MD [address] [place] [address] [address] PCP - General Internal Medicine 02/21/13
--- OUTSIDE RECORDS SUMMARY | 2025-03-14 18:17 | XMS_ITS | Encounter Summary ---
Author Organization [facility] Address [address] [place] [address] Care Team Providers Care Elevator Examiner And Adjuster Name Role Phone Satish Merida MD Primary Care Provider [phone] Encounter Details Date Type Department Care Team (Late st Contact Info) Description 02/07/2025 Lab Requisition [facility] - Main Lab [address] [facility] [place] [address] Demetrius Mae MD [address] [facility] [address] [place], [place] [phone] Urinary tract infection, site not specified Social [...] Escherichia coli(A) DARIELA 02/09/2025 10:01 AM EDT [facility] Urine Urine specimen obtained by [...] DARIELA <=0.25 ug/ml: Susceptible Escherichia coli Cefepime DRAIELA <=0.12 ug/ml: Susceptible Escherichia coli Meropenem DARIELA <=0.25 ug/ml: Susceptible Escherichia coli Amikacin DARIELA 4 ug/ml: Susceptible Escherichia coli Gentamicin DARIELA <=1 ug/ml: Susceptible Escherichia coli Ciprofloxacin DARIELA <=0.06 ug/ml: Susceptible Escherichia coli Levofloxacin DARIELA <=0.12 ug/ml: Susceptible Escherichia coli Nitrofurantoin DARIELA <=16 ug/ml: Susceptible Escherichia coli Trimethoprim/Sulfamethoxazole DARIELA <=20 ug/ml: Susceptible us Demetrius Mae MD LAB MICROBIOLOGY - NERAL ORDERABLES Final Result [facility] [address] [place] [address], documented in this encounter Visit Diagnoses Diagnosis Urinary tract infection, site not specified documented in this encounter Care Teams Elevator Examiner And Adjuster Relationship Specialty Start Date End Date Satish Merida MD [address] [place] [address] [place] [address] PCP - General Internal Medicine 02/21/13 documented as of this encounter
--- OUTSIDE RECORDS SUMMARY | 2025-03-14 18:17 | XMS_ITS | Encounter Summary ---
Author Organization [facility] Address [id number] [place] [id number] Care Team Providers Care Music Therapy Specialist Name Role Phone Satish Merida MD Primary Care Provider [phone] Encounter Details Date Type Department Care Team (Late st Contact Info) Description 09/12/2024 Lab Requisition [facility] Main Lab [address] [facility] [employer] [address] Satish Hammonds MD [address] [facility] [address] [place] [address] Gross hematuria Social History Tobacco [...] for urothelial carcinoma. 09/21/2024 10:50 AM EDT [facility] ([facility]) [facility] Addendum electronically signed by John Torres MD on 09/21/2024 at 10:50 AM Final Diagnosis A. Urine, Voided, ([id number]): Atypical urothelial cells. Note: Based upon the cytologic findings, UroVysion testing will be performed, the result to follow in an addendum. 09/21/2024 10:50 AM EDT [facility] Clinical Information Gross hematuria R31.0 Urine cytology with reflex UroVysion ([facility]) 09/21/2024 10:50 AM EDT [facility] Gross Description A. Urine, Voided, ([id number]): Gross hematuria R31.0 09/21/2024 10:50 AM EDT [facility] Disclaimer Unless otherwise specified, all tissue is 10% NB formalin fixed and paraffin embedded. Technical pathology services provided by [facility] at [address] [facility] [address], [place] [address] (CLIA #[id number]/Gemini Cho MD, Staff Assistant) 09/21/2024 10:50 AM EDT [facility] Tissue Urine specimen from urethra / Unknown 09/11/2024 09/12/2024 2:05 PM EDT us Satish Hammonds MD LAB PATHOLOGY ORDERABLES Edited Result - Final [facility] [address] [place] [address], documented in this encounter Visit Diagnoses Diagnosis Gross hematuria documented in this encounter Care Teams Music Therapy Specialist Relationship Specialty Start Date End Date Satish Merida MD [address] [place] [address] PCP - General Internal Medicine 02/21/13 documented as of this encounter
== END 2025-03-14 16:46 | disposition home or self-care (01) ==
PROVIDERS: PCP Physician Assistant; Visit Provider Physician Assistant Medical
DX: S40.862A Insect bite (nonvenomous) of left upper arm, initial encounter (principal); W57.XXXA Bitten or stung by nonvenomous insect and other nonvenomous arthropods, initial encounter